=== PATIENT | female | born 1945 | race Caucasian/White ===

== ENCOUNTER 2017-02-20 23:43 | Emergency (ER) | payer OTHER ==
[~2017-02-20] VITALS: Ht 157.5 cm; Wt 83.6 kg
[~2017-02-20 23:43] MED LIST: CALC-179 OR; LEVO.1 PO; MULTCAP13 PO; TRAZ50TA4 PO; ZOLO20CO PO
[2017-02-21 00:13] VITALS: BP 160/89; PULSE 79; RESP 20; TEMP 98.5; O2SAT 95
== END 2017-02-21 01:21 | disposition left against medical advice (07) ==
LOC: PHED 23:43
DX: Z53.21 Procedure and treatment not carried out due to patient leaving prior to being seen by health care provider (principal)
CPT/HCPCS: 99281

== ENCOUNTER 2018-01-18 15:18 | Emergency (ER) | payer OTHER ==
[~2018-01-18] VITALS: Ht 157.5 cm; Wt 82.0 kg
[2018-01-18 15:26] VITALS: BP 206/100; PULSE 85; RESP 16; TEMP 98.6; O2SAT 94
[2018-01-18] MEDS ORDERED: TRAM50TA PO (15:50)
[2018-01-18] MEDS ORDERED: LEVO.1 PO (15:50)
[2018-01-18] MEDS ORDERED: HYDR25TA5 PO (15:50)
[2018-01-18] MEDS ORDERED: SERT25TA83 PO (15:50)
[2018-01-18] MEDS ORDERED: GABA600T PO (15:50)
[2018-01-18] MEDS ORDERED: SODIUM CHLORIDE 0.9% FLUSH 10 ML FLUSH IV FLUSH PRN (16:00)
[2018-01-18] MEDS ORDERED: ACETAMINOPHEN/HYDROcodone 325 MG/5 MG TAB PO ONE (16:00)
[2018-01-18] MEDS ORDERED: ORPHENADRINE INJ 60 MG/2 ML AMP IM ONE (16:00)
--- NOTE | 2018-01-18 16:16 | RADRPT ---
EXAM DATE/TIME: 01/18/2018 15:55 [facility] COMPARISON: No previous studies available for comparison. INDICATIONS : Right sided chest and shoulder pain with shortness of breath. MEDICAL HISTORY : Congestive heart failure. Hypothyroidism. Skin cancer. SURGICAL HISTORY : Hysterectomy. Tonsillectomy. ENCOUNTER: Initial ACUITY: 2 days PAIN SCORE: 10/10 LOCATION: Bilateral chest Right side, down shoulder blade. FINDINGS: Linear parenchymal changes both lung base is noted with elevation of the right hemidiaphragm. The por tion of the bony skeleton visualized is unremarkable. CONCLUSION: Elevation right hemidiaphragm and bibasilar parenchymal changes. No pneumothorax. Mikey Tong MD FACR on January 18, 2018 at 16:11 Board Certified Radiologist. This report was verified electronically.
[2018-01-18 16:26] VITALS: O2SAT 98
--- NOTE | 2018-01-18 17:20 | PD ---
HPI Chief Complaint: Musculoskeletal Complaint Time Seen by Provider: 15:40 Travel History International Travel<30 days: No Contact w/Intl Traveler<30days: No Traveled to known affect area: No History of Present Illness HPI Patient is a 72-year-old female presents emergency department for evaluation of right shoulder pain. Patient states her pain started this morning when she woke up and hurts her when she takes a deep breath and also she has noticed some pain underneath her right breast. Patient denies any nausea vomiting substernal chest pain shortness of breath. She states the pain really radiates from her right posterior neck and she thinks she pulled a muscle but does not recall any injury. She states she took a Soma prior to arrival and this has not helped her. She never had pain like this before. She states the pain is severe, right shoulder radiating from the right abdomen, associated signs and symptoms and contacts as above. PFSH Past Medical History Cancer: No Cardiovascular Problems: No Diabetes: No Diminished Hearing: No Endocrine: No Gastrointestinal Disorders: No Genitourinary: No Hepatitis: No Hiatal Hernia: No Hypertension: No Immune Disorder: No Musculoskeletal: No Neurologic: No Reproductive: No Respiratory: No Immunizations Current: No Thyroid Disease: Yes Past Surgical History Abdominal Surgery: No Cardiac Surgery: No Ear Surgery: No Endocrine Surgery: No Eye Surgery: No Genitourinary Surgery: No Gynecologic Surgery: Yes (HYSTERECTOMY, A&P REPAIR) Hysterectomy: Yes Joint Replacement: No Neurologic Surgery: No Oral Surgery: No Pacemaker: No Thoracic Surgery: No Tonsillectomy: Yes Other Surgery: Yes Social History Alcohol Use: No Tobacco Use: No Substance Use: No Allergies-Medications (Allergen,Severity, Reaction): Coded Allergies: penicillin G (Unverified Allergy, Severe, Anaphylaxis, 01/18/18) Uncoded Allergies: NSAIDS (Allergy, Severe, SWELLING, 01/18/18) Reported Meds & Prescriptions Reported Meds & Active Scripts Active Reported Tramadol (Tramadol HCl) 50 Mg Tab 50 Mg PO Q4H PRN Hydrochlorothiazide 25 Mg Tab 25 Mg PO DAILY PRN Gabapentin 600 Mg Tab 600 Mg PO HS Sertraline (Sertraline HCl) 25 Mg Tab 25 Mg PO DAILY Synthroid (Levothyroxine Sodium) 100 Mcg Tab 100 Mcg PO DAILY Review of Systems Except as stated in HPI: all other systems reviewed are Neg Physical Exam Narrative GENERAL: Well-developed well-nourished, no obvious distress. SKIN: Focused skin assessment warm/dry. HEAD: Atraumatic. Normocephalic. EYES: Pupils equal and round. No scleral icterus. No injection or drainage. ENT: No nasal bleeding or discharge. Mucous membranes pink and moist. NECK: Trachea midline. No JVD. CARDIOVASCULAR: Regular rate and rhythm. No murmur appreciated. RESPIRATORY: No accessory muscle use. Clear to auscultation. Breath sounds equal bilaterally. GASTROINTESTINAL: Abdomen soft, non-tender, nondistended. Hepatic and splenic margins not palpable. No true tenderness in the right upper quadrant, no rebound no percussive tenderness, psoas and obturator signs negative, Eaton sign negative, no CVA tenderness. MUSCULOSKELETAL: No obvious deformities. No clubbing. No cyanosis. No edema. There is no midline CT or L-spine tenderness NEUROLOGICAL: Awake and alert. No obvious cranial nerve deficits. Motor grossly within normal limits. Normal speech. PSYCHIATRIC: Appropriate mood and affect; insight and judgment normal. Data Data Last Documented VS Vital Signs Date Time Temp Pulse Resp B/P (MAP) Pulse Ox O2 Delivery O2 Flow Rate FiO2 01/18/18 16:26 98 Room Air 01/18/18 15:26 98.6 85 16 206/100 (135) Orders Orders Iv Access Insert/Monitor (01/18/18 15:53) Ecg Monitoring (01/18/18 15:53) Oximetry (01/18/18 15:53) Sodium Chloride 0.9% Flush (Ns Flush) (01/18/18 16:00) Chest, Single Ap (01/18/18 15:53) Orphenadrine Inj (Norflex Inj) (01/18/18 16:00) Acetamin-Hydrocod 325-5 Mg ([place] 5-325 (01/18/18 16:00) MDM Medical Decision Making Medical Screen Exam Complete: Yes Emergency Medical Condition: Yes Differential Diagnosis Pneumonia, cough, muscular skeletal pain, liver pain, gallbladder pain. Narrative Course Chest x-ray is obtained which did show an elevated right hemidiaphragm, however on her exam her pain is really localized to the right shoulder muscles, highly likely this is musculoskeletal pain. However the patient does endorse some right upper quadrant pain and with the right elevated hemidiaphragm I recommended to her that she had basic lab work including a CBC and CMP. The patient was given Norflex and [place] and while she had a total of 10/650 of [place] ordered she only wanted 5/325. She told nursing that she did not want blood work, my reassessment the patient she is calm and comfortable and I discussed with her that because of the issues above I cannot exclude life- threatening processes without blood work. She verbalized understanding and agreement and realized that there was a risk of and permanent disability but still did not want to have blood work done and rather wanted to follow-up with her primary care physician. Given that she is alert and awake and oriented and understands the risks she is appropriate to sign out AMA. She was invited to return anytime should she deem necessary. I discussed that without the blood work I could not be under percent sure as the cause of her pains. Diagnosis Primary Impression: Right shoulder pain Additional Impression: Right upper quadrant pain Disposition: 07 AGAINST MEDICAL ADVICE Sedrick De La Torre MD Jan 18, 2018 17:20
== END 2018-01-18 17:44 | disposition left against medical advice (07) ==
LOC: PHED 15:18
DX: M25.511 Pain in right shoulder (principal); R10.11 Right upper quadrant pain; E03.9 Hypothyroidism, unspecified; Z53.20 Procedure and treatment not carried out because of patient's decision for unspecified reasons
CPT/HCPCS: 71045; 96372; 99283; J2360

== ENCOUNTER 2018-02-17 16:15 | Inpatient (IN) | payer OTHER, MEDICARE ==
[~2018-02-17] VITALS: Ht 157.5 cm; Wt 80.1 kg
[2018-02-17] VITALS (10 sets, daily range): BP systolic 135–182; BP diastolic 77–113; PULSE 74–86; RESP 16–18; TEMP 97.9–99; O2SAT 94–98
[~2018-02-17 16:15] MED LIST changes: -CALC-179 OR; +GABA600T PO; +HYDR25TA5 PO; -MULTCAP13 PO; +SERT25TA83 PO; +TRAM50TA PO; -TRAZ50TA4 PO; -ZOLO20CO PO
[2018-02-17] MEDS ORDERED: SODIUM CHLOR 0.9% 1000 ML INJ 1,000 ML IV SCH (16:52)
--- NOTE | 2018-02-17 16:57 | PD ---
HPI Chief Complaint: Abdominal Pain Time Seen by Provider: 16:43 Travel History International Travel<30 days: No Contact w/Intl Traveler<30days: No Traveled to known affect area: No History of Present Illness HPI The patient is a 72-year-old female who presents to the emergency department for right upper quadrant abdominal pain of 2 weeks duration. The patient notes 2 weeks of intermittent right upper quadrant abdominal pain that is colicky, sharp, occasionally radiates to the lateral right flank, and occasionally is associated with nausea. The patient denies any vomiting or diarrhea. She denies any postprandial pain and has been able to eat turkey over the last 2 days without any increase in symptoms. The patient did see her typewriter repairer 2 weeks ago who scheduled a colonoscopy, however, she has had no workup in regards to her gallbladder. She notes 2 days of subjective fever but denies any chills or sweats. The patient denies any cough, chest pain , or dysuria. Symptoms are moderate, worse with inspiration and palpation, and there are no current alleviating factors. She denies any previous history of abdominal surgeries. PFSH Past Medical History Cancer: No Cardiovascular Problems: No Diabetes: No Diminished Hearing: No Endocrine: No Gastrointestinal Disorders: No Genitourinary: No Hepatitis: No Hiatal Hernia: No Hypertension: No Immune Disorder: No Musculoskeletal: No Neurologic: No Reproductive: No Respiratory: No Immunizations Current: No Thyroid Disease: Yes Past Surgical History Abdominal Surgery: No Cardiac Surgery: No Ear Surgery: No Endocrine Surgery: No Eye Surgery: No Genitourinary Surgery: No Gynecologic Surgery: Yes (HYSTERECTOMY, A&P REPAIR) Hysterectomy: Yes Joint Replacement: No Neurologic Surgery: No Oral Surgery: No Pacemaker: No Thoracic Surgery: No Tonsillectomy: Yes Other Surgery: Yes Social History Alcohol Use: No Tobacco Use: No Substance Use: No Allergies-Medications (Allergen,Severity, Reaction): Coded Allergies: penicillin G (Unverified Allergy, Severe, Anaphylaxis, 02/17/18) Uncoded Allergies: NSAIDS (Allergy, Severe, SWELLING, 01/18/18) Reported Meds & Prescriptions Reported Meds & Active Scripts Active Reported Flonase Nasal Assaria (Fluticasone Nasal Assaria) 50 Mcg/Act Assaria 50 Mcg EACH NARE BID Trazodone (Trazodone HCl) 150 Mg Tablet 75 Mg PO HS Tramadol (Tramadol HCl) 50 Mg Tab 50 Mg PO Q4H PRN Hydrochlorothiazide 25 Mg Tab 25 Mg PO DAILY PRN Gabapentin 600 Mg Tab 600 Mg PO HS Sertraline (Sertraline HCl) 25 Mg Tab 25 Mg PO DAILY Synthroid (Levothyroxine Sodium) 100 Mcg Tab 100 Mcg PO DAILY Review of Systems Except as stated in HPI: all other systems reviewed are Neg General / Constitutional: Positive: Fever (2 days of subjective fevers 1 week ago) Cardiovascular: No: Chest Pain or Discomfort Respiratory: No: Shortness of Breath Gastrointestinal: Positive: Nausea, Abdominal Pain, No: Vomiting, Diarrhea, Constipation, Changes in Bowel Habits, Indigestion, Dysphagia, Loss of Appetite Genitourinary: No: Urgency, Frequency, Dysuria Skin: No Rash Physical Exam Narrative GENERAL: Awake, alert, pleasant 72-year-old female who appears her stated age and is in no acute respiratory distress. SKIN: Focused skin assessment warm/dry. HEAD: Atraumatic. Normocephalic. EYES: No injection or drainage. ENT: No nasal bleeding or discharge. Mucous membranes pink and moist. NECK: Trachea midline. No JVD. CARDIOVASCULAR: Regular rate and rhythm. No murmur appreciated. RESPIRATORY: No accessory muscle use. Clear to auscultation. Breath sounds equal bilaterally. GASTROINTESTINAL: Abdomen soft, tender palpation right upper quadrant. No guarding rigidity. Back: No CVA tenderness. MUSCULOSKELETAL: No obvious deformities. No clubbing. No cyanosis. No edema. NEUROLOGICAL: Awake and alert. No obvious cranial nerve deficits. Motor grossly within normal limits. Normal speech. PSYCHIATRIC: Appropriate mood and affect; insight and judgment normal. Data Data Last Documented VS Vital Signs Date Time Temp Pulse Resp B/P (MAP) Pulse Ox O2 Delivery O2 Flow Rate FiO2 02/17/18 19:00 77 16 155/80 (105) 94 Room Air 02/17/18 16:26 97.9 Orders Orders Urinalysis - C+S If Indicated (02/17/18 16:41) Complete Blood Count With Diff (02/17/18 16:52) Comprehensive Metabolic Panel (02/17/18 16:52) Lipase (02/17/18 16:52) Lactic Acid (02/17/18 16:52) Us Abdomen Gallbladder (02/17/18 ) Iv Access Insert/Monitor (02/17/18 16:52) Ecg Monitoring (02/17/18 16:52) Oximetry (02/17/18 16:52) Sodium Chlor 0.9% 1000 Ml Inj (Ns 1000 M (02/17/18 16:52) Sodium Chloride 0.9% Flush (Ns Flush) (02/17/18 17:00) Ct Abd/Pel W Iv Contrast(Rout) (02/17/18 ) Iohexol 350 Inj (Omnipaque 350 Inj) (02/17/18 19:39) Admit Order (Ed Use Only) (02/17/18 20:32) Consult Colorectal Surgery (02/17/18 ) Labs Laboratory Tests Test 02/17/18 17:00 02/17/18 20:09 White Blood Count 9.3 TH/MM3 Red Blood Count 4.24 MIL/MM3 Hemoglobin 11.3 GM/DL Hematocrit 34.1 % Mean Corpuscular Volume 80.3 FL Mean Corpuscular Hemoglobin 26.7 PG Mean Corpuscular Hemoglobin Concent 33.2 % Red Cell Distribution Width 15.1 % Platelet Count 313 TH/MM3 Mean Platelet Volume 8.1 FL Neutrophils (%) (Auto) 66.2 % Lymphocytes (%) (Auto) 17.8 % Monocytes (%) (Auto) 11.5 % Eosinophils (%) (Auto) 3.8 % Basophils (%) (Auto) 0.7 % Neutrophils # (Auto) 6.0 TH/MM3 Lymphocytes # (Auto) 1.7 TH/MM3 Monocytes # (Auto) 1.1 TH/MM3 Eosinophils # (Auto) 0.4 TH/MM3 Basophils # (Auto) 0.1 TH/MM3 CBC Comment DIFF FINAL Differential Comment Blood Urea Nitrogen 11 MG/DL Creatinine 0.60 MG/DL Random Glucose 118 MG/DL Total Protein 6.5 GM/DL Albumin 2.7 GM/DL Calcium Level 8.8 MG/DL Alkaline Phosphatase 204 U/L Aspartate Amino Transf (AST/SGOT) 41 U/L Alanine Aminotransferase (ALT/SGPT) 30 U/L Total Bilirubin 0.2 MG/DL Sodium Level 134 MEQ/L Potassium Level 4.0 MEQ/L Chloride Level 97 MEQ/L Carbon Dioxide Level 31.4 MEQ/L Anion Gap 6 MEQ/L Estimat Glomerular Filtration Rate 98 ML/MIN Lactic Acid Level 0.9 mmol/L Lipase 121 U/L Urine Color YELLOW Urine Turbidity CLEAR Urine pH 6.5 Urine Specific [place] LESS/EQUAL 1.005 Urine Protein NEG mg/dL Urine Glucose (UA) NEG mg/dL Urine Ketones NEG mg/dL Urine Occult Blood NEG Urine Nitrite NEG Urine Bilirubin NEG Urine Urobilinogen 0.2 MG/DL Urine Leukocyte Esterase NEG Urine RBC 0-3 /hpf Urine WBC 3-5 /hpf Urine Squamous Epithelial Cells 0-5 /hpf Urine Bacteria FEW /hpf Microscopic Urinalysis Comment CULT NOT INDICATED MDM Medical Decision Making Medical Screen Exam Complete: Yes Emergency Medical Condition: Yes Medical Record Reviewed: Yes Interpretation(s) Last Impressions Gall Bladder Ultrasound 02/17/18 0000 Signed Impressions: Service Date/Time: Saturday, February 17, 2018 18:03 - CONCLUSION: 1. Multiple masses in the liver measuring up to 7.9 cm. 2. Contracted gallbladder; no shadowing stone seen. Sebastien Solomon MD Laboratory Tests Test 02/17/18 17:00 White Blood Count 9.3 TH/MM3 Red Blood Count 4.24 MIL/MM3 Hemoglobin 11.3 GM/DL Hematocrit 34.1 % Mean Corpuscular Volume 80.3 FL Mean Corpuscular Hemoglobin 26.7 PG Mean Corpuscular Hemoglobin Concent 33.2 % Red Cell Distribution Width 15.1 % Platelet Count 313 TH/MM3 Mean Platelet Volume 8.1 FL Neutrophils (%) (Auto) 66.2 % Lymphocytes (%) (Auto) 17.8 % Monocytes (%) (Auto) 11.5 % Eosinophils (%) (Auto) 3.8 % Basophils (%) (Auto) 0.7 % Neutrophils # (Auto) 6.0 TH/MM3 Lymphocytes # (Auto) 1.7 TH/MM3 Monocytes # (Auto) 1.1 TH/MM3 Eosinophils # (Auto) 0.4 TH/MM3 Basophils # (Auto) 0.1 TH/MM3 CBC Comment DIFF FINAL Differential Comment Blood Urea Nitrogen 11 MG/DL Creatinine 0.60 MG/DL Random Glucose 118 MG/DL Total Protein 6.5 GM/DL Albumin 2.7 GM/DL Calcium Level 8.8 MG/DL Alkaline Phosphatase 204 U/L Aspartate Amino Transf (AST/SGOT) 41 U/L Alanine Aminotransferase (ALT/SGPT) 30 U/L Total Bilirubin 0.2 MG/DL Sodium Level 134 MEQ/L Potassium Level 4.0 MEQ/L Chloride Level 97 MEQ/L Carbon Dioxide Level 31.4 MEQ/L Anion Gap 6 MEQ/L Estimat Glomerular Filtration Rate 98 ML/MIN Lactic Acid Level 0.9 mmol/L Lipase 121 U/L CT the abdomen and pelvis reveals a 4.4 cm mass in the colon at the splenic flexure which also appears to be associated with a partial intussusception. There are numerous hepatic metastasis with the largest measuring up to 11.3 cm near the dome of the liver. Lung bases demonstrate some segmental atelectasis. No pleural or pericardial effusion. Spleen, adrenals, kidneys, and pancreas are unremarkable. No free fluid. No bowel obstruction. No adenopathy. There is a lucency on the left side of the L2 vertebral body which probably represents a hemangioma. 4.4 cm colonic mass at the splenic flexure with numerous hepatic metastasis measuring up to about 11 cm in diameter. Differential Diagnosis Differential diagnosis includes acute cholecystitis, biliary colic, choledocholithiasis, symptomatic gallstone, pancreatitis, pyelonephritis, lower lobe pneumonia, diverticulitis. Narrative Course IV was established, labs are drawn and sent, and the patient was placed on cardiac telemetry monitoring and continuous pulse oximetry monitoring. The patient declined pain medication. Patient was placed on IV fluids, kept n.p.o. , and ultrasound of the gallbladder was ordered. Laboratory evaluation is essentially unremarkable. Ultrasound is positive for multiple hepatic masses and no visible gallstone. Therefore, CT of the abdomen and pelvis with contrast was obtained which reveals a 4.4 cm colonic mass in the colon at the splenic flexure which also appears to be associated with a partial intussusception. The patient also has numerous hepatic metastasis with the largest measuring up to 11.3 cm near the dome of the liver. The patient has never had a colonoscopy, however, scheduled next week to have a colonoscopy performed. She cannot recall the name of the typewriter repairer. As the patient does appear to have a colonic mass with partial intussusception, the on- call colorectal surgeon, Dr. Glasgow, was paged at 8 PM. I discussed the patient with Dr. Glasgow who states the patient may or may not need surgery depending upon obstructive symptoms. The patient has been constipated but continues to have some bowel movements. [facility] The patient will be transferred to the [facility] in case she needs surgery for possible obstruction from large colonic mass. She will also need tissue biopsy and hematology/oncology input after definitive diagnosis. Physician Communication Physician Communication The on-call colorectal surgeon, Dr. Glasgow, was paged at 8:02 PM. [facility] were also paged for admission. I discussed the patient with Yue, the mid-level provider, who agrees with admission. Diagnosis Primary Impression: Colonic mass Additional Impressions: Intussusception of large intestine Hepatic metastasis Admitting Information Admitting Physician Requests: Admit Condition: Stable Pipo Vargas MD Feb 17, 2018 16:57
[2018-02-17] MEDS ORDERED: SODIUM CHLORIDE 0.9% FLUSH 10 ML FLUSH IV FLUSH PRN (17:00)
[2018-02-17] MEDS ORDERED: TRAZ1TAB14 PO (17:04)
[2018-02-17] MEDS ORDERED: FLUT1SPR5 EACH NARE (17:04)
[2018-02-17 17:13] LABS: BASOPHIL # 0.1 TH/MM3 (0-0.2); BASOPHIL % 0.7 % (0.0-2.0); EOSINOPHIL # 0.4 TH/MM3 (0-0.4); EOSINOPHIL % 3.8 % (0.0-4.0); HEMATOCRIT 34.1 % (35.0-46.0); HEMOGLOBIN 11.3 GM/DL (11.6-15.3); LYMPH % 17.8 % (9.0-44.0); LYMPHOCYTE # 1.7 TH/MM3 (1.0-4.8); MEAN CELL VOLUME 80.3 FL (80.0-100.0); MEAN CORPUSCULAR HEMOGLOBIN 26.7 PG (27.0-34.0); MEAN CORPUSCULAR HGB CONC 33.2 % (32.0-36.0); MEAN PLATELET VOLUME 8.1 FL (7.0-11.0); MONO % 11.5 % (0.0-8.0); MONOCYTE # 1.1 TH/MM3 (0-0.9); NEUT % 66.2 % (16.0-70.0); PLATELET COUNT 313 TH/MM3 (150-450); RED BLOOD COUNT 4.24 MIL/MM3 (4.00-5.30); RED CELL DISTRIBUTION WIDTH 15.1 % (11.6-17.2); WHITE BLOOD COUNT 9.3 TH/MM3 (4.0-11.0)
[2018-02-17 17:21] LABS: CHLORIDE 97 MEQ/L (98-107); SODIUM (NA) 134 MEQ/L (136-145)
[2018-02-17 17:24] LABS: CALCIUM 8.8 MG/DL (8.5-10.1)
[2018-02-17 17:25] LABS: ALBUMIN 2.7 GM/DL (3.4-5.0); BICARBONATE 31.4 MEQ/L (21.0-32.0); BLOOD UREA NITROGEN 11 MG/DL (7-18); GLUCOSE,RANDOM 118 MG/DL (74-106)
[2018-02-17 17:28] LABS: ALT (GPT) 30 U/L (10-53); AST (GOT) 41 U/L (15-37); GLOMERULAR FILTRATION RATE 98 ML/MIN (>89)
[2018-02-17 17:29] LABS: TOTAL BILIRUBIN ADULT 0.2 MG/DL (0.2-1.0); TOTAL PROTEIN 6.5 GM/DL (6.4-8.2)
[2018-02-17 17:31] LABS: ALKALINE PHOSPHATASE 204 U/L (45-117)
--- NOTE | 2018-02-17 18:33 | RADRPT ---
EXAM DATE/TIME: 02/17/2018 18:03 [facility] COMPARISON: No previous studies available for comparison. INDICATIONS : Right upper quadrant pain. MEDICAL HISTORY : Hypothyroidism. Cataracts. Skin cancer. Left finger fracture. Left radius/wrist fracture. SURGICAL HISTORY : Tonsillectomy. Hysterectomy. Left arm surgery. ENCOUNTER: Initial ACUITY: 2 weeks PAIN SCORE: 7/10 LOCATION: Right upper quadrant MEASUREMENTS: LIVER: 19.1 cm length COMMON DUCT: 4 mm RIGHT KIDNEY: 10.3 x 4.5 x 4.5 cm FINDINGS: LIVER: Abnormal. There are multiple masses in the liver, the largest of which is in the left lobe measuring 7.9 x 7.7 cm. Additional dominant masses in the right lobe measured 5.1 x 5.0 cm and 7.0 x 6.8 cm. The masses have well-defined margins and are either mildly hyperechoic or isoechoic. No evidence of biliary ductal dilatation. Hepatopedal flow is seen in the portal vein. COMMON DUCT: No intraluminal mass or stone visualized. GALLBLADDER: No stones seen in the contracted gallbladder. PANCREAS: The visualized portions are within normal limits. RIGHT KIDNEY: No evidence of hydronephrosis, stone, or mass. CONCLUSION: 1. Multiple masses in the liver measuring up to 7.9 cm. 2. Contracted gallbladder; no shadowing stone seen. Sebastien Solomon MD on February 17, 2018 at 18:28 Board Certified Radiologist. This report was verified electronically.
[2018-02-17] MEDS ORDERED: IOHEXOL 350 MG/ML 10 ML VIAL (for RAD DIAG) IVCONTRAST ONE (19:39)
--- NOTE | 2018-02-17 19:55 | RADRPT ---
EXAM DATE/TIME: 02/17/2018 19:31 [facility] COMPARISON: No previous studies available for comparison. INDICATIONS : Intermittent right upper quadrant pain. Abnormal ultrasound. Liver masses. IV CONTRAST: 95 cc Omnipaque 350 (iohexol) IV ORAL CONTRAST: No oral contrast ingested. RADIATION DOSE: 15.97 CTDIvol (mGy) MEDICAL HISTORY : Skin cancer. SURGICAL HISTORY : Hysterectomy. ENCOUNTER: Initial ACUITY: 2 weeks PAIN SCALE: 7/10 LOCATION: Right upper quadrant TECHNIQUE: Volumetric scanning of the abdomen and pelvis was performed. Using automated exposure control and ad justment of the mA and/or kV according to patient size, radiation dose was kept as low as reasonably achievable to obtain optimal diagnostic quality images. DICOM format image data is available electro nically for review and comparison. FINDINGS: There is a 4.4 cm mass in the colon at the splenic flexure which also appears to be associated with a partial intussusception. There are numerous hepatic metastases largest measuring up to 11.3 cm near the dome of the liver. Lung bases demonstrate some subsegmental atelectasis. No pleural or pericardial effusion. Spleen, adrenals, kidneys and pancreas are unremarkable. No free fluid. No bowel obstruction. No adenopathy. There is a lucency on the left side of L2 vertebr al body which probably represents a hemangioma. CONCLUSION: 4.4 cm colonic mass at the splenic flexure with numerous hepatic metastases measuring up to about 11 cm in diameter. Miko Lopes MD on February 17, 2018 at 19:45 Board Certified Radiologist. This report was verified electronically.
[2018-02-17 20:16] LABS: BILIRUBIN, URINE NEG (NEG); BLOOD, URINE NEG (NEG); GLUCOSE,URINE NEG (NEG); KETONE, URINE NEG (NEG); NITRITE,URINE NEG (NEG); PH, URINE 6.5 (5.0-8.5); URINE COLOR YELLOW (YELLW/STRAW); URINE LEUKOCYTE ESTERASE NEG (NEG)
[2018-02-17 20:24] LABS: RBC, URINE 0-3 /hpf (0-3); SQUAMOUS EPITHELIAL CELL URINE 0-5 /hpf (0-5)
[2018-02-17 20:25] LABS: BACTERIA, URINE FEW /hpf
[2018-02-17] MEDS ORDERED: PROCHLORPERAZINE 25 MG SUPP RECTAL PRN (20:45)
[2018-02-17] MEDS ORDERED: MORPHINE SULFATE 2 MG/ML SYRINGE IV PUSH PRN (20:45)
[2018-02-17] MEDS ORDERED: ACETAMINOPHEN 650 MG SUPP RECTAL PRN (20:45)
[2018-02-17] MEDS ORDERED: NALOXONE HCL 0.4 MG/ML AMP IV PUSH PRN (20:45)
[2018-02-17] MEDS: SODIUM CHLORIDE 0.9% FLUSH 10 ML FLUSH IV FLUSH SCH (21:57)
--- NOTE | 2018-02-17 23:23 | HHI.HP ---
[facility] Unknown Admission Diagnosis Colonic mass with partial intussusception, hepatic metastasis, abdom Diagnoses: Chief Complaint: Progressively worsening abdominal pain Travel History International Travel<30 Days: No Contact w/Intl Traveler <30 Da: No Traveled to Known Affected Are: No History of Present Illness Ms. Jeffery is a 72 y/o female who recently had positive preoperative fecal occult blood testing resulting in gastroenterology referral with planned colonoscopy in the near future who presented to the emergency room on 02/17/2018 complaining of progressively worsening abdominal pain. Abdomen/pelvis CT showed 4.4 cm colonic mass at splenic flexure and numerous hepatic metastases. The patient is admitted to [facility] for further evaluation and management. Patient is seen in her hospital room. She reports that she has been having abdominal bloating and feeling "gassy" for about a month. Approximately 1 week ago, she developed severe RUQ abdominal pain. A few days ago, she started to note that her pain was significantly exacerbated by deep breathing. The pain is intermittent. She states it became so severe that she had to go to the ER. Her pain has been successfully relieved by IV Morphine. Last BM was medium sized and occurred 02/16/18. She denies hematochezia or tarry stools. Review of Systems Except as stated in HPI: all other systems reviewed are Neg Past Family Social History Past Medical History Hypothyroidism Hearing impairment, left side Cataracts CHF-patient is uncertain of etiology Denies history of diabetes mellitus, coronary artery disease, atrial fibrillation, COPD/asthma/emphysema, hepatitis, kidney disease, DVT, PE, CVA, seizures, or cancer. . Past Surgical History Tonsillectomy Hysterectomy Left ulnar nerve transposition surgery Bilateral feet hammertoe repair Left radius fracture repair . Reported Medications Reported Meds & Active Scripts Active Reported Flonase Nasal Rice (Fluticasone Nasal Rice) 50 Mcg/Act Rice 50 Mcg EACH NARE BID Trazodone (Trazodone HCl) 150 Mg Tablet 75 Mg PO HS Tramadol (Tramadol HCl) 50 Mg Tab 50 Mg PO Q4H PRN Hydrochlorothiazide 25 Mg Tab 25 Mg PO DAILY PRN Gabapentin 600 Mg Tab 600 Mg PO HS Sertraline (Sertraline HCl) 25 Mg Tab 25 Mg PO DAILY Synthroid (Levothyroxine Sodium) 100 Mcg Tab 100 Mcg PO DAILY . Allergies: Coded Allergies: penicillin G (Unverified Allergy, Severe, Anaphylaxis, 02/17/18) Uncoded Allergies: NSAIDS (Allergy, Severe, SWELLING, 01/18/18) Family History Maternal grandmother with colorectal cancer . Social History Tobacco: Remote history of smoking 44 years ago, was a social smoker for about 5 years, smoked only a few cigarettes when out having drinks with friends Alcohol: Occasional social use Illicit Drugs: Denies . Physical Exam Vital Signs Vital Signs Date Time Temp Pulse Resp B/P (MAP) Pulse Ox O2 Delivery O2 Flow Rate FiO2 02/17/18 23:17 99.0 83 18 152/89 (110) 96 02/17/18 22:33 82 18 157/77 (103) 95 02/17/18 22:02 18 02/17/18 21:00 82 18 159/79 (105) 96 Room Air 02/17/18 20:00 86 18 182/113 (136) 95 Room Air 02/17/18 19:00 77 16 155/80 (105) 94 Room Air 02/17/18 19:00 16 02/17/18 18:15 76 18 158/83 (108) 97 Room Air 02/17/18 17:18 74 16 135/85 (102) 95 Room Air 02/17/18 16:57 98 Room Air 02/17/18 16:26 97.9 82 16 136/78 (97) 96 Physical Exam Constitutional: This is a pleasant, overweight 72-year-old female patient, in no apparent distress. Integumentary: Skin is cool and dry. Patient has numerous dark discolorations to bilateral lower extremities -reports this as "scarring" HEAD: Atraumatic. Normocephalic. EYES: No scleral icterus. No injection or drainage. ENT: Nose without bleeding, purulent drainage. NECK: Trachea midline. No JVD or lymphadenopathy. CARDIOVASCULAR: Regular rate and rhythm without murmurs, gallops, or rubs. RESPIRATORY: Clear to auscultation. Breath sounds equal bilaterally. No wheezes , rales, or rhonchi. GASTROINTESTINAL: Normally active bowel sounds. Abdomen soft, tender to palpation of right upper quadrant. No guarding. MUSCULOSKELETAL: Extremities without clubbing, cyanosis, or edema. No calf tenderness. NEUROLOGICAL: Awake and alert. Motor and sensory grossly within normal limits. Normal speech. . Laboratory Laboratory Tests Test 02/17/18 17:00 02/17/18 20:09 White Blood Count 9.3 Red Blood Count 4.24 Hemoglobin 11.3 Hematocrit 34.1 Mean Corpuscular Volume 80.3 Mean Corpuscular Hemoglobin 26.7 Mean Corpuscular Hemoglobin Concent 33.2 Red Cell Distribution Width 15.1 Platelet Count 313 Mean Platelet Volume 8.1 Neutrophils (%) (Auto) 66.2 Lymphocytes (%) (Auto) 17.8 Monocytes (%) (Auto) 11.5 Eosinophils (%) (Auto) 3.8 Basophils (%) (Auto) 0.7 Neutrophils # (Auto) 6.0 Lymphocytes # (Auto) 1.7 Monocytes # (Auto) 1.1 Eosinophils # (Auto) 0.4 Basophils # (Auto) 0.1 CBC Comment DIFF FINAL Differential Comment Blood Urea Nitrogen 11 Creatinine 0.60 Random Glucose 118 Total Protein 6.5 Albumin 2.7 Calcium Level 8.8 Alkaline Phosphatase 204 Aspartate Amino Transf (AST/SGOT) 41 Alanine Aminotransferase (ALT/SGPT) 30 Total Bilirubin 0.2 Sodium Level 134 Potassium Level 4.0 Chloride Level 97 Carbon Dioxide Level 31.4 Anion Gap 6 Estimat Glomerular Filtration Rate 98 Lactic Acid Level 0.9 Lipase 121 Urine Color YELLOW Urine Turbidity CLEAR Urine pH 6.5 Urine Specific [place] LESS/EQUAL 1.005 Urine Protein NEG Urine Glucose (UA) NEG Urine Ketones NEG Urine Occult Blood NEG Urine Nitrite NEG Urine Bilirubin NEG Urine Urobilinogen 0.2 Urine Leukocyte Esterase NEG Urine RBC 0-3 Urine WBC 3-5 Urine Squamous Epithelial Cells 0-5 Urine Bacteria FEW Microscopic Urinalysis Comment CULT NOT INDICATED Result Diagram: 02/17/18 1700 02/17/18 1700 Imaging Last Impressions Gall Bladder Ultrasound 02/17/18 0000 Signed Impressions: Service Date/Time: Saturday, February 17, 2018 18:03 - CONCLUSION: 1. Multiple masses in the liver measuring up to 7.9 cm. 2. Contracted gallbladder; no shadowing stone seen. Sebastien Solomon MD Abdomen/Pelvis CT 02/17/18 0000 Signed Impressions: Service Date/Time: Saturday, February 17, 2018 19:31 - CONCLUSION: 4.4 cm colonic mass at the splenic flexure with numerous hepatic metastases measuring up to about 11 cm in diameter. Miko Lopes MD . Caprini VTE Risk Assessment Caprini VTE Risk Assessment: Mod/High Risk (score >= 2) Caprini Risk Assessment Model Point Value = 1 Point Value = 2 Point Value = 3 Point Value = 5 Age 41-60 Minor surgery BMI > 25 kg/m2 Swollen legs Varicose veins or History of unexplained or recurrent spontaneous Oral contraceptives or hormone replacement Sepsis (< 1 month) Serious lung disease, including pneumonia (< 1 month) Abnormal pulmonary function Acute myocardial infarction Congestive heart failure (< 1 month) History of inflammatory bowel disease Medical patient at bed rest Age 61-74 Arthroscopic surgery Major open surgery (> 45 min) Laparoscopic surgery (> 45 min) Malignancy Confined to bed (> 72 hours) Immobilizing plaster cast Central venous access Age >= 75 History of VTE Family history of VTE Factor V Leiden Prothrombin [id number] Lupus anticoagulant Anticardiolipin antibodies Elevated serum homocysteine Heparin-induced thrombocytopenia Other congenital or acquired thrombophilia Stroke (< 1 month) Elective arthroplasty Hip, pelvis, or leg fracture Acute spinal cord injury (< 1 month) Prophylaxis Regimen Total Risk Factor Score Risk Level Prophylaxis Regimen 0-1 Low Early ambulation 2 Moderate Order ONE of the following: *Sequential Compression Device (SCD) *Heparin 5000 units SQ BID 3-4 Higher Order ONE of the following medications: *Heparin 5000 units SQ TID *Enoxaparin/Lovenox 40 mg SQ daily (WT < 150 kg, CrCl > 30 mL/min) *Enoxaparin/Lovenox 30 mg SQ daily (WT < 150 kg, CrCl > 10-29 mL/min) *Enoxaparin/Lovenox 30 mg SQ BID (WT < 150 kg, CrCl > 30 mL/min) AND/OR *Sequential Compression Device (SCD) 5 or more Highest Order ONE of the following medications: *Heparin 5000 units SQ TID (Preferred with Epidurals) *Enoxaparin/Lovenox 40 mg SQ daily (WT < 150 kg, CrCl > 30 mL/min) *Enoxaparin/Lovenox 30 mg SQ daily (WT < 150 kg, CrCl > 10-29 mL/min) *Enoxaparin/Lovenox 30 mg SQ BID (WT < 150 kg, CrCl > 30 mL/min) AND *Sequential Compression Device (SCD) Assessment and Plan Problem List: (1) Colonic mass ICD Code: K63.9 - Disease of intestine, unspecified Status: Acute (2) Intussusception of large intestine ICD Code: K56.1 - Intussusception Status: Acute (3) Hepatic metastasis ICD Code: C78.7 - Secondary malignant neoplasm of liver and intrahepatic bile duct Status: Acute Assessment and Plan Ms. Jeffery is a 72 y/o female who recently had positive preoperative fecal occult blood testing resulting in gastroenterology referral with planned colonoscopy in the near future who presented to the emergency room on 02/17/2018 complaining of progressively worsening abdominal pain. Abdomen/pelvis CT showed 4.4 cm colonic mass at splenic flexure and numerous hepatic metastases. The patient is admitted to [facility] for further evaluation and management. Colon Mass with partial intussusception and hepatic metastases -Abdomen/pelvis CT showed 4.4 cm colonic mass at splenic flexure which also appears to be associated with partial intussusception with numerous hepatic metastases -Dr. Glasgow, colorectal surgeon, was consulted by ER physician - assistance appreciated -Patient is being kept n.p.o. pending surgical evaluation -Consult medical oncology - assistance appreciated -Morphine 2 mg IV every 3 hours as needed pain Hypothyroidism -Continue home medications Depression -Continue home Desyrel and Zoloft Hyponatremia, mild -Sodium 134 on admission -Patient received normal saline at 125 cc/h 1 bag -has history of CHF of uncertain etiology -Recheck BMP in a.m. and follow results/sodium levels Mild anemia likely secondary to slow GI bleed due to colon mass -Patient has a history of positive fecal occult blood testing -Recheck CBC in a.m. and follow results DVT prophylaxis -SCDs/teds . Discussed Condition With Patient, RN, and Dr. Butler . Physician Certification 2 Midnight Certification Type: Admission for Inpatient Services Order for Inpatient Services The services are ordered in accordance with Medicare regulations or non- Medicare payer requirements, as applicable. In the case of services not specified as inpatient-only, they are appropriately provided as inpatient services in accordance with the 2-midnight benchmark. Estimated LOS (days): 3 days is the estimated time the patient will need to remain in the hospital, assuming treatment plan goals are met and no additional complications. Post-Hospital Plan: Home Yue Garcia Feb 17, 2018 23:23
[2018-02-18] VITALS (15 sets, daily range): BP systolic 126–176; BP diastolic 66–95; PULSE 68–97; RESP 18–20; TEMP 98.1–98.8; O2SAT 92–97
[2018-02-18] MEDS: FLUTICASONE PROPIONATE 50 MCG/ACT 16 GM NASAL SPRAY EACH NARE SCH ×3 (00:27→21:00)
[2018-02-18] MEDS: GABAPENTIN 300 MG CAP PO SCH ×2 (00:29→20:55)
[2018-02-18] MEDS: traZODone HCL 50 MG TAB PO SCH ×2 (00:40→20:55)
[2018-02-18] MEDS: SODIUM CHLORIDE 0.9% FLUSH 10 ML FLUSH IV FLUSH PRN ×2 (00:41→04:46)
[2018-02-18] MEDS: LEVOTHYROXINE SODIUM 100 MCG TAB PO SCH (07:04)
[2018-02-18] MEDS: SODIUM CHLORIDE 0.9% FLUSH 10 ML FLUSH IV FLUSH SCH ×2 (08:20→21:20)
[2018-02-18] MEDS ORDERED: SERTRALINE HCL 50 MG TAB PO SCH (09:00)
[2018-02-18] MEDS ORDERED: INFLUENZA VIRUS VACCINE (QUADRIVALENT) 0.5 ML SYR IM ONE (09:00)
[2018-02-18] MEDS ORDERED: PNEUMOCOCCAL POLYVALENT INJ 25 MCG/0.5 ML SYR IM ONE (09:00)
--- NOTE | 2018-02-18 10:37 | HHI.PR ---
Subjective Remarks Mild RUQ abdominal pain. Requesting a suppository which she normally takes at home and helps relieve her pain. Objective Vitals Vital Signs Date Time Temp Pulse Resp B/P (MAP) Pulse Ox O2 Delivery O2 Flow Rate FiO2 02/18/18 10:35 83 02/18/18 08:00 98.3 86 20 147/88 (107) 92 02/18/18 06:05 83 02/18/18 05:01 85 02/18/18 04:03 86 02/18/18 03:20 98.7 84 18 126/66 (86) 93 02/18/18 03:05 84 02/18/18 02:07 97 02/18/18 01:01 79 02/18/18 00:30 98.6 84 18 163/91 (115) 94 02/18/18 00:00 85 02/17/18 23:17 99.0 83 18 152/89 (110) 96 02/17/18 23:03 84 02/17/18 22:33 82 18 157/77 (103) 95 02/17/18 22:02 18 02/17/18 21:00 82 18 159/79 (105) 96 Room Air 02/17/18 20:00 86 18 182/113 (136) 95 Room Air 02/17/18 19:00 77 16 155/80 (105) 94 Room Air 02/17/18 19:00 16 02/17/18 18:15 76 18 158/83 (108) 97 Room Air 02/17/18 17:18 74 16 135/85 (102) 95 Room Air 02/17/18 16:57 98 Room Air 02/17/18 16:26 97.9 82 16 136/78 (97) 96 I/O 02/17/18 02/17/18 02/17/18 02/18/18 02/18/18 02/18/18 07:00 15:00 23:00 07:00 15:00 23:00 Intake Total 250 ml 760 ml Output Total 200 ml 300 ml Balance 250 ml 560 ml -300 ml Intake Oral 60 ml IV Total 250 ml 700 ml Output Urine Total 200 ml 300 ml Result Diagram: 02/17/18 1700 02/17/18 1700 Objective Remarks GENERAL: This is a well-nourished, well-developed patient, in no apparent distress. CARDIOVASCULAR: Normal rate and regular rhythm without murmurs, gallops, or rubs. RESPIRATORY: Good respiratory efforts. Breath sounds equal and clear to auscultation bilaterally. GASTROINTESTINAL: Abdomen soft, mild right upper quadrant discomfort with deep palpation. Normal and active bowel sounds. MUSCULOSKELETAL: Extremities without cyanosis, or edema. NEURO: Alert & Oriented x4 to person, place, time, situation. Moves all ext x4 PSYCH: Appropriate mood and affect. A/P Problem List: (1) Colonic mass ICD Code: K63.9 - Disease of intestine, unspecified Status: Acute (2) Intussusception of large intestine ICD Code: K56.1 - Intussusception Status: Acute (3) Hepatic metastasis ICD Code: C78.7 - Secondary malignant neoplasm of liver and intrahepatic bile duct Status: Acute Assessment and Plan 72 y/o female who recently had positive preoperative fecal occult blood testing resulting in gastroenterology referral with planned colonoscopy in the near future who presented to the emergency room on 02/17/2018 complaining of progressively worsening abdominal pain. Abdomen/pelvis CT showed 4.4 cm colonic mass at splenic flexure and numerous hepatic metastases. The patient is admitted to [facility] for further evaluation and management. Colon Mass with partial intussusception and hepatic metastases -Abdomen/pelvis CT showed 4.4 cm colonic mass at splenic flexure which also appears to be associated with partial intussusception with numerous hepatic metastases -Dr. Glasgow, colorectal surgeon consulted -Medical oncology consulted - Continue with pain control as needed. Start clear liquid diet. Hypothyroidism -Continue home medications Depression -Continue home Desyrel and Zoloft Hyponatremia, mild -Sodium 134 on admission -Patient received normal saline at 125 cc/h 1 bag -has history of CHF of uncertain etiology -She refused lab today. Mild anemia likely secondary to slow GI bleed due to colon mass -Patient has a history of positive fecal occult blood testing -Follow CBC. Patient aware of the importance of getting lab work done. DVT prophylaxis -SCDs/Aicha Mary MD Feb 18, 2018 10:37
[2018-02-18] MEDS ORDERED: BISACODYL 10 MG SUPP RECTAL PRN (11:00)
[2018-02-18] MEDS ORDERED: LACTULOSE SYRUP 20 GM/30 ML CUP PO PRN (11:00)
[2018-02-18] MEDS ORDERED: SENNOSIDES 8.6 MG TAB PO PRN (11:00)
[2018-02-18] MEDS ORDERED: MAGNESIUM HYDROXIDE SUSP 30 ML CUP PO PRN (11:00)
[2018-02-18] MEDS ORDERED: PILL SPLITTER OTHER PRN (11:30)
[2018-02-18] MEDS ORDERED: ACETAMINOPHEN/HYDROcodone 325 MG/5 MG TAB PO PRN (11:45)
[2018-02-18] MEDS ORDERED: HYDROCHLOROTHIAZIDE 25 MG TAB PO ONE (20:15)
[2018-02-18] MEDS ORDERED: MAGNESIUM CITRATE SOLN 300 ML BTL PO ONE (21:30)
--- NOTE | 2018-02-18 21:46 | HHI.PR ---
Subjective Remarks C/R Surg afebrile, VSS less abd pain stool without blood NO N/V Objective - Vital Signs Date Time Temp Pulse Resp B/P (MAP) Pulse Ox O2 Delivery O2 Flow Rate FiO2 02/18/18 19:29 98.1 76 18 170/92 (118) 97 02/17/18 21:00 Room Air Result Diagram: 02/17/18 1700 02/17/18 1700 Objective Remarks PE alert Abd - soft, non-tender, min tympany A/P Assessment and Plan Imp: Ca splenic flexure by CT, liver mets will gently prep for colonoscopy, and see how tight the tumor lumen is - if adeq , would hold surgery, and proceed with chemoRX if pt wishes to if high risk of obstruction, will see if stenting or resection may be necessary Faizan Glasgow MD Feb 18, 2018 21:46
[2018-02-19] VITALS (8 sets, daily range): BP systolic 107–171; BP diastolic 71–108; PULSE 68–86; RESP 16–22; TEMP 97.2–99; O2SAT 93–96
[2018-02-19] MEDS ORDERED: MAGNESIUM CITRATE SOLN 300 ML BTL PO PRN (01:30)
[2018-02-19] MEDS ORDERED: METOPROLOL TARTRATE 25 MG TAB PO PRN (02:15)
[2018-02-19] MEDS ORDERED: LACTATED RINGER'S 1000 ML IV PRN (02:15)
[2018-02-19] MEDS ORDERED: CHLORHEXIDINE GLUCONATE 2 % 1 PACK (2 CLOTHS) TOPICAL PRN (02:15)
[2018-02-19] MEDS ORDERED: POVIDONE IODINE 5% (ANTISEPSIS KIT) 4 APPLICATIONS EACH NARE PRN (02:15)
[2018-02-19] MEDS ORDERED: SODIUM CHLORID 0.9% 500 ML IV PRN (02:15)
[2018-02-19 06:33] LABS: AUTOMATED NEUTROPHIL # 4.4 TH/MM3 (1.8-7.7); BASOPHIL # 0.1 TH/MM3 (0-0.2); BASOPHIL % 1.2 % (0.0-2.0); EOSINOPHIL # 0.4 TH/MM3 (0-0.4); EOSINOPHIL % 5.2 % (0.0-4.0); HEMATOCRIT 35.4 % (35.0-46.0); HEMOGLOBIN 11.6 GM/DL (11.6-15.3); LYMPH % 21.2 % (9.0-44.0); LYMPHOCYTE # 1.6 TH/MM3 (1.0-4.8); MEAN CELL VOLUME 79.9 FL (80.0-100.0); MEAN CORPUSCULAR HEMOGLOBIN 26.1 PG (27.0-34.0); MEAN CORPUSCULAR HGB CONC 32.7 % (32.0-36.0); MEAN PLATELET VOLUME 7.5 FL (7.0-11.0); MONO % 13.5 % (0.0-8.0); NEUT % 58.9 % (16.0-70.0); PLATELET COUNT 351 TH/MM3 (150-450); RED BLOOD COUNT 4.43 MIL/MM3 (4.00-5.30); RED CELL DISTRIBUTION WIDTH 15.6 % (11.6-17.2); WHITE BLOOD COUNT 7.4 TH/MM3 (4.0-11.0)
[2018-02-19 07:06] LABS: ALBUMIN 2.6 GM/DL (3.4-5.0); ALT (GPT) 29 U/L (10-53); AST (GOT) 40 U/L (15-37); BICARBONATE 29.1 MEQ/L (21.0-32.0); BLOOD UREA NITROGEN 7 MG/DL (7-18); CALCIUM 8.6 MG/DL (8.5-10.1); CHLORIDE 105 MEQ/L (98-107); CREATININE 0.48 MG/DL (0.50-1.00); GLOMERULAR FILTRATION RATE 127 ML/MIN (>89); GLUCOSE,RANDOM 100 MG/DL (74-106); IRON (FE) 23 MCG/DL (50-170); SODIUM (NA) 143 MEQ/L (136-145)
[2018-02-19 07:16] LABS: % SATURATION IRON PROFILE 8.5 % (20-50); ALKALINE PHOSPHATASE 214 U/L (45-117); FERRITIN 244 NG/ML (8-252); TOTAL BILIRUBIN ADULT 0.3 MG/DL (0.2-1.0); TOTAL IRON BINDING CAPACITY 270 MCG/DL (250-450); TOTAL PROTEIN 6.2 GM/DL (6.4-8.2)
[2018-02-19] MEDS: LEVOTHYROXINE SODIUM 100 MCG TAB PO SCH (07:42)
[2018-02-19] MEDS: SODIUM CHLORIDE 0.9% FLUSH 10 ML FLUSH IV FLUSH SCH ×2 (09:00→21:00)
--- NOTE | 2018-02-19 09:21 | PD.ONC.PN ---
Subjective Subjective Remarks Afebrile overnight. patient resting in bed. she is anxious about colonoscopy today and the likelihood that she has cancer. she is anxious about the different treatments she may have to undergo. she had multiple bowel movements overnight d/t colonoscopy prep. Objective Data Date Time Temp Pulse Resp B/P (MAP) Pulse Ox O2 Delivery O2 Flow Rate FiO2 02/19/18 04:09 99.0 80 16 141/74 (96) 93 02/18/18 23:53 98.8 68 18 150/91 (110) 95 02/18/18 19:29 98.1 76 18 170/92 (118) 97 02/18/18 16:00 98.2 84 20 176/95 (122) 95 02/18/18 12:00 98.3 80 20 157/91 (113) 96 02/18/18 10:35 83 02/19/18 02/19/18 02/19/18 07:00 15:00 23:00 Output Total 1175 ml Balance -1175 ml Result Diagram: 02/19/1817 02/19/18 0617 Laboratory Results Laboratory Tests Test 02/19/18 06:17 White Blood Count 7.4 TH/MM3 Red Blood Count 4.43 MIL/MM3 Hemoglobin 11.6 GM/DL Hematocrit 35.4 % Mean Corpuscular Volume 79.9 FL Mean Corpuscular Hemoglobin 26.1 PG Mean Corpuscular Hemoglobin Concent 32.7 % Red Cell Distribution Width 15.6 % Platelet Count 351 TH/MM3 Mean Platelet Volume 7.5 FL Neutrophils (%) (Auto) 58.9 % Lymphocytes (%) (Auto) 21.2 % Monocytes (%) (Auto) 13.5 % Eosinophils (%) (Auto) 5.2 % Basophils (%) (Auto) 1.2 % Neutrophils # (Auto) 4.4 TH/MM3 Lymphocytes # (Auto) 1.6 TH/MM3 Monocytes # (Auto) 1.0 TH/MM3 Eosinophils # (Auto) 0.4 TH/MM3 Basophils # (Auto) 0.1 TH/MM3 CBC Comment DIFF FINAL Differential Comment Blood Urea Nitrogen 7 MG/DL Creatinine 0.48 MG/DL Random Glucose 100 MG/DL Total Protein 6.2 GM/DL Albumin 2.6 GM/DL Calcium Level 8.6 MG/DL Alkaline Phosphatase 214 U/L Aspartate Amino Transf (AST/SGOT) 40 U/L Alanine Aminotransferase (ALT/SGPT) 29 U/L Total Bilirubin 0.3 MG/DL Sodium Level 143 MEQ/L Potassium Level 4.0 MEQ/L Chloride Level 105 MEQ/L Carbon Dioxide Level 29.1 MEQ/L Anion Gap 9 MEQ/L Estimat Glomerular Filtration Rate 127 ML/MIN Iron Level 23 MCG/DL Total Iron Binding Capacity 270 MCG/DL Percent Iron Saturation 8.5 % Ferritin 244 NG/ML Carcinoembryonic Antigen 2306.7 NG/ML Administered Medications Medications (Trade) Dose Ordered Sig/[place]ndina Route PRN Reason Start Time Stop Time Status Last Admin Dose Admin Sodium Chloride (NS Flush) 2 ml UNSCH PRN IV FLUSH FLUSH AFTER USING IV ACCESS 02/17/18 20:45 02/18/18 04:46 Sodium Chloride (NS Flush) 2 ml BID IV FLUSH 02/17/18 21:00 02/18/18 21:20 Gabapentin (Neurontin) 600 mg HS PO 02/17/18 23:30 02/18/18 20:55 Levothyroxine Sodium (Synthroid) 100 mcg DAILY@0700 PO 02/18/18 07:00 02/19/18 07:42 Trazodone HCl (Desyrel) 75 mg HS PO 02/17/18 23:30 02/18/18 20:55 Bisacodyl (Dulcolax Supp) 10 mg DAILY PRN RECTAL SEVERE CONSITIPATION 02/18/18 11:00 02/18/18 11:30 Fluticasone Propionate (Flonase Andrea Spr) 1 spray HS EACH NARE 02/18/18 21:00 02/18/18 21:00 Objective Remarks GENERAL: Middle aged female, lying in bed resting. SKIN: Warm and dry. HEAD: Normocephalic. EYES: No injection or drainage. NECK: Supple, trachea midline. CARDIOVASCULAR: Regular rate and rhythm RESPIRATORY: Breath sounds equal bilaterally. No accessory muscle use. GASTROINTESTINAL: Abdomen mildly distended, ttp RUQ EXTREMITIES: No cyanosis, or edema. MUSCULOSKELETAL: Adequate muscle tone. NEUROLOGICAL: awake and alert. normal speech. moving extremities. Assessment/Plan Problem List: (1) Colonic mass ICD Codes: K63.9 - Disease of intestine, unspecified Status: Acute Plan: 02/19: plan for colonoscopy today. will also consult invasive radiology for port placement. IUR=[id number]-->most likely this is colon cancer unless proven otherwise. face sheet faxed to new patient referrals for follow up in 1-2 weeks. (2) Hepatic metastasis ICD Codes: C78.7 - Secondary malignant neoplasm of liver and intrahepatic bile duct Status: Acute Assessment 72y/o female with colon mass and liver lesions, likely colon cancer. Attending Statement The exam, history, and the medical decision-making described in the above note were completed with the assistance of the mid-level provider. I reviewed and agree with the findings presented. I attest that I had a [id number] encounter with the patient on the same day, and personally performed and documented my assessment and findings in the medical record. Anxious for colonoscopy today. CEA 2,300 . This is c/w mets colon ca. will start chemo if does need surgery now. Becky Garcia Feb 19, 2018 09:21 Lele Craven MD Feb 19, 2018 16:48
--- NOTE | 2018-02-19 09:56 | HHI.PR ---
Subjective Remarks Ms. Jeffery is a 72 y/o female who recently had positive preoperative fecal occult blood testing resulting in gastroenterology referral with planned colonoscopy in the near future who presented to the emergency room on 02/17/2018 complaining of progressively worsening abdominal pain. Abdomen/pelvis CT showed 4.4 cm colonic mass at splenic flexure and numerous hepatic metastases. The patient is admitted to [facility] for further evaluation and management. Patient is seen in her hospital room. She reports that she has been having abdominal bloating and feeling "gassy" for about a month. Approximately 1 week ago, she developed severe RUQ abdominal pain. A few days ago, she started to note that her pain was significantly exacerbated by deep breathing. The pain is intermittent. She states it became so severe that she had to go to the ER. Her pain has been successfully relieved by IV Morphine. Last BM was medium sized and occurred 02/16/18. She denies hematochezia or tarry stools. 4-3 Mild RUQ abdominal pain. Requesting a suppository which she normally takes at home and helps relieve her pain. 4-4 PATIENT IS SCHEDULED TO HAVE COLONOSCOPY TODAY DW RN AND PT HAVING BLOOD PRESSURE ISSUES ADD CLONIDINE DW RN AND CM AND PT Objective Vitals Vital Signs Date Time Temp Pulse Resp B/P (MAP) Pulse Ox O2 Delivery O2 Flow Rate FiO2 02/19/18 04:09 99.0 80 16 141/74 (96) 93 02/18/18 23:53 98.8 68 18 150/91 (110) 95 02/18/18 19:29 98.1 76 18 170/92 (118) 97 02/18/18 16:00 98.2 84 20 176/95 (122) 95 02/18/18 12:00 98.3 80 20 157/91 (113) 96 02/18/18 10:35 83 I/O 02/18/18 02/18/18 02/18/18 02/19/18 02/19/18 02/19/18 07:00 15:00 23:00 07:00 15:00 23:00 Intake Total 760 ml 840 ml Output Total 200 ml 300 ml 1175 ml Balance 560 ml -300 ml 840 ml -1175 ml Intake Oral 60 ml 840 ml IV Total 700 ml Output Urine Total 200 ml 300 ml 1175 ml # Voids 4 # Bowel Movements 1 2 Result Diagram: 4/4/18 0617 02/19/18 0617 Other Results Laboratory Tests Test 02/17/18 17:00 02/17/18 20:09 02/19/18 06:17 White Blood Count 9.3 TH/MM3 7.4 TH/MM3 Red Blood Count 4.24 MIL/MM3 4.43 MIL/MM3 Hemoglobin 11.3 GM/DL 11.6 GM/DL Hematocrit 34.1 % 35.4 % Mean Corpuscular Volume 80.3 FL 79.9 FL Mean Corpuscular Hemoglobin 26.7 PG 26.1 PG Mean Corpuscular Hemoglobin Concent 33.2 % 32.7 % Red Cell Distribution Width 15.1 % 15.6 % Platelet Count 313 TH/MM3 351 TH/MM3 Mean Platelet Volume 8.1 FL 7.5 FL Neutrophils (%) (Auto) 66.2 % 58.9 % Lymphocytes (%) (Auto) 17.8 % 21.2 % Monocytes (%) (Auto) 11.5 % 13.5 % Eosinophils (%) (Auto) 3.8 % 5.2 % Basophils (%) (Auto) 0.7 % 1.2 % Neutrophils # (Auto) 6.0 TH/MM3 4.4 TH/MM3 Lymphocytes # (Auto) 1.7 TH/MM3 1.6 TH/MM3 Monocytes # (Auto) 1.1 TH/MM3 1.0 TH/MM3 Eosinophils # (Auto) 0.4 TH/MM3 0.4 TH/MM3 Basophils # (Auto) 0.1 TH/MM3 0.1 TH/MM3 CBC Comment DIFF FINAL DIFF FINAL Differential Comment Blood Urea Nitrogen 11 MG/DL 7 MG/DL Creatinine 0.60 MG/DL 0.48 MG/DL Random Glucose 118 MG/DL 100 MG/DL Total Protein 6.5 GM/DL 6.2 GM/DL Albumin 2.7 GM/DL 2.6 GM/DL Calcium Level 8.8 MG/DL 8.6 MG/DL Alkaline Phosphatase 204 U/L 214 U/L Aspartate Amino Transf (AST/SGOT) 41 U/L 40 U/L Alanine Aminotransferase (ALT/SGPT) 30 U/L 29 U/L Total Bilirubin 0.2 MG/DL 0.3 MG/DL Sodium Level 134 MEQ/L 143 MEQ/L Potassium Level 4.0 MEQ/L 4.0 MEQ/L Chloride Level 97 MEQ/L 105 MEQ/L Carbon Dioxide Level 31.4 MEQ/L 29.1 MEQ/L Anion Gap 6 MEQ/L 9 MEQ/L Estimat Glomerular Filtration Rate 98 ML/MIN 127 ML/MIN Lactic Acid Level 0.9 mmol/L Lipase 121 U/L Urine Color YELLOW Urine Turbidity CLEAR Urine pH 6.5 Urine Specific [place] LESS/EQUAL 1.005 Urine Protein NEG mg/dL Urine Glucose (UA) NEG mg/dL Urine Ketones NEG mg/dL Urine Occult Blood NEG Urine Nitrite NEG Urine Bilirubin NEG Urine Urobilinogen 0.2 MG/DL Urine Leukocyte Esterase NEG Urine RBC 0-3 /hpf Urine WBC 3-5 /hpf Urine Squamous Epithelial Cells 0-5 /hpf Urine Bacteria FEW /hpf Microscopic Urinalysis Comment CULT NOT INDICATED Iron Level 23 MCG/DL Total Iron Binding Capacity 270 MCG/DL Percent Iron Saturation 8.5 % Ferritin 244 NG/ML Carcinoembryonic Antigen 2306.7 NG/ML Imaging Last Impressions Gall Bladder Ultrasound 02/17/18 0000 Signed Impressions: Service Date/Time: Saturday, February 17, 2018 18:03 - CONCLUSION: 1. Multiple masses in the liver measuring up to 7.9 cm. 2. Contracted gallbladder; no shadowing stone seen. Sebastien Solomon MD Abdomen/Pelvis CT 02/17/18 0000 Signed Impressions: Service Date/Time: Saturday, February 17, 2018 19:31 - CONCLUSION: 4.4 cm colonic mass at the splenic flexure with numerous hepatic metastases measuring up to about 11 cm in diameter. Miko Lopes MD Objective Remarks GENERAL: AWAKE AND ALERT AND ORIENTED X3 TALKATIVE AND COOPERATIVE SKIN: Warm and dry. HEAD: Atraumatic. Normocephalic. EYES: Pupils equal and round. No scleral icterus. No injection or drainage. EOMI ENT: No nasal bleeding or discharge. Mucous membranes pink and moist. TONGUE MIDLINE NECK: Trachea midline. No JVD. SUPPLE CARDIOVASCULAR: Regular rate and rhythm. S1, S2 NO S3 OR S4 RESPIRATORY: No accessory muscle use. Clear to auscultation. Breath sounds equal bilaterally. GASTROINTESTINAL: Abdomen soft, non-tender, nondistended. Hepatic and splenic margins not palpable. MUSCULOSKELETAL: Extremities without clubbing, cyanosis, or edema. No obvious deformities. NEUROLOGICAL: Awake and alert. No obvious cranial nerve deficits. Motor grossly within normal limits. Five out of 5 muscle strength in the arms and legs. Normal speech. PSYCHIATRIC: Appropriate mood and affect; insight and judgment normal. Medications and IVs Current Medications Sodium Chloride 1,000 ml @ 125 mls/hr Q8H IV Last administered on 02/17/18at 17: 13; Start 02/17/18 at 16:52; Stop 02/18/18 at 00:51; Status DC Sodium Chloride (NS Flush) 2 ml UNSCH PRN IV FLUSH FLUSH AFTER USING IV ACCESS ; Start 02/17/18 at 17:00; Stop 02/17/18 at 21:37; Status DC Iohexol (Omnipaque 350 Inj) 95 ml STK-MED ONCE IVCONTRAST Last administered on 02/17/18at 19:39; Start 02/17/18 at 19:39; Stop 02/17/18 at 19:40; Status DC Sodium Chloride (NS Flush) 2 ml UNSCH PRN IV FLUSH FLUSH AFTER USING IV ACCESS Last administered on 02/18/18at 04:46; Start 02/17/18 at 20:45 Sodium Chloride (NS Flush) 2 ml BID IV FLUSH Last administered on 02/18/18at 21: 20; Start 02/17/18 at 21:00 Prochlorperazine (Compazine Supp) 25 mg Q12H PRN RECTAL NAUSEA OR VOMITING; Start 02/17/18 at 20:45 Naloxone HCl (Narcan Inj) 0.4 mg UNSCH PRN IV PUSH SEE LABEL COMMENTS; Start at 20:45 Acetaminophen (Tylenol Supp) 650 mg Q4H PRN RECTAL fever > 100.4; Start at 20:45 Morphine Sulfate (Morphine Inj) 2 mg Q3H PRN IV PUSH pain > 4 Last administered on 02/17/18at 21:57; Start 02/17/18 at 20:45; Stop 02/18/18 at 11:39; Status DC Gabapentin (Neurontin) 600 mg HS PO Last administered on 02/18/18at 20:55; Start 02/17/18 at 23:30 Levothyroxine Sodium (Synthroid) 100 mcg DAILY@0700 PO Last administered on 02/19at 07:42; Start 02/18/18 at 07:00 Fluticasone Propionate (Flonase Andrea Spr) 1 spray BID EACH NARE Last administered on 02/18/18at 08:19; Start 02/17/18 at 23:30; Stop 02/18/18 at 10:52; Status DC Sertraline HCl (Zoloft) 25 mg DAILY PO Last administered on 02/18/18at 08:19; Start 02/18/18 at 09:00; Stop 02/18/18 at 10:52; Status DC Trazodone HCl (Desyrel) 75 mg HS PO Last administered on 02/18/18at 20:55; Start 02/17/18 at 23:30 Pneumococcal Polyvalent Vaccine (Pneumovax-23 Inj) 25 mcg ONCE ONCE IM ; Start 02/18/18 at 09:00; Stop 02/18/18 at 09:01; Status DC Influenza Virus Vaccine (Flu (Quadrivalent) Vaccine Inj) 0.5 ml ONCE ONCE IM ; Start 02/18/18 at 09:00; Stop 02/18/18 at 09:01; Status DC Magnesium Hydroxide (Milk Of Magnesia Liq) 30 ml Q12H PRN PO Mild constipation ; Start 02/18/18 at 11:00 Sennosides (Senokot) 17.2 mg Q12H PRN PO Moderate constipation; Start 02/18/18 at 11:00 Bisacodyl (Dulcolax Supp) 10 mg DAILY PRN RECTAL SEVERE CONSITIPATION Last administered on 02/18/18at 11:30; Start 02/18/18 at 11:00 Lactulose (Lactulose Liq) 30 ml DAILY PRN PO SEVERE CONSITIPATION; Start at 11:00 Fluticasone Propionate (Flonase Andrea Spr) 1 spray HS EACH NARE Last administered on 02/18/18at 21:00; Start 02/18/18 at 21:00 Sertraline HCl (Zoloft) 100 mg DAILY PO ; Start 02/19/18 at 09:00 Miscellaneous (Pill Splitter) 1 ea UNSCH PRN OTHER SEE LABEL COMMENTS; Start at 11:30 Acetaminophen/ Hydrocodone Bitart (Winters 5-325 Mg) 1 tab Q6H PRN PO PAIN SCALE 1 TO 10; Start 02/18/18 at 11:45 Hydrochlorothiazide (Hydrodiuril) 25 mg ONCE ONCE PO Last administered on at 20:55; Start 02/18/18 at 20:15; Stop 02/18/18 at 20:19; Status DC Magnesium Citrate (Citroma Liq) 150 ml NOW ONCE PO Last administered on at 21:33; Start 02/18/18 at 21:30; Stop 02/18/18 at 21:31; Status DC Magnesium Citrate (Citroma Liq) 150 ml ONCE PRN PO SEE LABEL COMMENTS Last administered on 02/19/18at 01:34; Start 02/19/18 at 01:30; Stop 02/19/18 at 04:00; Status DC Lactated Ringer's 1,000 ml @ 30 mls/hr Q24H PRN IV SEE LABEL COMMENTS; Start at 02:15; Stop 02/22/18 at 02:14 Sodium Chloride 500 ml @ 30 mls/hr [id number] PRN IV SEE LABEL COMMENTS; Start 02/19/18 at 02:15; Stop 02/22/18 at 02:14 Metoprolol Tartrate (Lopressor) 25 mg ROOMS DIRECTOR PRN PO SEE LABEL COMMENTS; Start 02/19/18 at 02:15; Stop 02/22/18 at 02:14 Povidone Iodine (Betadine 5% Antisepsis Kit) 1 applic ROOMS DIRECTOR PRN EACH NARE SEE LABEL COMMENTS; Start 02/19/18 at 02:15; Stop 02/22/18 at 02:14 Chlorhexidine Gluconate (Chlorhexidine 2% Cloth) 3 pack ROOMS DIRECTOR PRN TOPICAL SEE LABEL COMMENTS; Start 02/19/18 at 02:15; Stop 02/22/18 at 02:14 A/P Problem List: (1) Colonic mass ICD Code: K63.9 - Disease of intestine, unspecified Status: Acute (2) Intussusception of large intestine ICD Code: K56.1 - Intussusception Status: Acute (3) Hepatic metastasis ICD Code: C78.7 - Secondary malignant neoplasm of liver and intrahepatic bile duct Status: Acute Assessment and Plan 72 y/o female who recently had positive preoperative fecal occult blood testing resulting in gastroenterology referral with planned colonoscopy in the near future who presented to the emergency room on 02/17/2018 complaining of progressively worsening abdominal pain. Abdomen/pelvis CT showed 4.4 cm colonic mass at splenic flexure and numerous hepatic metastases. The patient is admitted to [facility] for further evaluation and management. COLONOSCOPY 4-4 Colon Mass with partial intussusception and hepatic metastases -Abdomen/pelvis CT showed 4.4 cm colonic mass at splenic flexure which also appears to be associated with partial intussusception with numerous hepatic metastases -Dr. Glasgow, colorectal surgeon consulted -Medical oncology consulted - Continue with pain control as needed. Start clear liquid diet. COLONOSCOPY 4-4 Hypothyroidism -Continue home medications Depression -Continue home Desyrel and Zoloft Hyponatremia, mild -Sodium 134 on admission -Patient received normal saline at 125 cc/h 1 bag -has history of CHF of uncertain etiology -She refused lab today. Mild anemia likely secondary to slow GI bleed due to colon mass -Patient has a history of positive fecal occult blood testing -Follow CBC. Patient aware of the importance of getting lab work done. COLONOSCOPY 4-4 HYPERTENSION- HOME MEDS AND PRNS DVT prophylaxis -SCDs/teds Discharge Planning PENDING ONCOLOGY AND SURGICAL CLEARANCE Mikey Rosales DO Feb 19, 2018 09:56
[2018-02-19] MEDS ORDERED: cloNIDine HCL 0.1 MG TAB PO PRN (10:00)
[2018-02-19] MEDS ORDERED: HYDROCHLOROTHIAZIDE 25 MG TAB PO PRN (10:00)
--- NOTE | 2018-02-19 10:22 | MB ---
cc: Jaiden Craven MD DATE: 02/18/2018 REASON FOR CONSULTATION: Consult requested by hospitalist for evaluation of a colonic mass and multiple liver masses, highly suspicious for colon cancer with metastasis. HISTORY OF PRESENT ILLNESS: Annette is a 72-year-old female. Recently, she had a preoperative blood test for cataract surgery. The blood tests showed that she has anemia. Stool occult blood was done, which came back positive. The patient was referred to operating room rn about 2 weeks ago . The patient could not recall the name of the operating room rn, but she said that it was advanced gastroenterology . She mention that she has been scheduled to have a colonoscopy and upper endoscopy either this week or next week. The patient was doing fine up until about a week ago, she started having right upper quadrant pain. This was not related to food. The pain did not improve or get worse with the bowel movements. In the last 2 days, her pain was getting worse and she decided to come to the emergency room yesterday. The patient came to [facility] last evening. She underwent gallbladder ultrasound, which showed multiple masses in the liver measuring up to 7.9 cm. The gallbladder was contracted. No gall stones seen. Subsequently, she had a CAT scan of the abdomen and pelvis, which showed a 4.4 cm colonic mass at the splenic flexure with numerous hepatic metastases measuring up to about 11 cm in diameter. The radiologist mentioned that the patient has a colonic mass at the splenic flexure, which also appears to be associated with a partial intussusception. The ER physician had contacted Dr. Glasgow last evening. The patient is now transferred to [facility] for further evaluation. I have been asked to see the patient as well. Patient never had a colonoscopy before. She denies any blood in the stool. She has been complaining of right-sided abdominal pain. She denies any nausea, vomiting, diarrhea or constipation. She does not have any clinical evidence of bowel obstruction. Her belly is soft and it is not distended. She denies any anorexia or weight loss. REVIEW OF SYSTEMS: The rest of the review of systems is negative. PAST MEDICAL HISTORY: Hypothyroidism, depression, cataract. PAST SURGICAL HISTORY: Tonsillectomy, hysterectomy, foot surgery. ALLERGIES: PENICILLIN AND NSAIDS. MEDICATIONS PRIOR TO COMING TO THE HOSPITAL: Flonase, trazodone, tramadol, hydrochlorothiazide, gabapentin, Zoloft, Synthroid. FAMILY HISTORY: Significant for colorectal cancer. SOCIAL HISTORY: The patient used to smoke cigarettes, but now smokes only socially. She occasionally drinks alcohol. PHYSICAL EXAMINATION: GENERAL: This is a well developed, well nourished elderly white female in no apparent distress. VITAL SIGNS: Temperature 98.3, heart rate is 86, blood pressure 147/88, O2 saturation 92%. HEENT: PERRLA. EOMI, anicteric. No oral lesions noted. NECK: No lymphadenopathy noted. LUNGS: Clear. No wheezing, rhonchi or rales. HEART: Regular rate and rhythm. ABDOMEN: Soft. Tenderness noted in the right upper quadrant. Bowel sounds are present and they are not hyperactive. EXTREMITIES: No pedal edema. NEUROLOGIC: Awake, alert, oriented x 3. SKIN: No significant lesions are noted. ASSESSMENT: 1. A 4.4 cm colonic mass at the splenic flexure with a partial intussusception and multiple liver masses. This is clinically consistent with colon cancer with extensive liver metastasis until proven otherwise. 2. Anemia, most likely due to gastrointestinal bleeding from colon cancer. PLAN: I have reviewed her available records and I had an extensive discussion with the patient regarding my clinical suspicion for colon cancer with extensive liver metastasis. This was discussed in the presence of the patient's RN. She clinically does not have any signs and symptoms of bowel obstruction. Dr. Glasgow has been consulted. The patient is n.p.o. and it is expected that Dr. Glasgow will probably do colonoscopy today. If the colonoscopy showed that the colonic mass is not obstructive, then my recommendation is to start palliative chemotherapy with Avastin and FOLFOX if the biopsy confirmed colon cancer. However, if the patient has a large tumor with near bowel obstruction, then my recommendation is for surgery followed by chemotherapy. The patient is anxiously waiting to discuss with Dr. Glasgow regarding the surgery and/or colonoscopy. I will check the CEA level and also order the iron studies to evaluate for the anemia. Further recommendations based on her hospital stay. Thank you for asking my opinion. MD WAGNER Stiles/SABINA , 11:08 PM , 11:45 PM ANA
[2018-02-19] MEDS ORDERED: VANCOMYCIN INJ 1,000 MG in SODIUM CHLOR 0.9% 250 ML INJ 250 ML IV SCH (11:00)
--- NOTE | 2018-02-19 13:11 | EKG ---
Date Performed: 02/19/2018 Time Performed: 00:17:12 PTAGE: 72 years EKG: Sinus rhythm Normal ECG PREVIOUS TRACING : 02/09/2013 06.41 DOCTOR: Jeff Quinones Interpretating Date/Time 02/19/2018 13:08:10
[2018-02-19 13:18] LABS: INTERNATIONAL NORMALIZED RATIO 1.2 RATIO; PROTHROMBIN TIME - PATIENT 11.7 SEC (9.8-11.6)
[2018-02-19] MEDS ORDERED: fentaNYL CITRATE 250 MCG/5 ML AMP ONE (15:05)
[2018-02-19] MEDS ORDERED: MIDAZOLAM HCL 5 MG/5 ML VIAL ONE (15:05)
[2018-02-19] MEDS ORDERED: SODIUM CHLOR 0.9% 250 ML INJ 250 ML ONE (15:23)
[2018-02-19] MEDS ORDERED: VANCOMYCIN HCL 1000 MG VIAL ONE (15:23)
[2018-02-19] MEDS ORDERED: LIDOCAINE HCL 1% PF 5 ML SYRINGE OTHER ONE (15:34)
[2018-02-19] MEDS ORDERED: PROPOFOL 200 MG/20 ML AMP IV ONE (15:34)
[2018-02-19] MEDS ORDERED: LIDOCAINE 1%/EPINEPHrine 1:100,000 SOLN 30 ML VIAL ONE (15:48)
--- NOTE | 2018-02-19 16:25 | PD.RAD ---
Post Procedure Progress Note Pre Procedure Diagnosis: (1) Colonic mass (2) Hepatic metastasis Post Procedure Diagnosis: (1) Colonic mass (2) Hepatic metastasis Procedure Date: Feb 19, 2018 Supervising Radiologist: Thomas Tong Estimated blood loss: 3cc Anesthesia: Local, Conscious Sedation Plan of Activity Patient to Unit: ROPU Patient Condition: Good Additional Comments: Port placed via the right Ij catheter in good position OK for use Full dictated report to follow See PACS Report for procedural detail/treatment Thomas Tong MD Feb 19, 2018 16:25
[2018-02-19] MEDS ORDERED: SODIUM CHLORIDE 0.9% FLUSH 10 ML FLUSH IVF PRN (16:30)
--- NOTE | 2018-02-19 17:52 | RADRPT ---
EXAM DATE/TIME: 02/19/2018 15:23 [facility] COMPARISON: CT ABDOMEN & PELVIS W CONTRAST, February 17, 2018, 19:31. INDICATIONS : Patient with recently diagnosed Colon cancer. Needs port for chemotherapy. MEDICAL HISTORY : 1. Hypothyroidism 2. hearing impaired lt side 3. CHF 4. cataracts SURGICAL HISTORY : 1. Tonsillectomy 2. Hysterectomy 3, lt ulnar transpostion surgery 4. Bilateral feet hammertoe repair 5. Lt radius fracture repair ENCOUNTER: Initial ACUITY: 1 month PAIN SCORE: 2/10 LOCATION: abdomin FLUORO TIME: 0.6 minutes IMAGE SERIES: 1 SEDATION TIME: 30 minutes ACCESS: Right internal jugular vein SEDATION: 1.) 5 mg midazolam (Versed) IV 2.) 250 mcg fentanyl (Sublimaze) IV Vancomycin within 2 hours of procedure, Ancef (or alternative) within 1 hour of procedure. DEVICE: 1. 8 Greek single lumen BioFlo Port PROCEDURE : 1. Continuous pulse oximetry and EKG monitoring. 2. Intravenous conscious sedation. 3. Ultrasound guidance for venous access. 4. Fluoroscopic guided implantable central venous port placement. The patient was placed supine. The neck was prepped in sterile fashion. Full sterile technique was u sed, including cap, mask, sterile gloves and gown, and a large sterile sheet. Hand hygiene and 2% ch lorhexidine Betadine was utilized per protocol for cutaneous antisepsis with appropriate dry time for site. Sterile gel and sterile probe cover were utilized for ultrasound guidance. The skin and sub cutaneous tissues were infiltrated with local anesthetic solution. Under direct ultrasound guidance, central venous access was accomplished in the targeted vessel. The ultrasound images depicting access guidance were stored and saved to PACS for permanent record. A s ubcutaneous pocket was created using blunt dissection. The port was introduced to the pocket. The c atheter tubing was fed through a subcutaneous tunnel to the venotomy site. The catheter tubing was c ut to a suitable length and then was introduced through a valved Peel-Away sheath and positioned with catheter tubing tip at the cavo-atrial junction level. The pocket incision was closed with subcutic ular Vicryl suture. Steri-Strips were applied. The port was flushed and locked with heparin solutio n per protocol. Sterile dressing was applied to the site. The patient tolerated the procedure well. Conscious sedation was performed with the prescribed dosages and duration as above in the presence of an independent trained radiology nurse to assist in the monitoring of the patient. EKG and oximetry remained stable throughout the procedure. The patient tolerated the procedure well and there were no complications. The patient was sent to post anesthesia recovery in stable condition. CONCLUSION: Uncomplicated ultrasound and fluoroscopic guided implanted central venous port catheter placement as described in detail above. An 8 Greek Power port was placed. Thomas Tong MD on February 19, 2018 at 17:49 Board Certified Radiologist. This report was verified electronically.
[2018-02-19] MEDS: SERTRALINE HCL 50 MG TAB PO SCH (18:34)
[2018-02-19] MEDS: FLUTICASONE PROPIONATE 50 MCG/ACT 16 GM NASAL SPRAY EACH NARE SCH (21:00)
[2018-02-19] MEDS: GABAPENTIN 300 MG CAP PO SCH (21:31)
[2018-02-19] MEDS: traZODone HCL 50 MG TAB PO SCH (21:31)
[2018-02-20] VITALS: BP 108/65; PULSE 74; RESP 18; TEMP 98.3; O2SAT 94
[2018-02-20 04:43] VITALS: BP 121/64; PULSE 76; RESP 20; TEMP 99; O2SAT 94
[2018-02-20 05:32] LABS: AUTOMATED NEUTROPHIL # 4.8 TH/MM3 (1.8-7.7); BASOPHIL % 0.6 % (0.0-2.0); EOSINOPHIL # 0.5 TH/MM3 (0-0.4); EOSINOPHIL % 6.1 % (0.0-4.0); HEMATOCRIT 32.4 % (35.0-46.0); HEMOGLOBIN 10.7 GM/DL (11.6-15.3); LYMPH % 21.7 % (9.0-44.0); LYMPHOCYTE # 1.7 TH/MM3 (1.0-4.8); MEAN CELL VOLUME 80.6 FL (80.0-100.0); MEAN CORPUSCULAR HEMOGLOBIN 26.6 PG (27.0-34.0); MEAN PLATELET VOLUME 7.7 FL (7.0-11.0); MONO % 11.5 % (0.0-8.0); MONOCYTE # 0.9 TH/MM3 (0-0.9); NEUT % 60.1 % (16.0-70.0); PLATELET COUNT 323 TH/MM3 (150-450); RED BLOOD COUNT 4.02 MIL/MM3 (4.00-5.30); RED CELL DISTRIBUTION WIDTH 15.1 % (11.6-17.2); WHITE BLOOD COUNT 7.9 TH/MM3 (4.0-11.0)
[2018-02-20 06:05] LABS: ALBUMIN 2.2 GM/DL (3.4-5.0); ALT (GPT) 27 U/L (10-53); AST (GOT) 40 U/L (15-37); BICARBONATE 30.1 MEQ/L (21.0-32.0); BLOOD UREA NITROGEN 9 MG/DL (7-18); CALCIUM 8.1 MG/DL (8.5-10.1); CHLORIDE 106 MEQ/L (98-107); CREATININE 0.58 MG/DL (0.50-1.00); GLOMERULAR FILTRATION RATE 102 ML/MIN (>89); GLUCOSE,RANDOM 129 MG/DL (74-106); MAGNESIUM 2.3 MG/DL (1.5-2.5); SODIUM (NA) 143 MEQ/L (136-145)
[2018-02-20 06:14] LABS: ALKALINE PHOSPHATASE 213 U/L (45-117); FREE T4 1.27 NG/DL (0.76-1.46); PHOSPHORUS 3.6 MG/DL (2.5-4.9); TOTAL BILIRUBIN ADULT 0.2 MG/DL (0.2-1.0); TOTAL PROTEIN 5.4 GM/DL (6.4-8.2)
[2018-02-20] MEDS: LEVOTHYROXINE SODIUM 100 MCG TAB PO SCH (06:35)
[2018-02-20 08:14] VITALS: BP 131/75; PULSE 74; RESP 20; TEMP 98.1; O2SAT 96
[2018-02-20 08:15] VITALS: BP 131/75; PULSE 74; RESP 20; TEMP 98.1
[2018-02-20] MEDS: SERTRALINE HCL 50 MG TAB PO SCH (08:23)
[2018-02-20] MEDS: SODIUM CHLORIDE 0.9% FLUSH 10 ML FLUSH IV FLUSH SCH (08:24)
--- NOTE | 2018-02-20 08:37 | MR ---
cc: Faizan Glasgow MD DATE: 02/19/2018 PREOPERATIVE DIAGNOSES: 1. Multiple liver masses. 2. Abnormal splenic flexure, possible colon cancer. PROCEDURE PERFORMED: Limited colonoscopy. POSTOPERATIVE DIAGNOSES: 1. 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 2. Several polyps of the descending colon. 3. Diverticulosis of rectosigmoid, left colon. SURGEON: Faizan Glasgow MD DESCRIPTION OF PROCEDURE: The patient was placed in the left lateral decubitus position. After adequate anesthesia, sedation, rectal exam confirmed the impedance of the rectal vault. The Olympus colonoscope was then introduced into the rectum and advanced easily under direct vision into the proximal colon, getting to about the distal transverse colon, at which point, an obstructing carcinoma was seen. The lumen was not obvious and appeared to be quite narrow. Proximal advancement of the scope was not possible. Several biopsies of the tumor were obtained. Scope was then gradually withdrawn, noting some 1-1.5 cm polyps in the descending colon. They did not appear to be bleeding and were nonobstructing. The colon distally had quite a bit of diverticulosis, but no signs of any acute inflammation. No mucosal inflammation and no narrowing. The patient tolerated the procedure quite well and was brought to the recovery room in stable condition. Faizan Glasgow MD [facility]/ , 11:06 PM , 11:34 PM
--- NOTE | 2018-02-20 09:26 | PD.ONC.PN ---
Subjective Subjective Remarks Afebrile overnight. Patient resting in bed in nad. No complaints. daughter at bedside with multiple questions about treatment plans. tolerating a regular diet. Objective Data Date Time Temp Pulse Resp B/P (MAP) Pulse Ox O2 Delivery O2 Flow Rate FiO2 02/20/18 08:15 98.1 74 20 131/75 (93) 02/20/18 04:43 99.0 76 20 121/64 (83) 94 02/20/18 00:00 98.3 74 18 108/65 (79) 94 02/19/18 21:19 98.7 75 18 130/71 (90) 94 02/19/18 18:15 Automatic Cuff 02/19/18 18:14 98.3 84 20 165/94 (117) 94 02/19/18 17:09 68 17 158/89 (112) 96 02/19/18 16:39 97.6 75 18 155/97 (116) 94 02/19/18 12:20 97.8 81 18 129/77 (94) 95 02/19/18 11:02 96.9 58 16 123/68 (86) 98 Result Diagram: 02/20/18 0445 02/20/18 0445 Laboratory Results Laboratory Tests Test 02/19/18 12:37 02/20/18 04:45 Prothrombin Time 11.7 SEC Prothromb Time International Ratio 1.2 RATIO Activated Partial Thromboplast Time 21.0 SEC White Blood Count 7.9 TH/MM3 Red Blood Count 4.02 MIL/MM3 Hemoglobin 10.7 GM/DL Hematocrit 32.4 % Mean Corpuscular Volume 80.6 FL Mean Corpuscular Hemoglobin 26.6 PG Mean Corpuscular Hemoglobin Concent 33.0 % Red Cell Distribution Width 15.1 % Platelet Count 323 TH/MM3 Mean Platelet Volume 7.7 FL Neutrophils (%) (Auto) 60.1 % Lymphocytes (%) (Auto) 21.7 % Monocytes (%) (Auto) 11.5 % Eosinophils (%) (Auto) 6.1 % Basophils (%) (Auto) 0.6 % Neutrophils # (Auto) 4.8 TH/MM3 Lymphocytes # (Auto) 1.7 TH/MM3 Monocytes # (Auto) 0.9 TH/MM3 Eosinophils # (Auto) 0.5 TH/MM3 Basophils # (Auto) 0.0 TH/MM3 CBC Comment DIFF FINAL Differential Comment Blood Urea Nitrogen 9 MG/DL Creatinine 0.58 MG/DL Random Glucose 129 MG/DL Total Protein 5.4 GM/DL Albumin 2.2 GM/DL Calcium Level 8.1 MG/DL Phosphorus Level 3.6 MG/DL Magnesium Level 2.3 MG/DL Alkaline Phosphatase 213 U/L Aspartate Amino Transf (AST/SGOT) 40 U/L Alanine Aminotransferase (ALT/SGPT) 27 U/L Total Bilirubin 0.2 MG/DL Sodium Level 143 MEQ/L Potassium Level 3.9 MEQ/L Chloride Level 106 MEQ/L Carbon Dioxide Level 30.1 MEQ/L Anion Gap 7 MEQ/L Estimat Glomerular Filtration Rate 102 ML/MIN Free Thyroxine 1.27 NG/DL Thyroid Stimulating Hormone 3rd Gen 0.526 uIU/ML Administered Medications Medications (Trade) Dose Ordered Sig/[place] Route PRN Reason Start Time Stop Time Status Last Admin Dose Admin Sodium Chloride (NS Flush) 2 ml UNSCH PRN IV FLUSH FLUSH AFTER USING IV ACCESS 02/17/18 20:45 02/18/18 04:46 Sodium Chloride (NS Flush) 2 ml BID IV FLUSH 02/17/18 21:00 02/20/18 08:24 Gabapentin (Neurontin) 600 mg HS PO 02/17/18 23:30 02/19/18 21:31 Levothyroxine Sodium (Synthroid) 100 mcg DAILY@0700 PO 02/18/18 07:00 02/20/18 06:35 Trazodone HCl (Desyrel) 75 mg HS PO 02/17/18 23:30 02/19/18 21:31 Bisacodyl (Dulcolax Supp) 10 mg DAILY PRN RECTAL SEVERE CONSITIPATION 02/18/18 11:00 02/18/18 11:30 Fluticasone Propionate (Flonase Andrea Spr) 1 spray HS EACH NARE 02/18/18 21:00 02/19/18 21:00 Sertraline HCl (Zoloft) 100 mg DAILY PO 02/19/18 09:00 02/20/18 08:23 Clonidine (Catapres) 0.1 mg Q4H PRN PO SBP>160, DBP>90 02/19/18 10:00 02/19/18 18:34 Vancomycin HCl 1000 mg/Sodium Chloride 250 ml @ 250 mls/hr FINANCIAL SALES ASSISTANT IV 02/19/18 11:00 02/22/18 10:59 02/19/18 13:47 Objective Remarks GENERAL: Middle aged female, supine in bed resting. SKIN: Warm and dry. port in place, right chest wall. HEAD: Normocephalic. EYES: No injection or drainage. NECK: Supple, trachea midline. CARDIOVASCULAR: Regular rate and rhythm RESPIRATORY: Breath sounds equal bilaterally. No accessory muscle use. GASTROINTESTINAL: Abdomen soft, non-tender. EXTREMITIES: No cyanosis, or edema. MUSCULOSKELETAL: Adequate muscle tone. NEUROLOGICAL: no focal deficit. Assessment/Plan Problem List: (1) Colonic mass ICD Codes: K63.9 - Disease of intestine, unspecified Status: Acute Plan: 02/20: patient clear for discharge from oncology perspective. follow up in clinic next week. --patient's colonoscopy report shows obstructing mass in the distal transverse splenic flexure --s/p colonoscopy on 02/19, pathology pending. IEO=[id number]-->most likely this is colon cancer unless proven otherwise. face sheet faxed to new patient referrals for follow up in 1-2 weeks. (2) Hepatic metastasis ICD Codes: C78.7 - Secondary malignant neoplasm of liver and intrahepatic bile duct Status: Acute Assessment 72y/o female with colon mass and liver lesions, likely colon cancer. Attending Statement LATE ENTRY: The exam, history, and the medical decision-making described in the above note were completed with the assistance of the mid-level provider. I reviewed and agree with the findings presented. I attest that I had a [id number] encounter with the patient on the same day, and personally performed and documented my assessment and findings in the medical record. No new c/o D/W Dr Glasgow about colonoscopy findings and need for surgery . He does not recommend surgery at this time. Will start chemo as outpt. Ok to d/c FU on saturday in the office. Becky Garica Feb 20, 2018 09:26 Lele Craven MD Feb 21, 2018 13:43
[2018-02-20] MEDS ORDERED: ACETAMINOPHEN 325 MG TAB PO ONE (10:00)
--- NOTE | 2018-02-20 10:41 | HHI.PR ---
Subjective Remarks Ms. Jeffery is a 72 y/o female who recently had positive preoperative fecal occult blood testing resulting in gastroenterology referral with planned colonoscopy in the near future who presented to the emergency room on 02/17/2018 complaining of progressively worsening abdominal pain. Abdomen/pelvis CT showed 4.4 cm colonic mass at splenic flexure and numerous hepatic metastases. The patient is admitted to [facility] for further evaluation and management. Patient is seen in her hospital room. She reports that she has been having abdominal bloating and feeling "gassy" for about a month. Approximately 1 week ago, she developed severe RUQ abdominal pain. A few days ago, she started to note that her pain was significantly exacerbated by deep breathing. The pain is intermittent. She states it became so severe that she had to go to the ER. Her pain has been successfully relieved by IV Morphine. Last BM was medium sized and occurred 02/16/18. She denies hematochezia or tarry stools. 4-3 Mild RUQ abdominal pain. Requesting a suppository which she normally takes at home and helps relieve her pain. 4-4 PATIENT IS SCHEDULED TO HAVE COLONOSCOPY TODAY DW RN AND PT HAVING BLOOD PRESSURE ISSUES ADD CLONIDINE DW RN AND CM AND PT 4-5 SP RIGHT IJ PORT ON 02-[address] RICHEY SHOWED Obstructing cancer of the distal transverse splenic flexure. WANTS TO GO HOME CLEARED BY ONCOLOGY CLEARED BY DR RICHEY WANTS TO GO HOME DC TO HOME TODAY Objective Vitals Vital Signs Date Time Temp Pulse Resp B/P (MAP) Pulse Ox O2 Delivery O2 Flow Rate FiO2 02/20/18 08:15 98.1 74 20 131/75 (93) 02/20/18 08:14 98.1 74 20 131/75 (93) 96 02/20/18 04:43 99.0 76 20 121/64 (83) 94 02/20/18 00:00 98.3 74 18 108/65 (79) 94 02/19/18 21:19 98.7 75 18 130/71 (90) 94 02/19/18 18:15 Automatic Cuff 02/19/18 18:14 98.3 84 20 165/94 (117) 94 02/19/18 17:09 68 17 158/89 (112) 96 02/19/18 16:39 97.6 75 18 155/97 (116) 94 02/19/18 12:20 97.8 81 18 129/77 (94) 95 02/19/18 11:02 96.9 58 16 123/68 (86) 98 I/O 02/19/18 02/19/18 02/19/18 02/20/18 02/20/18 02/20/18 07:00 15:00 23:00 07:00 15:00 23:00 Intake Total 200 ml 240 ml Output Total 1175 ml 200 ml Balance -1175 ml 200 ml 40 ml Intake Oral 240 ml Other 200 ml Output Urine Total 1175 ml 200 ml # Bowel Movements 2 Result Diagram: 02/20/18 0445 02/20/18 0445 Other Results Laboratory Tests Test 02/17/18 17:00 02/17/18 20:09 02/19/18 06:17 02/19/18 12:37 White Blood Count 9.3 TH/MM3 7.4 TH/MM3 Red Blood Count 4.24 MIL/MM3 4.43 MIL/MM3 Hemoglobin 11.3 GM/DL 11.6 GM/DL Hematocrit 34.1 % 35.4 % Mean Corpuscular Volume 80.3 FL 79.9 FL Mean Corpuscular Hemoglobin 26.7 PG 26.1 PG Mean Corpuscular Hemoglobin Concent 33.2 % 32.7 % Red Cell Distribution Width 15.1 % 15.6 % Platelet Count 313 TH/MM3 351 TH/MM3 Mean Platelet Volume 8.1 FL 7.5 FL Neutrophils (%) (Auto) 66.2 % 58.9 % Lymphocytes (%) (Auto) 17.8 % 21.2 % Monocytes (%) (Auto) 11.5 % 13.5 % Eosinophils (%) (Auto) 3.8 % 5.2 % Basophils (%) (Auto) 0.7 % 1.2 % Neutrophils # (Auto) 6.0 TH/MM3 4.4 TH/MM3 Lymphocytes # (Auto) 1.7 TH/MM3 1.6 TH/MM3 Monocytes # (Auto) 1.1 TH/MM3 1.0 TH/MM3 Eosinophils # (Auto) 0.4 TH/MM3 0.4 TH/MM3 Basophils # (Auto) 0.1 TH/MM3 0.1 TH/MM3 CBC Comment DIFF FINAL DIFF FINAL Differential Comment Blood Urea Nitrogen 11 MG/DL 7 MG/DL Creatinine 0.60 MG/DL 0.48 MG/DL Random Glucose 118 MG/DL 100 MG/DL Total Protein 6.5 GM/DL 6.2 GM/DL Albumin 2.7 GM/DL 2.6 GM/DL Calcium Level 8.8 MG/DL 8.6 MG/DL Alkaline Phosphatase 204 U/L 214 U/L Aspartate Amino Transf (AST/SGOT) 41 U/L 40 U/L Alanine Aminotransferase (ALT/SGPT) 30 U/L 29 U/L Total Bilirubin 0.2 MG/DL 0.3 MG/DL Sodium Level 134 MEQ/L 143 MEQ/L Potassium Level 4.0 MEQ/L 4.0 MEQ/L Chloride Level 97 MEQ/L 105 MEQ/L Carbon Dioxide Level 31.4 MEQ/L 29.1 MEQ/L Anion Gap 6 MEQ/L 9 MEQ/L Estimat Glomerular Filtration Rate 98 ML/MIN 127 ML/MIN Lactic Acid Level 0.9 mmol/L Lipase 121 U/L Urine Color YELLOW Urine Turbidity CLEAR Urine pH 6.5 Urine Specific [place] LESS/EQUAL 1.005 Urine Protein NEG mg/dL Urine Glucose (UA) NEG mg/dL Urine Ketones NEG mg/dL Urine Occult Blood NEG Urine Nitrite NEG Urine Bilirubin NEG Urine Urobilinogen 0.2 MG/DL Urine Leukocyte Esterase NEG Urine RBC 0-3 /hpf Urine WBC 3-5 /hpf Urine Squamous Epithelial Cells 0-5 /hpf Urine Bacteria FEW /hpf Microscopic Urinalysis Comment CULT NOT INDICATED Iron Level 23 MCG/DL Total Iron Binding Capacity 270 MCG/DL Percent Iron Saturation 8.5 % Ferritin 244 NG/ML Carcinoembryonic Antigen 2306.7 NG/ML Prothrombin Time 11.7 SEC Prothromb Time International Ratio 1.2 RATIO Activated Partial Thromboplast Time 21.0 SEC Test 02/20/18 04:45 White Blood Count 7.9 TH/MM3 Red Blood Count 4.02 MIL/MM3 Hemoglobin 10.7 GM/DL Hematocrit 32.4 % Mean Corpuscular Volume 80.6 FL Mean Corpuscular Hemoglobin 26.6 PG Mean Corpuscular Hemoglobin Concent 33.0 % Red Cell Distribution Width 15.1 % Platelet Count 323 TH/MM3 Mean Platelet Volume 7.7 FL Neutrophils (%) (Auto) 60.1 % Lymphocytes (%) (Auto) 21.7 % Monocytes (%) (Auto) 11.5 % Eosinophils (%) (Auto) 6.1 % Basophils (%) (Auto) 0.6 % Neutrophils # (Auto) 4.8 TH/MM3 Lymphocytes # (Auto) 1.7 TH/MM3 Monocytes # (Auto) 0.9 TH/MM3 Eosinophils # (Auto) 0.5 TH/MM3 Basophils # (Auto) 0.0 TH/MM3 CBC Comment DIFF FINAL Differential Comment Blood Urea Nitrogen 9 MG/DL Creatinine 0.58 MG/DL Random Glucose 129 MG/DL Total Protein 5.4 GM/DL Albumin 2.2 GM/DL Calcium Level 8.1 MG/DL Phosphorus Level 3.6 MG/DL Magnesium Level 2.3 MG/DL Alkaline Phosphatase 213 U/L Aspartate Amino Transf (AST/SGOT) 40 U/L Alanine Aminotransferase (ALT/SGPT) 27 U/L Total Bilirubin 0.2 MG/DL Sodium Level 143 MEQ/L Potassium Level 3.9 MEQ/L Chloride Level 106 MEQ/L Carbon Dioxide Level 30.1 MEQ/L Anion Gap 7 MEQ/L Estimat Glomerular Filtration Rate 102 ML/MIN Free Thyroxine 1.27 NG/DL Thyroid Stimulating Hormone 3rd Gen 0.526 uIU/ML Imaging Last Impressions Port Line Insertion 02/19/18 0000 Signed Impressions: Service Date/Time: Monday, February 19, 2018 15:23 - CONCLUSION: Uncomplicated ultrasound and fluoroscopic guided implanted central venous port catheter placement as described in detail above. An 8 [place] Power port was placed. Thomas Tong MD Gall Bladder Ultrasound 02/17/18 0000 Signed Impressions: Service Date/Time: Saturday, February 17, 2018 18:03 - CONCLUSION: 1. Multiple masses in the liver measuring up to 7.9 cm. 2. Contracted gallbladder; no shadowing stone seen. Sebastien Solomon MD Abdomen/Pelvis CT 02/17/18 0000 Signed Impressions: Service Date/Time: Saturday, February 17, 2018 19:31 - CONCLUSION: 4.4 cm colonic mass at the splenic flexure with numerous hepatic metastases measuring up to about 11 cm in diameter. Miko Lopes MD Objective Remarks GENERAL: AWAKE AND ALERT AND ORIENTED X3 TALKATIVE AND COOPERATIVE SKIN: Warm and dry. HEAD: Atraumatic. Normocephalic. EYES: Pupils equal and round. No scleral icterus. No injection or drainage. EOMI ENT: No nasal bleeding or discharge. Mucous membranes pink and moist. TONGUE MIDLINE NECK: Trachea midline. No JVD. SUPPLE CARDIOVASCULAR: Regular rate and rhythm. S1, S2 NO S3 OR S4 RESPIRATORY: No accessory muscle use. Clear to auscultation. Breath sounds equal bilaterally. GASTROINTESTINAL: Abdomen soft, non-tender, nondistended. Hepatic and splenic margins not palpable. MUSCULOSKELETAL: Extremities without clubbing, cyanosis, or edema. No obvious deformities. NEUROLOGICAL: Awake and alert. No obvious cranial nerve deficits. Motor grossly within normal limits. Five out of 5 muscle strength in the arms and legs. Normal speech. PSYCHIATRIC: Appropriate mood and affect; insight and judgment normal. Procedures DATE: 02/19/2018 PREOPERATIVE DIAGNOSES: 1. Multiple liver masses. 2. Abnormal splenic flexure, possible colon cancer. PROCEDURE PERFORMED: Limited colonoscopy. POSTOPERATIVE DIAGNOSES: 1. 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 2. Several polyps of the descending colon. 3. Diverticulosis of rectosigmoid, left colon. SURGEON: Faizan Richey MD DESCRIPTION OF PROCEDURE: The patient was placed in the left lateral decubitus position. After adequate anesthesia, sedation, rectal exam confirmed the impedance of the rectal vault. The Olympus colonoscope was then introduced into the rectum and advanced easily under direct vision into the proximal colon, getting to about the distal transverse colon, at which point, an obstructing carcinoma was seen. The lumen was not obvious and appeared to be quite narrow. Proximal advancement of the scope was not possible. Several biopsies of the tumor were obtained. Scope was then gradually withdrawn, noting some 1-1.5 cm polyps in the descending colon. They did not appear to be bleeding and were nonobstructing. The colon distally had quite a bit of diverticulosis, but no signs of any acute inflammation. No mucosal inflammation and no narrowing. The patient tolerated the procedure quite well and was brought to the recovery room in stable condition. Faizan Richey MD Medications and IVs Current Medications Sodium Chloride 1,000 ml @ 125 mls/hr Q8H IV Last administered on 02/17/18at 17: 13; Start 02/17/18 at 16:52; Stop 02/18/18 at 00:51; Status DC Sodium Chloride (NS Flush) 2 ml UNSCH PRN IV FLUSH FLUSH AFTER USING IV ACCESS ; Start 02/17/18 at 17:00; Stop 02/17/18 at 21:37; Status DC Iohexol (Omnipaque 350 Inj) 95 ml STK-MED ONCE IVCONTRAST Last administered on 02/17/18at 19:39; Start 02/17/18 at 19:39; Stop 02/17/18 at 19:40; Status DC Sodium Chloride (NS Flush) 2 ml UNSCH PRN IV FLUSH FLUSH AFTER USING IV ACCESS Last administered on 02/18/18 04:46; Start 02/17/18 at 20:45 Sodium Chloride (NS Flush) 2 ml BID IV FLUSH Last administered on 02/20/18 08: 24; Start 02/17/18 at 21:00 Prochlorperazine (Compazine Supp) 25 mg Q12H PRN RECTAL NAUSEA OR VOMITING; Start 02/17/18 at 20:45 Naloxone HCl (Narcan Inj) 0.4 mg UNSCH PRN IV PUSH SEE LABEL COMMENTS; Start at 20:45 Acetaminophen (Tylenol Supp) 650 mg Q4H PRN RECTAL fever > 100.4; Start at 20:45 Morphine Sulfate (Morphine Inj) 2 mg Q3H PRN IV PUSH pain > 4 Last administered on 02/17/18at 21:57; Start 02/17/18 at 20:45; Stop 02/18/18 at 11:39; Status DC Gabapentin (Neurontin) 600 mg HS PO Last administered on 02/19/18 21:31; Start 02/17/18 at 23:30 Levothyroxine Sodium (Synthroid) 100 mcg DAILY@0700 PO Last administered on 02/20 06:35; Start 02/18/18 at 07:00 Fluticasone Propionate (Flonase Andrea Spr) 1 spray BID EACH NARE Last administered on 02/18/18 08:19; Start 02/17/18 at 23:30; Stop 02/18/18 at 10:52; Status DC Sertraline HCl (Zoloft) 25 mg DAILY PO Last administered on 02/18/18 08:19; Start 02/18/18 at 09:00; Stop 02/18/18 at 10:52; Status DC Trazodone HCl (Desyrel) 75 mg HS PO Last administered on 02/19/18 21:31; Start 02/17/18 at 23:30 Pneumococcal Polyvalent Vaccine (Pneumovax-23 Inj) 25 mcg ONCE ONCE IM ; Start 02/18/18 at 09:00; Stop 02/18/18 at 09:01; Status DC Influenza Virus Vaccine (Flu (Quadrivalent) Vaccine Inj) 0.5 ml ONCE ONCE IM ; Start 02/18/18 at 09:00; Stop 02/18/18 at 09:01; Status DC Magnesium Hydroxide (Milk Of Magnesia Liq) 30 ml Q12H PRN PO Mild constipation ; Start 02/18/18 at 11:00 Sennosides (Senokot) 17.2 mg Q12H PRN PO Moderate constipation; Start 02/18/18 at 11:00 Bisacodyl (Dulcolax Supp) 10 mg DAILY PRN RECTAL SEVERE CONSITIPATION Last administered on 02/18/18at 11:30; Start 02/18/18 at 11:00 Lactulose (Lactulose Liq) 30 ml DAILY PRN PO SEVERE CONSITIPATION; Start at 11:00 Fluticasone Propionate (Flonase Andrea Spr) 1 spray HS EACH NARE Last administered on 02/19/18at 21:00; Start 02/18/18 at 21:00 Sertraline HCl (Zoloft) 100 mg DAILY PO Last administered on 02/20/18at 08:23; Start 02/19/18 at 09:00 Miscellaneous (Pill Splitter) 1 ea UNSCH PRN OTHER SEE LABEL COMMENTS; Start at 11:30 Acetaminophen/ Hydrocodone Bitart ([place] 5-325 Mg) 1 tab Q6H PRN PO PAIN SCALE 1 TO 10; Start 02/18/18 at 11:45 Hydrochlorothiazide (Hydrodiuril) 25 mg ONCE ONCE PO Last administered on at 20:55; Start 02/18/18 at 20:15; Stop 02/18/18 at 20:19; Status DC Magnesium Citrate (Citroma Liq) 150 ml NOW ONCE PO Last administered on at 21:33; Start 02/18/18 at 21:30; Stop 02/18/18 at 21:31; Status DC Magnesium Citrate (Citroma Liq) 150 ml ONCE PRN PO SEE LABEL COMMENTS Last administered on 02/19/18at 01:34; Start 02/19/18 at 01:30; Stop 02/19/18 at 04:00; Status DC Lactated Ringer's 1,000 ml @ 30 mls/hr Q24H PRN IV SEE LABEL COMMENTS; Start at 02:15; Stop 02/22/18 at 02:14 Sodium Chloride 500 ml @ 30 mls/hr [id number] PRN IV SEE LABEL COMMENTS; Start 02/19/18 at 02:15; Stop 02/22/18 at 02:14 Metoprolol Tartrate (Lopressor) 25 mg BOOK OR SCRIPT EDITOR PRN PO SEE LABEL COMMENTS; Start 02/19/18 at 02:15; Stop 02/22/18 at 02:14 Povidone Iodine (Betadine 5% Antisepsis Kit) 1 applic BOOK OR SCRIPT EDITOR PRN EACH NARE SEE LABEL COMMENTS; Start 02/19/18 at 02:15; Stop 02/22/18 at 02:14 Chlorhexidine Gluconate (Chlorhexidine 2% Cloth) 3 pack BOOK OR SCRIPT EDITOR PRN TOPICAL SEE LABEL COMMENTS; Start 02/19/18 at 02:15; Stop 02/22/18 at 02:14 Hydrochlorothiazide (Hydrodiuril) 25 mg DAILY PRN PO SYS BP GREATER THAN 160 MMHG; Start 02/19/18 at 10:00 Clonidine (Catapres) 0.1 mg Q4H PRN PO SBP>160, DBP>90 Last administered on 02/19at 18:34; Start 02/19/18 at 10:00 Vancomycin HCl 1000 mg/Sodium Chloride 250 ml @ 250 mls/hr BOOK [employer] SCRIPT EDITOR IV Last administered on 02/19/18at 13:47; Start 02/19/18 at 11:00; Stop 02/22/18 at 10:59 Midazolam HCl (Versed Inj) 5 mg STK-MED ONCE .ROUTE Last administered on at 15:05; Start 02/19/18 at 15:05; Stop 02/19/18 at 15:06; Status DC Fentanyl Citrate (fentaNYL INJ) 250 mcg STK-MED ONCE .ROUTE Last administered on 02/19/18at 15:05; Start 02/19/18 at 15:05; Stop 02/19/18 at 15:06; Status DC Vancomycin HCl (Vancomycin Inj) 1,000 mg STK-MED ONCE .ROUTE ; Start 02/19/18 at 15:23; Stop 02/19/18 at 15:24; Status DC Sodium Chloride 250 ml @ As Directed STK-MED ONCE .ROUTE ; Start 02/19/18 at 15: 23; Stop 02/19/18 at 15:24; Status DC Heparin Sodium (Porcine) (Heparin Central Flush) 500 units STK-MED ONCE IV FLUSH Last administered on 02/19/18at 15:48; Start 02/19/18 at 15:48; Stop at 15:49; Status DC Lidocaine/ Epinephrine (Xylocaine-Epi 1%-1:100,000 Inj) 30 ml STK-MED ONCE .ROUTE Last administered on 02/19/18at 15:48; Start 02/19/18 at 15:48; Stop at 15:49; Status DC Heparin Sodium (Porcine) (Heparin Central Flush) 500 units UNSCH IV FLUSH ; Start 02/19/18 at 16:30 Sodium Chloride (NS Flush) 5 ml UNSCH PRN IVF SEE PROTOCOL; Start 02/19/18 at 16 :30 Heparin Sodium (Porcine) (Heparin Central Flush) 250 units UNSCH PRN IV FLUSH SEE PROTOCOL; Start 02/19/18 at 16:30 Acetaminophen (Tylenol) 650 mg ONCE ONCE PO Last administered on 02/20/18at 10: 24; Start 02/20/18 at 10:00; Stop 02/20/18 at 10:01; Status DC A/P Problem List: (1) Colonic mass ICD Code: K63.9 - Disease of intestine, unspecified Status: Acute (2) Intussusception of large intestine ICD Code: K56.1 - Intussusception Status: Acute (3) Hepatic metastasis ICD Code: C78.7 - Secondary malignant neoplasm of liver and intrahepatic bile duct Status: Acute Assessment and Plan 72 y/o female who recently had positive preoperative fecal occult blood testing resulting in gastroenterology referral with planned colonoscopy in the near future who presented to the emergency room on 02/17/2018 complaining of progressively worsening abdominal pain. Abdomen/pelvis CT showed 4.4 cm colonic mass at splenic flexure and numerous hepatic metastases. The patient is admitted to [facility] for further evaluation and management. COLONOSCOPY 4-4 Colon Mass with partial intussusception and hepatic metastases -Abdomen/pelvis CT showed 4.4 cm colonic mass at splenic flexure which also appears to be associated with partial intussusception with numerous hepatic metastases -Dr. Richey, colorectal surgeon consulted -Medical oncology consulted - Continue with pain control as needed. Start clear liquid diet. COLONOSCOPY 4-4 Obstructing cancer of the distal transverse splenic flexure. Hypothyroidism -Continue home medications Depression -Continue home Desyrel and Zoloft Hyponatremia, mild -Sodium 134 on admission -Patient received normal saline at 125 cc/h 1 bag -has history of CHF of uncertain etiology -She refused lab today. Mild anemia likely secondary to slow GI bleed due to colon mass -Patient has a history of positive fecal occult blood testing -Follow CBC. Patient aware of the importance of getting lab work done. COLONOSCOPY 4-4 HYPERTENSION- HOME MEDS AND PRNS SP RIGHT IJ PORT ON 4-4 DVT prophylaxis -SCDs/teds DC TO HOME TODAY DW RN AND PT Discharge Planning PENDING ONCOLOGY AND SURGICAL CLEARANCE Mikey Rosales DO Feb 20, 2018 10:41
[2018-02-20] MEDS ORDERED: Lactulose Liq PO (12:02)
[2018-02-20] MEDS ORDERED: HYDR25TA5 PO (12:02)
[2018-02-20] MEDS ORDERED: GABA600T PO (12:02)
[2018-02-20] MEDS ORDERED: TRAZ1TAB14 PO (12:02)
[2018-02-20] MEDS ORDERED: FLUT1SPR5 EACH NARE (12:02)
[2018-02-20] MEDS ORDERED: LEVO.1 PO (12:02)
[2018-02-20] MEDS ORDERED: ZOLO50TA PO (12:02)
[2018-02-20] MEDS ORDERED: SENN187 PO (12:02)
[2018-02-20] MEDS ORDERED: TRAM50TA PO (12:02)
--- NOTE | 2018-02-20 12:06 | HHI.DS ---
Discharge Summary Admission Date Feb 17, 2018 at 20:34 Discharge Date: Feb 20, 2018 Admitting Diagnosis Colonic mass with partial intussusception, hepatic metastasis, abdom (1) Colonic mass ICD Code: K63.9 - Disease of intestine, unspecified Diagnosis: Principal Status: Acute (2) Intussusception of large intestine ICD Code: K56.1 - Intussusception Diagnosis: Secondary Status: Acute (3) Hepatic metastasis ICD Code: C78.7 - Secondary malignant neoplasm of liver and intrahepatic bile duct Diagnosis: Principal Status: Acute Procedures [id number] RIGHT IJ PORT BY IR DATE: 02/19/2018 PREOPERATIVE DIAGNOSES: 1. Multiple liver masses. 2. Abnormal splenic flexure, possible colon cancer. PROCEDURE PERFORMED: Limited colonoscopy. POSTOPERATIVE DIAGNOSES: 1. 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 2. Several polyps of the descending colon. 3. Diverticulosis of rectosigmoid, left colon. SURGEON: Faizan Richey MD DESCRIPTION OF PROCEDURE: The patient was placed in the left lateral decubitus position. After adequate anesthesia, sedation, rectal exam confirmed the impedance of the rectal vault. The Olympus colonoscope was then introduced into the rectum and advanced easily under direct vision into the proximal colon, getting to about the distal transverse colon, at which point, an obstructing carcinoma was seen. The lumen was not obvious and appeared to be quite narrow. Proximal advancement of the scope was not possible. Several biopsies of the tumor were obtained. Scope was then gradually withdrawn, noting some 1-1.5 cm polyps in the descending colon. They did not appear to be bleeding and were nonobstructing. The colon distally had quite a bit of diverticulosis, but no signs of any acute inflammation. No mucosal inflammation and no narrowing. The patient tolerated the procedure quite well and was brought to the recovery room in stable condition. Faizan Richey MD Brief History - From Admission Ms. Jeffery is a 72 y/o female who recently had positive preoperative fecal occult blood testing resulting in gastroenterology referral with planned colonoscopy in the near future who presented to the emergency room on 02/17/2018 complaining of progressively worsening abdominal pain. Abdomen/pelvis CT showed 4.4 cm colonic mass at splenic flexure and numerous hepatic metastases. The patient is admitted to [facility] for further evaluation and management. Patient is seen in her hospital room. She reports that she has been having abdominal bloating and feeling "gassy" for about a month. Approximately 1 week ago, she developed severe RUQ abdominal pain. A few days ago, she started to note that her pain was significantly exacerbated by deep breathing. The pain is intermittent. She states it became so severe that she had to go to the ER. Her pain has been successfully relieved by IV Morphine. Last BM was medium sized and occurred 02/16/18. She denies hematochezia or tarry stools. CBC/BMP: 02/20/18 0445 02/20/18 0445 Significant Findings Laboratory Tests Test 02/17/18 17:00 02/17/18 20:09 02/19/18 06:17 02/19/18 12:37 Hemoglobin 11.3 GM/DL (11.6-15.3) Hematocrit 34.1 % (35.0-46.0) Mean Corpuscular Hemoglobin 26.7 PG (27.0-34.0) 26.1 PG (27.0-34.0) Monocytes (%) (Auto) 11.5 % (0.0-8.0) 13.5 % (0.0-8.0) Monocytes # (Auto) 1.1 TH/MM3 (0-0.9) 1.0 TH/MM3 (0-0.9) Random Glucose 118 MG/DL (74-106) Albumin 2.7 GM/DL (3.4-5.0) 2.6 GM/DL (3.4-5.0) Alkaline Phosphatase 204 U/L (45-117) 214 U/L (45-117) Aspartate Amino Transf (AST/SGOT) 41 U/L (15-37) 40 U/L (15-37) Sodium Level 134 MEQ/L (136-145) Chloride Level 97 MEQ/L (98-107) Urine Bacteria FEW /hpf (NONE) Mean Corpuscular Volume 79.9 FL (80.0-100.0) Eosinophils (%) (Auto) 5.2 % (0.0-4.0) Creatinine 0.48 MG/DL (0.50-1.00) Total Protein 6.2 GM/DL (6.4-8.2) Iron Level 23 MCG/DL (50-170) Percent Iron Saturation 8.5 % (20-50) Carcinoembryonic Antigen 2306.7 NG/ML (0.2-5.0) Prothrombin Time 11.7 SEC (9.8-11.6) Activated Partial Thromboplast Time 21.0 SEC (24.3-30.1) Test 02/20/18 04:45 Hemoglobin 10.7 GM/DL (11.6-15.3) Hematocrit 32.4 % (35.0-46.0) Mean Corpuscular Hemoglobin 26.6 PG (27.0-34.0) Monocytes (%) (Auto) 11.5 % (0.0-8.0) Eosinophils (%) (Auto) 6.1 % (0.0-4.0) Eosinophils # (Auto) 0.5 TH/MM3 (0-0.4) Random Glucose 129 MG/DL (74-106) Total Protein 5.4 GM/DL (6.4-8.2) Albumin 2.2 GM/DL (3.4-5.0) Calcium Level 8.1 MG/DL (8.5-10.1) Alkaline Phosphatase 213 U/L (45-117) Aspartate Amino Transf (AST/SGOT) 40 U/L (15-37) Imaging Last Impressions Port Line Insertion 02/19/18 0000 Signed Impressions: Service Date/Time: Monday, February 19, 2018 15:23 - CONCLUSION: Uncomplicated ultrasound and fluoroscopic guided implanted central venous port catheter placement as described in detail above. An 8 [place] Power port was placed. Thomas Tong MD Gall Bladder Ultrasound 02/17/18 0000 Signed Impressions: Service Date/Time: Saturday, February 17, 2018 18:03 - CONCLUSION: 1. Multiple masses in the liver measuring up to 7.9 cm. 2. Contracted gallbladder; no shadowing stone seen. Sebastien Solomon MD Abdomen/Pelvis CT 02/17/18 0000 Signed Impressions: Service Date/Time: Saturday, February 17, 2018 19:31 - CONCLUSION: 4.4 cm colonic mass at the splenic flexure with numerous hepatic metastases measuring up to about 11 cm in diameter. Miko Lopes MD PE at Discharge GENERAL: AWAKE AND ALERT AND ORIENTED X3 TALKATIVE AND COOPERATIVE SKIN: Warm and dry. HEAD: Atraumatic. Normocephalic. EYES: Pupils equal and round. No scleral icterus. No injection or drainage. EOMI ENT: No nasal bleeding or discharge. Mucous membranes pink and moist. TONGUE MIDLINE NECK: Trachea midline. No JVD. SUPPLE CARDIOVASCULAR: Regular rate and rhythm. S1, S2 NO S3 OR S4 RESPIRATORY: No accessory muscle use. Clear to auscultation. Breath sounds equal bilaterally. GASTROINTESTINAL: Abdomen soft, non-tender, nondistended. Hepatic and splenic margins not palpable. MUSCULOSKELETAL: Extremities without clubbing, cyanosis, or edema. No obvious deformities. NEUROLOGICAL: Awake and alert. No obvious cranial nerve deficits. Motor grossly within normal limits. Five out of 5 muscle strength in the arms and legs. Normal speech. PSYCHIATRIC: Appropriate mood and affect; insight and judgment normal. Hospital Course Ms. Jeffery is a 72 y/o female who recently had positive preoperative fecal occult blood testing resulting in gastroenterology referral with planned colonoscopy in the near future who presented to the emergency room on 02/17/2018 complaining of progressively worsening abdominal pain. Abdomen/pelvis CT showed 4.4 cm colonic mass at splenic flexure and numerous hepatic metastases. The patient is admitted to [facility] for further evaluation and management. Patient is seen in her hospital room. She reports that she has been having abdominal bloating and feeling "gassy" for about a month. Approximately 1 week ago, she developed severe RUQ abdominal pain. A few days ago, she started to note that her pain was significantly exacerbated by deep breathing. The pain is intermittent. She states it became so severe that she had to go to the ER. Her pain has been successfully relieved by IV Morphine. Last BM was medium sized and occurred 02/16/18. She denies hematochezia or tarry stools. 4-3 Mild RUQ abdominal pain. Requesting a suppository which she normally takes at home and helps relieve her pain. -4 PATIENT IS SCHEDULED TO HAVE COLONOSCOPY TODAY DW RN AND PT HAVING BLOOD PRESSURE ISSUES ADD CLONIDINE REY RN AND CM AND PT 4-5 SP RIGHT IJ PORT ON 4-[address] RICHEY SHOWED Obstructing cancer of the distal transverse splenic flexure. WANTS TO GO HOME CLEARED BY ONCOLOGY CLEARED BY DR RICHEY WANTS TO GO HOME DC TO HOME TODAY Pt Condition on Discharge: Good Discharge Disposition: Discharge Home Discharge Time: > 30 minutes Discharge Instructions DIET: Follow Instructions for: Heart Healthy Diet Speech Therapy-Diet Recommends: Regular Activities you can perform: Regular-No Restrictions Follow up Referrals: Colorectal Surgery - 2 Weeks with Faizan Richey MD Oncology/Hematology - 1 Week PCP Follow-up - 2-3 Days New Medications: Sennosides (Senna-Lax) 8.6 Mg Tab 17.2 MG PO Q12H PRN for Moderate constipation, #120 TAB Sertraline (Zoloft) 50 Mg Tab 100 MG PO DAILY for Depression Control, #30 TAB [Lactulose Liq] () 30 ML SYRP 30 ML PO DAILY PRN for SEVERE CONSITIPATION, #1 BOTTLE Continued Medications: Fluticasone Nasal [place] (Flonase Nasal [place]) 50 Mcg/Act [place] 50 MCG EACH NARE BID for Allergies, #1 BOTTLE 0 Refills (This prescription has been renewed) Gabapentin (Gabapentin) 600 Mg Tab 600 MG PO HS for Pain Management, #30 TAB 0 Refills (This prescription has been renewed) Hydrochlorothiazide (Hydrochlorothiazide) 25 Mg Tab 25 MG PO DAILY PRN for hypertension, #30 TAB 0 Refills (This prescription has been renewed) Levothyroxine (Synthroid) 100 Mcg Tab 100 MCG PO DAILY for Thyroid, #30 TAB 0 Refills (This prescription has been renewed) Tramadol (Tramadol) 50 Mg Tab 50 MG PO Q4H PRN for PAIN, #60 TAB 0 Refills (This prescription has been renewed ) Trazodone (Trazodone) 150 Mg Tablet 75 MG PO HS for Control Depression, #60 TAB 0 Refills (This prescription has been renewed) Discontinued Medications: Sertraline (Sertraline) 25 Mg Tab 25 MG PO DAILY, #30 TAB 0 Refills Mikey Rosales DO Feb 20, 2018 12:05
[2018-02-20 12:39] VITALS: BP 150/92; PULSE 75; RESP 20; TEMP 97.9; O2SAT 95
[2018-02-20 17:25] LABS: HEMOGLOBIN A1C 6.2 % (4.3-6.0)
== END 2018-02-20 16:27 | disposition home or self-care (01) | DRG 375 ==
LOC: PHED 16:15 → PHEDA 20:34 → HCIN 23:01
PROVIDERS: ADMIT Hospitalist; ATTEND Hospitalist
PROC: 0JH63WZ Insertion of Totally Implantable Vascular Access Device into Chest Subcutaneous Tissue and Fascia, Percutaneous Approach (ICD-10-PCS; 2018-02-19)
PROC: 02HV33Z Insertion of Infusion Device into Superior Vena Cava, Percutaneous Approach (ICD-10-PCS; 2018-02-19)
PROC: 0DBL8ZX Excision of Transverse Colon, Via Natural or Artificial Opening Endoscopic, Diagnostic (ICD-10-PCS; principal; 2018-02-19 10:18)
DX: C18.5 Malignant neoplasm of splenic flexure (principal); K56.1 Intussusception; K56.699 Other intestinal obstruction unspecified as to partial versus complete obstruction; I11.0 Hypertensive heart disease with heart failure; C78.7 Secondary malignant neoplasm of liver and intrahepatic bile duct; E87.1 Hypo-osmolality and hyponatremia; I50.9 Heart failure, unspecified; E03.9 Hypothyroidism, unspecified; K57.30 Diverticulosis of large intestine without perforation or abscess without bleeding; H91.90 Unspecified hearing loss, unspecified ear; F17.210 Nicotine dependence, cigarettes, uncomplicated; F32.9 Major depressive disorder, single episode, unspecified; D12.4 Benign neoplasm of descending colon; Z90.710 Acquired absence of both cervix and uterus; Z88.6 Allergy status to analgesic agent; Z88.0 Allergy status to penicillin; Z80.0 Family history of malignant neoplasm of digestive organs; D63.8 Anemia in other chronic diseases classified elsewhere; H26.9 Unspecified cataract
CPT/HCPCS: 36561; 74177; 76705; 76937; 77001; 80053; 81001; 82378; 82728; 83036; 83540; 83550; 83605; 83690; 83735; 84100; 84439; 84443; 85025; 85610; 85730; 88305; 88307; 93005; 96360; 96361; 99152; 99153; C1788; J1642; J2250; J2270; J3010; J3370; J7030; J7050; Q9967

== ENCOUNTER 2018-03-08 22:34 | Inpatient (IN) | payer OTHER, MEDICARE ==
[~2018-03-08] VITALS: Ht 157.5 cm; Wt 78.1 kg
[~2018-03-08 22:34] MED LIST changes: +FLUT1SPR5 EACH NARE; +Lactulose Liq PO; +SENN187 PO; -SERT25TA83 PO; +TRAZ1TAB14 PO; +ZOLO50TA PO
[2018-03-08] MEDS ORDERED: IOHEXOL 350 MG/ML 10 ML VIAL (for RAD DIAG) IVCONTRAST ONE (22:35)
[2018-03-08 22:48] VITALS: BP 184/107; PULSE 84; RESP 16; TEMP 98.2; O2SAT 96
[2018-03-08] MEDS ORDERED: SODIUM CHLOR 0.9% 1000 ML INJ 1,000 ML IV SCH (22:58)
[2018-03-08] MEDS ORDERED: ONDANSETRON HCL 4 MG/2 ML VIAL IVP ONE (23:00)
--- NOTE | 2018-03-08 23:30 | RADRPT ---
EXAM DATE/TIME: 03/08/2018 23:17 [facility] COMPARISON: No previous studies available for comparison. INDICATIONS : Abdominal pain and vomiting. MEDICAL HISTORY : Carcinoma, colon. Hypothyroidism. Congestive heart failure. SURGICAL HISTORY : Tonsillectomy. Hysterectomy. Infusa port.Bilateral feet hammertoe repair. Lt radius fracture repair . ENCOUNTER: Initial ACUITY: 2 days PAIN SCORE: 10/10 LOCATION: abdomen, inferior. FINDINGS: A single erect view of the abdomen demonstrates the lower lungs to be clear. No evidence of free int raperitoneal gas. No dilated loops of bowel. Moderate amount of stool throughout a normal caliber col on. Multiple venous calcifications overlie the pelvis.. CONCLUSION: Constipation. Sebastien Dunlap Jr., MD on March 08, 2018 at 23:28 Board Certified Radiologist. This report was verified electronically.
[2018-03-08 23:38] VITALS: RESP 20; O2SAT 96
[2018-03-09] MEDS ORDERED: DIATRIZOATE MEGLUM/DIATRIZOATE SOD 9 ML CUP ONE (00:26)
[2018-03-09 00:31] LABS: AUTOMATED NEUTROPHIL # 6.1 TH/MM3 (1.8-7.7); BASOPHIL # 0.1 TH/MM3 (0-0.2); BASOPHIL % 0.7 % (0.0-2.0); EOSINOPHIL # 0.1 TH/MM3 (0-0.4); EOSINOPHIL % 1.2 % (0.0-4.0); HEMATOCRIT 37.7 % (35.0-46.0); HEMOGLOBIN 12.2 GM/DL (11.6-15.3); LYMPH % 18.1 % (9.0-44.0); LYMPHOCYTE # 1.5 TH/MM3 (1.0-4.8); MEAN CELL VOLUME 79.7 FL (80.0-100.0); MEAN CORPUSCULAR HEMOGLOBIN 25.7 PG (27.0-34.0); MEAN CORPUSCULAR HGB CONC 32.3 % (32.0-36.0); MEAN PLATELET VOLUME 7.6 FL (7.0-11.0); MONO % 4.3 % (0.0-8.0); MONOCYTE # 0.3 TH/MM3 (0-0.9); NEUT % 75.7 % (16.0-70.0); PLATELET COUNT 314 TH/MM3 (150-450); RED BLOOD COUNT 4.74 MIL/MM3 (4.00-5.30); RED CELL DISTRIBUTION WIDTH 15.9 % (11.6-17.2); WHITE BLOOD COUNT 8.1 TH/MM3 (4.0-11.0)
[2018-03-09 00:58] LABS: ALT (GPT) 39 U/L (10-53); AST (GOT) 47 U/L (15-37); BICARBONATE 31.1 MEQ/L (21.0-32.0); BLOOD UREA NITROGEN 9 MG/DL (7-18); CALCIUM 8.7 MG/DL (8.5-10.1); CHLORIDE 102 MEQ/L (98-107); CREATININE 0.46 MG/DL (0.50-1.00); GLOMERULAR FILTRATION RATE 133 ML/MIN (>89); GLUCOSE,RANDOM 112 MG/DL (74-106); SODIUM (NA) 140 MEQ/L (136-145)
[2018-03-09 01:00] LABS: ALKALINE PHOSPHATASE 220 U/L (45-117); TOTAL BILIRUBIN ADULT 0.4 MG/DL (0.2-1.0); TOTAL PROTEIN 6.5 GM/DL (6.4-8.2)
--- NOTE | 2018-03-09 01:08 | PD ---
HPI Chief Complaint: Abdominal Pain Time Seen by Provider: 22:58 Travel History International Travel<30 days: No Contact w/Intl Traveler<30days: No Traveled to known affect area: No History of Present Illness HPI 73-year-old female with a history of colon cancer with metastatic disease to liver, presents today with complaints of abdominal pain with associated nausea vomiting. Patient just started her chemotherapy on Saturday. Despite trying fleets enema, Senokot, lactulose, soapsuds enema, the patient is still not able to have a bowel movement. She was sent here at the request of Dr. Valeria Donato for evaluation and possible admission. There is no reported fevers, chills. There is no reported urinary symptoms. PFSH Past Medical History Arthritis: Yes (Knees and back) Depression: Yes Cancer: Yes (Admitted 02/17/2018 with colon mass) Cardiovascular Problems: No Diabetes: No Diminished Hearing: No Endocrine: No Gastrointestinal Disorders: Yes (Admitted 02/17/2018 forcolon mass and liver mets ) Genitourinary: Yes (Mild incontinence at night.) Hepatitis: No Hiatal Hernia: No Hypertension: No Immune Disorder: No Musculoskeletal: Yes Neurologic: No Psychiatric: Yes Reproductive: Yes (hYSTERECTOMY IN 1977 FOR BLEEDING.) Respiratory: No Immunizations Current: No Thyroid Disease: Yes Tetanus Vaccination: < 5 Years Influenza Vaccination: No Past Surgical History Abdominal Surgery: No Cardiac Surgery: No Ear Surgery: No Endocrine Surgery: No Eye Surgery: Yes (Cataract surgery left eye late January 2018, right eye 2016) Genitourinary Surgery: No Gynecologic Surgery: Yes ( A&P REPAIR, HYSTERECTOMY 1977) Hysterectomy: Yes Joint Replacement: No Neurologic Surgery: No Oral Surgery: No Pacemaker: No Thoracic Surgery: No Tonsillectomy: Yes Other Surgery: Yes Social History Alcohol Use: No Tobacco Use: No Substance Use: No Allergies-Medications (Allergen,Severity, Reaction): Coded Allergies: penicillin G (Verified Allergy, Severe, Anaphylaxis, 03/08/18) Uncoded Allergies: NSAIDS (Allergy, Severe, SWELLING, 01/18/18) Reported Meds & Prescriptions Reported Meds & Active Scripts Active Senna-Lax (Sennosides) 8.6 Mg Tab 17.2 Mg PO Q12H PRN [Lactulose Liq] 30 ML Syrp 30 Ml PO DAILY PRN Zoloft (Sertraline HCl) 50 Mg Tab 100 Mg PO DAILY Flonase Nasal [place] (Fluticasone Nasal [place]) 50 Mcg/Act [place] 50 Mcg EACH NARE BID Trazodone (Trazodone HCl) 150 Mg Tablet 75 Mg PO HS Tramadol (Tramadol HCl) 50 Mg Tab 50 Mg PO Q4H PRN Hydrochlorothiazide 25 Mg Tab 25 Mg PO DAILY PRN Gabapentin 600 Mg Tab 600 Mg PO HS Synthroid (Levothyroxine Sodium) 100 Mcg Tab 100 Mcg PO DAILY Review of Systems Except as stated in HPI: all other systems reviewed are Neg General / Constitutional: No: Fever, Chills HENT: No: Headaches, Lightheadedness Cardiovascular: No: Chest Pain or Discomfort Respiratory: Positive: Cough, No: Shortness of Breath Gastrointestinal: Positive: Nausea, Vomiting, Abdominal Pain, Constipation Genitourinary: No: Frequency, Dysuria Musculoskeletal: No: Weakness, Pain Neurologic: No: Weakness, Dizziness, Headache Physical Exam Narrative GENERAL: Well-developed well-nourished female in no acute respiratory distress. SKIN: Focused skin assessment warm/dry. HEAD: Atraumatic. Normocephalic. EYES: Pupils equal and round. No scleral icterus. No injection or drainage. ENT: No nasal bleeding or discharge. Mucous membranes pink and moist. NECK: Trachea midline. Supple. CARDIOVASCULAR: Regular rate and rhythm. No murmur appreciated. RESPIRATORY: No accessory muscle use. Clear to auscultation. Breath sounds equal bilaterally. GASTROINTESTINAL: Abdomen soft, slight distention. There is no rebound or guarding. Patient has subjective lower quadrant pain worse on the left than on the right. MUSCULOSKELETAL: No obvious deformities. No clubbing. No cyanosis. No edema. NEUROLOGICAL: Awake and alert. No obvious cranial nerve deficits. Motor grossly within normal limits. Normal speech. PSYCHIATRIC: Appropriate mood and affect; insight and judgment normal. Data Data Last Documented VS Vital Signs Date Time Temp Pulse Resp B/P (MAP) Pulse Ox O2 Delivery O2 Flow Rate FiO2 03/08/18 23:38 20 96 Room Air 03/08/18 22:48 98.2 84 184/107 (132) Orders Orders Complete Blood Count With Diff (03/08/18 22:58) Comprehensive Metabolic Panel (03/08/18 22:58) Lipase (03/08/18 22:58) Lactic Acid (03/08/18 22:58) Urinalysis - C+S If Indicated (03/08/18 22:58) Ct Abd/Pel W Iv Contrast(Rout) (03/08/18 22:58) Iv Access Insert/Monitor (03/08/18 22:58) Ecg Monitoring (03/08/18 22:58) Oximetry (03/08/18 22:58) Ondansetron Inj (Zofran Inj) (03/08/18 23:00) Sodium Chlor 0.9% 1000 Ml Inj (Ns 1000 M (03/08/18 22:58) Sodium Chloride 0.9% Flush (Ns Flush) (03/08/18 23:00) Abdomen, Upright Only (03/08/18 22:58) Oral Contrast - Adult (03/09/18 00:23) Diatrizoate Liq ( Gastromustapha Liq) (03/09/18 00:26) Sodium Chlor 0.9% 1000 Ml Inj (Ns 1000 M (03/09/18 01:15) Iohexol 350 Inj (Omnipaque 350 Inj) (03/08/18 22:35) Levofloxacin 500 Mg Premix Inj (Levaquin (03/09/18 02:30) Metronidazole 500 Mg Inj (Flagyl 500 Mg (03/09/18 02:30) Admit Order (Ed Use Only) (03/09/18 02:45) Admit Order (Ed Use Only) (03/09/18 ) Vital Signs (Adult) Q4H (03/09/18 02:46) Diet Npo (03/09/18 Breakfast) Activity Oob With Assistance (03/09/18 02:46) Levofloxacin 500 Mg Premix Inj (Levaquin (03/09/18 03:00) Metronidazole 500 Mg Inj (Flagyl 500 Mg (03/09/18 03:00) D5-1/2 Ns + Kcl 20 Meq Inj (D5-1/2 Ns + (03/09/18 03:00) Labs Laboratory Tests Test 03/09/18 00:10 White Blood Count 8.1 TH/MM3 Red Blood Count 4.74 MIL/MM3 Hemoglobin 12.2 GM/DL Hematocrit 37.7 % Mean Corpuscular Volume 79.7 FL Mean Corpuscular Hemoglobin 25.7 PG Mean Corpuscular Hemoglobin Concent 32.3 % Red Cell Distribution Width 15.9 % Platelet Count 314 TH/MM3 Mean Platelet Volume 7.6 FL Neutrophils (%) (Auto) 75.7 % Lymphocytes (%) (Auto) 18.1 % Monocytes (%) (Auto) 4.3 % Eosinophils (%) (Auto) 1.2 % Basophils (%) (Auto) 0.7 % Neutrophils # (Auto) 6.1 TH/MM3 Lymphocytes # (Auto) 1.5 TH/MM3 Monocytes # (Auto) 0.3 TH/MM3 Eosinophils # (Auto) 0.1 TH/MM3 Basophils # (Auto) 0.1 TH/MM3 CBC Comment DIFF FINAL Differential Comment Blood Urea Nitrogen 9 MG/DL Creatinine 0.46 MG/DL Random Glucose 112 MG/DL Total Protein 6.5 GM/DL Albumin 3.0 GM/DL Calcium Level 8.7 MG/DL Alkaline Phosphatase 220 U/L Aspartate Amino Transf (AST/SGOT) 47 U/L Alanine Aminotransferase (ALT/SGPT) 39 U/L Total Bilirubin 0.4 MG/DL Sodium Level 140 MEQ/L Potassium Level 3.8 MEQ/L Chloride Level 102 MEQ/L Carbon Dioxide Level 31.1 MEQ/L Anion Gap 7 MEQ/L Estimat Glomerular Filtration Rate 133 ML/MIN Lactic Acid Level 0.7 mmol/L Lipase 142 U/L MDM Medical Decision Making Medical Screen Exam Complete: Yes Emergency Medical Condition: Yes Differential Diagnosis Obstipation versus bowel obstruction versus constipation Narrative Course 33-year-old female with history colon cancer with metastatic disease to the liver, presents today with complaints of abdominal pain and inability to have a bowel movement. Patient reports that over the last 24 hours she is used multiple laxatives as well as enema with no results. There is no reported fevers, chills. There is reported associated nausea vomiting. Upright abdomen showed constipation. There are no air-fluid levels noted. CT scan of the M pelvis with IV and oral contrast showed diverticulitis as well as constipation and metastatic disease to the liver. Case was discussed with Dr. Valeria Donato, physician covering for Dr. Faizan Glasgow, patient's colorectal physician who recommended we admit the patient to their service. She has been started on Levaquin and Flagyl. She is also been started on IV fluids. She will be made n.p.o. Diagnosis Primary Impression: Diverticulitis Additional Impressions: Constipation Metastatic colon cancer in female Nausea & vomiting Abdominal pain Admitting Information Admitting Physician Requests: Admit Joby Donato MD Mar 09, 2018 01:08
[2018-03-09] MEDS: SODIUM CHLOR 0.9% 1000 ML INJ 1,000 ML IV SCH ×2 (01:15→09:15)
--- NOTE | 2018-03-09 02:18 | RADRPT ---
EXAM DATE/TIME: 03/09/2018 01:42 [facility] COMPARISON: CT ABDOMEN & PELVIS W CONTRAST, February 17, 2018, 19:31. INDICATIONS : Abdomen pain with metastatic colon cancer IV CONTRAST: 70 cc Omnipaque 350 (iohexol) IV ORAL CONTRAST: Patient refused oral contrast. RADIATION DOSE: 10.51 CTDIvol (mGy) MEDICAL HISTORY : Metastatic, colon. SURGICAL HISTORY : Hysterectomy. ENCOUNTER: Initial ACUITY: 1 day PAIN SCALE: 10/10 LOCATION: Bilateral abdomen TECHNIQUE: Volumetric scanning of the abdomen and pelvis was performed. Using automated exposure control and ad justment of the mA and/or kV according to patient size, radiation dose was kept as low as reasonably achievable to obtain optimal diagnostic quality images. DICOM format image data is available electro nically for review and comparison. FINDINGS: LOWER LUNGS: Bibasilar atelectasis. LIVER: Diffuse metastatic involvement of the liver parenchyma with multiple low density masses scattered thr oughout. The largest mass measures 9 cm within the dome of the liver. Overall these are stable. No du ctal dilatation. Portal vein is patent. Gallbladder is unremarkable. SPLEEN: Normal size without lesion. PANCREAS: Within normal limits. KIDNEYS: Normal in size and shape. There is no mass, stone or hydronephrosis. ADRENAL GLANDS: Within normal limits. VASCULAR: There is no aortic aneurysm. BOWEL/MESENTERY: There is a mild inflammatory process involving the distal transverse colon. A few scattered diverticu la noted within this region. There is mild stranding in the adjacent fat. Significant stool burden is noted throughout the transverse colon. Small bowel and stomach are unremarkable. No free air or free fluid. ABDOMINAL WALL: Within normal limits. RETROPERITONEUM: There is no lymphadenopathy. BLADDER: No wall thickening or mass. REPRODUCTIVE: Within normal limits. INGUINAL: There is no lymphadenopathy or hernia. MUSCULOSKELETAL: Within normal limits for patient age. CONCLUSION: 1. Acute colitis likely related to diverticulitis. 2. Constipation. 3. No free air or free fluid. 4. Metastatic disease to the liver is stable in appearance from the prior CT. Sebastien Dunlap Jr., MD on March 09, 2018 at 2:13 Board Certified Radiologist. This report was verified electronically.
[2018-03-09] MEDS ORDERED: metroNIDAZOLE 500 MG INJ 100 ML IV ONE (02:30)
[2018-03-09] MEDS ORDERED: LEVOFLOXACIN 500 MG PREMIX INJ 100 ML IV ONE (02:30)
[2018-03-09] MEDS: metroNIDAZOLE 500 MG INJ 100 ML IV SCH ×3 (03:00→20:53)
[2018-03-09] MEDS ORDERED: DICYCLOMINE HCL 20 MG/2 ML VIAL IM ONE (03:00)
[2018-03-09] MEDS ORDERED: D5-1/2 NS + KCL 20 MEQ INJ 1,000 ML IV SCH (03:00)
[2018-03-09 03:28] LABS: BACTERIA, URINE MOD /hpf; BILIRUBIN, URINE NEG (NEG); BLOOD, URINE NEG (NEG); GLUCOSE,URINE NEG (NEG); KETONE, URINE 40 mg/dL (NEG); NITRITE,URINE NEG (NEG); PH, URINE 7.5 (5.0-8.5); SQUAMOUS EPITHELIAL CELL URINE 2 /hpf (0-5); URINE COLOR YELLOW (YELLW/STRAW); URINE LEUKOCYTE ESTERASE NEG (NEG)
[2018-03-09] MEDS: LEVOFLOXACIN 500 MG PREMIX INJ 100 ML IV SCH (03:33)
[2018-03-09] MEDS ORDERED: CYCL5TAB PO (04:50)
[2018-03-09 05:00] VITALS: BP 151/92; PULSE 79; PULSE 82; RESP 16; TEMP 97.9; O2SAT 95
[2018-03-09 08:19] VITALS: BP 154/89; PULSE 87; RESP 16; TEMP 98.3; O2SAT 95
[2018-03-09 09:01] VITALS: PULSE 103
[2018-03-09 11:02] VITALS: BP 152/86; PULSE 89; RESP 16; TEMP 98.4; O2SAT 96
--- NOTE | 2018-03-09 11:57 | MH ---
cc: Valeria Donato MD DATE OF ADMISSION: 03/09/2018 CHIEF COMPLAINT: Abdominal pain. HISTORY OF PRESENT ILLNESS: The patient is a 73-year-old female with a history of metastatic colon cancer. She was recently diagnosed with a partially obstructing distal transverse colon cancer with multiple metastases to the liver. After discussion, it was felt that they would try for chemotherapy rather than surgery as she had such a large disease burden in the liver. She just completed her first dose of chemotherapy when she began having failure to pass stool, nausea, vomiting and abdominal pain and cramping. She was not on a regular bowel program, but she had taken, MiraLax, lactulose glycerin suppositories and enemas over the 48 hours prior to admission without significant movement. She passed small tiny amounts. She did not really report much in the way of bloating. She had no fevers or chills. She had no dysuria or hematuria. She did have a very large bowel movement after being admitted to the hospital. PAST MEDICAL HISTORY: 1. Metastatic colon cancer. 2. Arthritis. PAST SURGICAL HISTORY: 1. Hysterectomy. 2. A&P repair. 3. Cataract surgery. 4. Tonsillectomy. ALLERGIES: 1. PENICILLIN. 2. NSAIDS. MEDICATIONS: Reported medications on arrival: 1. Zoloft. 2. Flonase. 3. Trazodone. 4. Tramadol. 5. Hydrochlorothiazide. 6. Gabapentin. 7. Synthroid. 8. Lactulose p.r.n. 9. Senna p.r.n. REVIEW OF SYSTEMS: Negative for headaches, lightheadedness, fevers, chills, shortness of breath, dysuria, hematuria, difficulty with mood or mentation or difficulty with mobility. Positive for nausea, vomiting, abdominal pain and constipation. PHYSICAL EXAMINATION: GENERAL: This is a well-developed, well-nourished female, who appears comfortable. NEUROLOGIC: Grossly intact. SKIN: Warm and dry. HEENT: Head is normocephalic, atraumatic. NECK: Trachea is midline. CARDIOVASCULAR: Regular rate. CHEST: Breathing is symmetric bilaterally, nonlabored. ABDOMEN: Soft, nondistended. There is no rebound or guarding. She does have some mild pain on palpation on the left side of the abdomen. EXTREMITIES: Reveal no edema. LABORATORY DATA: On admission, showed a white count of 8.1, hemoglobin 12.2, platelets of 314. Chemistry: Sodium 140, potassium 3.8, chloride is 102, bicarbonate of 31.1, BUN is 9, creatinine is 0.46, glucose is 112. AST is mildly elevated at 47, alkaline phosphatase of 220. Albumin is low at 3.0. Urinalysis did show moderate bacteria and has been sent for culture. A CT scan revealed a large stool burden in the transverse colon and inflammatory changes around the distal transverse colon consistent with her previous tumor as well as a large tumor burden in the liver. IMPRESSION: Partial obstruction and obstipation secondary to a large near obstructing tumor in the distal transverse colon. We will get her hydrated up and give her some mild laxative to see if we can get the stool moving through and Dr. Glasgow will be here tomorrow and they will have to decide whether they will attempt another round of chemotherapy versus a proximal diversion. MD GOKUL Mae/DALJIT , 11:27 AM , 11:56 AM
[2018-03-09] MEDS: LEVOTHYROXINE SODIUM 100 MCG TAB PO SCH (12:30)
[2018-03-09] MEDS: D5-NS + KCL 20 MEQ INJ 1,000 ML IV SCH ×2 (14:19→22:44)
[2018-03-09] MEDS: POLYETHYLENE GLYCOL 17 GM PKG PO SCH (14:33)
[2018-03-09 18:30] VITALS: BP 174/94; PULSE 80; RESP 16; TEMP 98.6; O2SAT 96
[2018-03-09 20:00] VITALS: BP 170/76; PULSE 77; RESP 16; TEMP 98.1; O2SAT 98
[2018-03-09] MEDS: cloNIDine HCL 0.1 MG TAB PO PRN (20:52)
[2018-03-09] MEDS: FLUTICASONE PROPIONATE 50 MCG/ACT 16 GM NASAL SPRAY EACH NARE SCH (20:52)
[2018-03-09] MEDS: FAMOTIDINE 20 MG/2 ML VIAL IV SCH (20:52)
[2018-03-09] MEDS: GABAPENTIN 300 MG CAP PO SCH (20:52)
[2018-03-09] MEDS: traZODone HCL 50 MG TAB PO SCH (22:40)
[2018-03-10] VITALS: BP 137/84; PULSE 76; RESP 16; TEMP 98; O2SAT 100
[2018-03-10] MEDS: LEVOFLOXACIN 500 MG PREMIX INJ 100 ML IV SCH (03:48)
[2018-03-10 04:00] VITALS: BP 116/64; PULSE 87; RESP 16; TEMP 98.2; O2SAT 97
[2018-03-10] MEDS: LEVOTHYROXINE SODIUM 100 MCG TAB PO SCH (05:12)
[2018-03-10] MEDS: metroNIDAZOLE 500 MG INJ 100 ML IV SCH ×2 (05:12→13:45)
[2018-03-10 08:47] VITALS: BP 154/82; PULSE 86; RESP 18; TEMP 98; O2SAT 97
[2018-03-10] MEDS: FLUTICASONE PROPIONATE 50 MCG/ACT 16 GM NASAL SPRAY EACH NARE SCH ×2 (08:54→21:00)
[2018-03-10] MEDS: FAMOTIDINE 20 MG/2 ML VIAL IV SCH (08:54)
[2018-03-10] MEDS: POLYETHYLENE GLYCOL 17 GM PKG PO SCH (08:54)
[2018-03-10] MEDS: D5-NS + KCL 20 MEQ INJ 1,000 ML IV SCH ×2 (08:55→10:42)
[2018-03-10 12:22] VITALS: BP 146/84; PULSE 84; RESP 18; TEMP 97.8; O2SAT 96
--- NOTE | 2018-03-10 13:47 | HHI.PR ---
Subjective Remarks Denies abdominal pain c/o edema in lower extremities no n/v multiple BM's last night Planes of heartburn and reflux symptoms. Objective Vitals Vital Signs Date Time Temp Pulse Resp B/P (MAP) Pulse Ox O2 Delivery O2 Flow Rate FiO2 03/10/18 12:22 97.8 84 18 146/84 (104) 96 03/10/18 08:47 98.0 86 18 154/82 (106) 97 03/10/18 04:00 98.2 87 16 116/64 (81) 97 03/10/18 00:00 98.0 76 16 137/84 (101) 100 03/09/18 20:00 98.1 77 16 170/76 (107) 98 03/09/18 18:30 98.6 80 16 174/94 (120) 96 I/O 03/09/18 03/09/18 03/09/18 03/10/18 03/10/18 03/10/18 07:00 15:00 23:00 07:00 15:00 23:00 Intake Total 800 ml 1000 ml 1940 ml 560 ml 1240 ml Balance 800 ml 1000 ml 1940 ml 560 ml 1240 ml Intake Oral 840 ml 360 ml 240 ml IV Total 800 ml 1000 ml 1100 ml 200 ml 1000 ml # Voids 1 7 3 # Bowel Movements 2 Result Diagram: 03/09/18 0010 03/09/18 0010 Imaging Last Impressions Abdomen/Pelvis CT 03/08/182257 Signed Impressions: Service Date/Time: Friday, March 09, 2018 01:42 - CONCLUSION: 1. Acute colitis likely related to diverticulitis. 2. Constipation. 3. No free air or free fluid. 4. Metastatic disease to the liver is stable in appearance from the prior CT. Sebastien Dunlap Jr., MD Abdomen X-Ray 03/08/182257 Signed Impressions: Service Date/Time: Thursday, March 08, 2018 23:17 - CONCLUSION: Constipation. Sebastien Dunlap Jr., MD Objective Remarks AAOx3 Clear ungs Bl S1S2 RRR abdomen with + bowel sounds, soft, non tender mild edema in BL foot Medications and IVs Current Medications Medications (Trade) Dose Ordered Sig/Ondina Route Start Time Stop Time Status Last Admin (NS Flush) 2 ml UNSCH PRN IV FLUSH 03/08/18 23:00 (Miralax) 17 gm DAILY PO 03/09/18 11:30 03/10/18 08:54 (Neurontin) 600 mg HS PO 03/09/18 21:00 03/09/18 20:52 (Synthroid) 100 mcg DAILY@0600 PO 03/09/18 12:30 03/10/18 05:12 (Flonase Andrea Spr) 1 spray BID EACH NARE 03/09/18 21:00 03/10/18 08:54 (Catapres) 0.1 mg Q6H PRN PO 03/09/18 19:45 03/09/18 20:52 (Desyrel) 75 mg HS PO 03/09/18 22:00 03/09/18 22:40 (Hydrodiuril) 25 mg DAILY PO 03/11/18 09:00 (Senokot) 17.2 mg Q12H PRN PO 03/10/18 14:00 (Zoloft) 100 mg DAILY PO 03/10/18 14:00 03/10/18 14:49 (Protonix) 40 mg DAILY PO 03/10/18 15:30 03/10/18 15:30 (Mag-Al Plus Susp Liq) 30 ml Q6H PRN PO 03/10/18 15:30 (Reglan Inj) 10 mg Q8HR IV PUSH 03/10/18 17:45 A/P Problem List: (1) Partial bowel obstruction ICD Code: K56.600 - Partial intestinal obstruction, unspecified as to cause (2) Abdominal pain ICD Code: R10.9 - Unspecified abdominal pain Status: Acute (3) Nausea & vomiting ICD Code: R11.2 - Nausea with vomiting, unspecified Status: Acute (4) Metastatic colon cancer in female ICD Code: C78.5 - Secondary malignant neoplasm of large intestine and rectum Status: Acute (5) Edema ICD Code: R60.9 - Edema, unspecified Assessment and Plan Partial small bowel obstruction secondary to a large near obstructing tumor in the distal transverse colon. Status post laxative treatment and colorectal surgery Dr. Glasgow consulted. Abdominal obstruction seems to be improving with patient having had several bowel movements. Continue to monitor. Advance diet as tolerated as per colorectal surgery recommendations. Add heparin subcutaneously for DVT prophylaxis. DC IV Pepcid and start the patient on oral pantoprazole and Maalox as needed for reflux symptoms. UA positive, however urine culture concurrent with contamination. Continue Reglan for nausea and vomiting. Resume patient's home hydrochlorthiazide for edema, DC IV fluids Continue levothyroxine for hypothyroidism which seems to be stable. Check TSH if not previously done. Discharge Planning Discharge pending colorectal surgery clearance. Tom Liu MD Mar 10, 2018 13:47
[2018-03-10] MEDS ORDERED: SENNOSIDES 8.6 MG TAB PO PRN (14:00)
[2018-03-10] MEDS ORDERED: HYDROCHLOROTHIAZIDE 25 MG TAB PO ONE (14:30)
[2018-03-10] MEDS: SERTRALINE HCL 50 MG TAB PO SCH (14:49)
[2018-03-10 15:30] VITALS: BP 158/79; PULSE 87; RESP 18; TEMP 97.3; O2SAT 96
[2018-03-10] MEDS ORDERED: ALUMINUM/MAGNESIUM/SIMETH 30 ML CUP PO PRN (15:30)
[2018-03-10] MEDS ORDERED: ALUMINUM/MAGNESIUM/SIMETH 30 ML CUP PO ONE (15:30)
[2018-03-10] MEDS: PANTOPRAZOLE SOD 40 MG DELAYED RELEASE TAB PO SCH (15:30)
--- NOTE | 2018-03-10 17:29 | HHI.PR ---
Subjective Remarks C/R Surg Afebrile, VSS c/o heartburn/reflux no N/v mult stools Objective - Vital Signs Date Time Temp Pulse Resp B/P (MAP) Pulse Ox O2 Delivery O2 Flow Rate FiO2 03/10/18 15:30 97.3 87 18 158/79 (105) 96 03/08/18 23:38 Room Air Result Diagram: 03/09/18 0010 03/09/18 0010 Objective Remarks PE alert ABD - SOFT, +TYMPANY, NON-TENDER A/P Assessment and Plan Imp: Ca splenic flesure with liver mets s/p chemotherapy high degree of obstruction from colonoscopy see if she can cont without colostomy, or resection of tumor Faizan Glasgow MD Mar 10, 2018 17:29
[2018-03-10] MEDS: METOCLOPRAMIDE HCL 10 MG/2 ML VIAL IV PUSH SCH ×2 (18:24→21:50)
[2018-03-10 20:00] VITALS: BP 161/93; PULSE 81; RESP 16; TEMP 98.7; O2SAT 99
[2018-03-10] MEDS: SODIUM CHLORIDE 0.9% FLUSH 10 ML FLUSH IV FLUSH PRN (21:01)
[2018-03-10] MEDS: traZODone HCL 50 MG TAB PO SCH (21:03)
[2018-03-10] MEDS: GABAPENTIN 300 MG CAP PO SCH (21:04)
[2018-03-10] MEDS: cloNIDine HCL 0.1 MG TAB PO PRN (21:07)
[2018-03-10] MEDS: HEPARIN SODIUM - SQ 10,000 UNITS/ML VIAL SQ SCH (21:50)
[2018-03-11] VITALS: BP 111/57; PULSE 77; RESP 18; TEMP 98.4; O2SAT 99
--- NOTE | 2018-03-11 02:15 | PD.CONS ---
HPI Service [facility] Consult Requested By Dr Glasgow. Primary Care Physician Non-Staff Diagnoses: (1) Partial bowel obstruction (2) Abdominal pain (3) Nausea & vomiting (4) Metastatic colon cancer in female (5) Edema History of Present Illness Deferred entry - Patient seen on 03/10 This is a 73-year-old female with past medical history significant for prostatic colon cancer. The patient was recently diagnosed with a partially obstructing distal transverse colon cancer multiple metastases to the liver. The patient decided to try for chemotherapy rather than surgery since she was found to have a large disease burden in the liver. As per colorectal surgery notes the patient just completed her first dose of chemotherapy when she began having failure to pass stool, nausea, vomiting and abdominal pain and cramping. The patient was on a regular bowel program at the time had taken MiraLAX, lactulose, glycerin suppositories and enemas over the 48 hours prior to presentation to the hospital. The patient at the time of interview had passed gas and had a bowel movement. Patient denies chest pain, shortness of breath, fevers, chills. Patient also denied abdominal pain, nausea or vomiting. The patient was only complaining of heartburn and reflux symptoms. Review of Systems As per HPI, other systems reviewed by me and negative. Past Family Social History Allergies: Coded Allergies: penicillin G (Verified Allergy, Severe, Anaphylaxis, 03/08/18) Uncoded Allergies: NSAIDS (Allergy, Severe, SWELLING, 01/18/18) Past Medical History 1. Metastatic lung cancer. 2. Arthritis. Past Surgical History 1. Hysterectomy. 2. A and P repair. 3. Cataract surgery. 4. Tonsillectomy. Reported Medications Reported Meds & Active Scripts Active Senna-Lax (Sennosides) 8.6 Mg Tab 17.2 Mg PO Q12H PRN [Lactulose Liq] 30 ML Syrp 30 Ml PO DAILY PRN Zoloft (Sertraline HCl) 50 Mg Tab 100 Mg PO DAILY Flonase Nasal Foster (Fluticasone Nasal Foster) 50 Mcg/Act Foster 50 Mcg EACH NARE BID Trazodone (Trazodone HCl) 150 Mg Tablet 75 Mg PO HS Tramadol (Tramadol HCl) 50 Mg Tab 50 Mg PO Q4H PRN Hydrochlorothiazide 25 Mg Tab 25 Mg PO DAILY PRN Gabapentin 600 Mg Tab 600 Mg PO HS Synthroid (Levothyroxine Sodium) 100 Mcg Tab 100 Mcg PO DAILY Reported Flexeril (Cyclobenzaprine HCl) 5 Mg Tab 5 Mg PO Q8HR Active Ordered Medications Current Medications Medications (Trade) Dose Ordered Sig/Ondina Route Start Time Stop Time Status Last Admin (NS Flush) 2 ml UNSCH PRN IV FLUSH 03/08/18 23:00 03/10/18 21:01 (Miralax) 17 gm DAILY PO 03/09/18 11:30 03/10/18 08:54 (Neurontin) 600 mg HS PO 03/09/18 21:00 03/10/18 21:04 (Synthroid) 100 mcg DAILY@0600 PO 03/09/18 12:30 03/10/18 05:12 (Flonase Andrea Spr) 1 spray BID EACH NARE 03/09/18 21:00 03/10/18 21:00 (Catapres) 0.1 mg Q6H PRN PO 03/09/18 19:45 03/10/18 21:07 (Desyrel) 75 mg HS PO 03/09/18 22:00 03/10/18 21:03 (Hydrodiuril) 25 mg DAILY PO 03/11/18 09:00 (Senokot) 17.2 mg Q12H PRN PO 03/10/18 14:00 (Zoloft) 100 mg DAILY PO 03/10/18 14:00 03/10/18 14:49 (Protonix) 40 mg DAILY PO 03/10/18 15:30 03/10/18 15:30 (Mag-Al Plus Susp Liq) 30 ml Q6H PRN PO 03/10/18 15:30 (Reglan Inj) 10 mg Q8HR IV PUSH 03/10/18 17:45 03/10/18 18:24 (Heparin Inj) 5,000 units Q8HR SQ 03/10/18 22:00 Physical Exam Vital Signs Vital Signs Date Time Temp Pulse Resp B/P (MAP) Pulse Ox O2 Delivery O2 Flow Rate FiO2 03/11/18 00:00 98.4 77 18 111/57 (75) 99 03/10/18 20:00 98.7 81 16 161/93 (115) 99 03/10/18 15:30 97.3 87 18 158/79 (105) 96 03/10/18 12:22 97.8 84 18 146/84 (104) 96 03/10/18 08:47 98.0 86 18 154/82 (106) 97 03/10/18 04:00 98.2 87 16 116/64 (81) 97 Physical Exam GENERAL: This is a well-nourished, well-developed patient, in no apparent distress. SKIN: No rashes, ecchymoses or lesions. Cool and dry. HEAD: Atraumatic. Normocephalic. No temporal or scalp tenderness. EYES: Pupils equal round and reactive. Extraocular motions intact. No scleral icterus. No injection or drainage. ENT: Nose without bleeding, purulent drainage or septal hematoma. Throat without erythema, tonsillar hypertrophy or exudate. Uvula midline. Airway patent. NECK: Trachea midline. No JVD or lymphadenopathy. Supple, nontender, no meningeal signs. CARDIOVASCULAR: Regular rate and rhythm without murmurs, gallops, or rubs. RESPIRATORY: Clear to auscultation. Breath sounds equal bilaterally. No wheezes , rales, or rhonchi. GASTROINTESTINAL: Abdomen soft, non-tender, nondistended. No hepato-splenomegaly , or palpable masses. No guarding. MUSCULOSKELETAL: Extremities without clubbing, cyanosis, or edema. No joint tenderness, effusion, or edema noted. No calf tenderness. Negative Homans sign bilaterally. NEUROLOGICAL: Awake and alert. Cranial nerves II through XII intact. Motor and sensory grossly within normal limits. Five out of 5 muscle strength in all muscle groups. Normal speech. Laboratory Date/Time Source Procedure Growth Status 03/09/18 02:45 Urine Clean Catch Urine Culture - Final 10-50,000 CFU/ML MIXED KARLENE... Complete Result Diagram: 03/09/18 0010 03/09/18 0010 Imaging Last Impressions Abdomen/Pelvis CT 03/08/182257 Signed Impressions: Service Date/Time: Friday, March 09, 2018 01:42 - CONCLUSION: 1. Acute colitis likely related to diverticulitis. 2. Constipation. 3. No free air or free fluid. 4. Metastatic disease to the liver is stable in appearance from the prior CT. Sebastien Dunlap Jr., MD Abdomen X-Ray 03/08/182257 Signed Impressions: Service Date/Time: Thursday, March 08, 2018 23:17 - CONCLUSION: Constipation. Sebastien Dunlap Jr., MD Assessment and Plan Problem List: (1) Partial bowel obstruction ICD Code: K56.600 - Partial intestinal obstruction, unspecified as to cause (2) Abdominal pain ICD Code: R10.9 - Unspecified abdominal pain Status: Acute (3) Nausea & vomiting ICD Code: R11.2 - Nausea with vomiting, unspecified Status: Acute (4) Metastatic colon cancer in female ICD Code: C78.5 - Secondary malignant neoplasm of large intestine and rectum Status: Acute (5) Edema ICD Code: R60.9 - Edema, unspecified Tom Liu MD Mar 11, 2018 02:15
[2018-03-11 04:00] VITALS: BP 120/63; PULSE 83; RESP 18; TEMP 97.2; O2SAT 92
[2018-03-11] MEDS: LEVOTHYROXINE SODIUM 100 MCG TAB PO SCH (05:55)
[2018-03-11] MEDS: SODIUM CHLORIDE 0.9% FLUSH 10 ML FLUSH IV FLUSH PRN (05:57)
[2018-03-11] MEDS: METOCLOPRAMIDE HCL 10 MG/2 ML VIAL IV PUSH SCH ×2 (05:57→14:02)
[2018-03-11] MEDS: HEPARIN SODIUM - SQ 10,000 UNITS/ML VIAL SQ SCH ×2 (05:57→13:57)
[2018-03-11 06:17] LABS: AUTOMATED NEUTROPHIL # 3.1 TH/MM3 (1.8-7.7); BASOPHIL % 0.8 % (0.0-2.0); EOSINOPHIL # 0.4 TH/MM3 (0-0.4); EOSINOPHIL % 6.3 % (0.0-4.0); HEMOGLOBIN 10.4 GM/DL (11.6-15.3); LYMPH % 29.5 % (9.0-44.0); LYMPHOCYTE # 1.7 TH/MM3 (1.0-4.8); MEAN CELL VOLUME 79.2 FL (80.0-100.0); MEAN CORPUSCULAR HEMOGLOBIN 25.6 PG (27.0-34.0); MEAN CORPUSCULAR HGB CONC 32.3 % (32.0-36.0); MEAN PLATELET VOLUME 7.8 FL (7.0-11.0); MONO % 9.8 % (0.0-8.0); MONOCYTE # 0.6 TH/MM3 (0-0.9); NEUT % 53.6 % (16.0-70.0); PLATELET COUNT 269 TH/MM3 (150-450); RED BLOOD COUNT 4.05 MIL/MM3 (4.00-5.30); RED CELL DISTRIBUTION WIDTH 16.3 % (11.6-17.2); WHITE BLOOD COUNT 5.7 TH/MM3 (4.0-11.0)
[2018-03-11 06:44] LABS: ALBUMIN 2.7 GM/DL (3.4-5.0); ALKALINE PHOSPHATASE 157 U/L (45-117); ALT (GPT) 30 U/L (10-53); AST (GOT) 35 U/L (15-37); BICARBONATE 30.5 MEQ/L (21.0-32.0); BLOOD UREA NITROGEN 4 MG/DL (7-18); CALCIUM 8.2 MG/DL (8.5-10.1); CHLORIDE 108 MEQ/L (98-107); CREATININE 0.48 MG/DL (0.50-1.00); GLOMERULAR FILTRATION RATE 127 ML/MIN (>89); GLUCOSE,RANDOM 102 MG/DL (74-106); PHOSPHORUS 2.9 MG/DL (2.5-4.9); SODIUM (NA) 146 MEQ/L (136-145); TOTAL BILIRUBIN ADULT 0.2 MG/DL (0.2-1.0); TOTAL PROTEIN 5.3 GM/DL (6.4-8.2)
[2018-03-11 07:41] VITALS: BP 159/91; PULSE 78; RESP 18; TEMP 98.3; O2SAT 95
[2018-03-11] MEDS: PANTOPRAZOLE SOD 40 MG DELAYED RELEASE TAB PO SCH (07:44)
[2018-03-11] MEDS: SERTRALINE HCL 50 MG TAB PO SCH (07:44)
[2018-03-11] MEDS: POLYETHYLENE GLYCOL 17 GM PKG PO SCH (07:44)
[2018-03-11] MEDS: FLUTICASONE PROPIONATE 50 MCG/ACT 16 GM NASAL SPRAY EACH NARE SCH (07:47)
--- NOTE | 2018-03-11 08:24 | RADRPT ---
EXAM DATE/TIME: 03/11/2018 08:01 [facility] COMPARISON: No previous studies available for comparison. INDICATIONS : Abdominal pain, evaluate obstruction MEDICAL HISTORY : Carcinoma, colon. Hypothyroidism. Congestive heart failure. SURGICAL HISTORY : Tonsillectomy. Hysterectomy. Infusa port.Bilateral feet hammertoe repair. Lt ENCOUNTER: Subsequent ACUITY: 4 - 6 days PAIN SCORE: 10/10 LOCATION: Bilateral abdomen FINDINGS: Supine and upright views of the abdomen were performed. Air and moderate stool seen throughout the co john. There are no dilated small bowel loops. No air fluid levels are seen. Calcifications in the pelv is likely reflect phleboliths. The visualized lower lungs are clear. No evidence of free intraperito gloria gas. The osseous structures are unremarkable. CONCLUSION: 1. Moderate stool throughout the colon consistent with some degree of constipation. 2. Otherwise, nonobstructive bowel gas pattern. Andrea Vasquez MD on March 11, 2018 at 8:19 Board Certified Radiologist. This report was verified electronically.
[2018-03-11] MEDS ORDERED: HYDROCHLOROTHIAZIDE 25 MG TAB PO SCH (09:00)
[2018-03-11 11:57] VITALS: BP 155/89; PULSE 74; RESP 18; TEMP 98.6; O2SAT 97
[2018-03-11 15:37] VITALS: BP 128/72; PULSE 74; RESP 18; TEMP 98.3; O2SAT 99
--- NOTE | 2018-03-11 16:10 | HHI.PR ---
Subjective Remarks Patient states is tolerating soft diet. Patient states she had several bowel movements. Patient is a febrile. Objective Vitals Vital Signs Date Time Temp Pulse Resp B/P (MAP) Pulse Ox O2 Delivery O2 Flow Rate FiO2 03/11/18 15:37 98.3 74 18 128/72 (90) 99 03/11/18 11:57 98.6 74 18 155/89 (111) 97 03/11/18 07:41 98.3 78 18 159/91 (113) 95 03/11/18 04:00 97.2 83 18 120/63 (82) 92 03/11/18 00:00 98.4 77 18 111/57 (75) 99 03/10/18 20:00 98.7 81 16 161/93 (115) 99 I/O 03/10/18 03/10/18 03/10/18 03/11/18 03/11/18 03/11/18 07:00 15:00 23:00 07:00 15:00 23:00 Intake Total 560 ml 1240 ml 1920 ml 480 ml Balance 560 ml 1240 ml 1920 ml 480 ml Intake Oral 360 ml 240 ml 1920 ml 480 ml IV Total 200 ml 1000 ml # Voids 3 5 3 # Bowel Movements 2 Result Diagram: 03/11/18 0550 03/11/18 0530 Imaging Last Impressions Abdomen X-Ray 03/11/18 0600 Signed Impressions: Service Date/Time: Sunday, March 11, 2018 08:01 - CONCLUSION: 1. Moderate stool throughout the colon consistent with some degree of constipation. 2. Otherwise, nonobstructive bowel gas pattern. Andrea Vasquez MD Abdomen/Pelvis CT 03/08/18 0892 Signed Impressions: Service Date/Time: Friday, March 09, 2018 01:42 - CONCLUSION: 1. Acute colitis likely related to diverticulitis. 2. Constipation. 3. No free air or free fluid. 4. Metastatic disease to the liver is stable in appearance from the prior CT. Sebastien Dunlap Jr., MD Objective Remarks AAOx3 Clear ungs Bl S1S2 RRR abdomen with + bowel sounds, soft, non tender mild edema in BL foot Medications and IVs Current Medications Medications (Trade) Dose Ordered Sig/Ondina Route Start Time Stop Time Status Last Admin (NS Flush) 2 ml UNSCH PRN IV FLUSH 03/08/18 23:00 03/11/18 05:57 (Miralax) 17 gm DAILY PO 03/09/18 11:30 03/11/18 07:44 (Neurontin) 600 mg HS PO 03/09/18 21:00 03/10/18 21:04 (Synthroid) 100 mcg DAILY@0600 PO 03/09/18 12:30 03/11/18 05:55 (Flonase Andrea Spr) 1 spray BID EACH NARE 03/09/18 21:00 03/10/18 21:00 (Catapres) 0.1 mg Q6H PRN PO 03/09/18 19:45 03/10/18 21:07 (Desyrel) 75 mg HS PO 03/09/18 22:00 03/10/18 21:03 (Hydrodiuril) 25 mg DAILY PO 03/11/18 09:00 (Senokot) 17.2 mg Q12H PRN PO 03/10/18 14:00 (Zoloft) 100 mg DAILY PO 03/10/18 14:00 03/11/18 07:44 (Protonix) 40 mg DAILY PO 03/10/18 15:30 03/11/18 07:44 (Mag-Al Plus Susp Liq) 30 ml Q6H PRN PO 03/10/18 15:30 (Reglan Inj) 10 mg Q8HR IV PUSH 03/10/18 17:45 03/11/18 14:02 (Heparin Inj) 5,000 units Q8HR SQ 03/10/18 22:00 A/P Problem List: (1) Partial bowel obstruction ICD Code: K56.600 - Partial intestinal obstruction, unspecified as to cause (2) Abdominal pain ICD Code: R10.9 - Unspecified abdominal pain Status: Acute (3) Nausea & vomiting ICD Code: R11.2 - Nausea with vomiting, unspecified Status: Acute (4) Metastatic colon cancer in female ICD Code: C78.5 - Secondary malignant neoplasm of large intestine and rectum Status: Acute (5) Edema ICD Code: R60.9 - Edema, unspecified Assessment and Plan Partial small bowel obstruction secondary to a large near obstructing tumor in the distal transverse colon. Status post laxative treatment and colorectal surgery Dr. Glasgow consulted. Abdominal obstruction seems to be improving with patient having had several bowel movements. Continue to monitor. Advance diet as tolerated as per colorectal surgery recommendations. heparin subcutaneously for DVT prophylaxis. DC IV Pepcid and start the patient on oral pantoprazole and Maalox as needed for reflux symptoms -reflux symptoms much improved. UA positive, however urine culture concurrent with contamination -DC antibiotics Continue Reglan for nausea and vomiting. Resume patient's home hydrochlorthiazide for edema, DC IV fluids Continue levothyroxine for hypothyroidism which seems to be stable. Check TSH if not previously done. Discharge Planning Discharge pending colorectal surgery clearance. Tom Liu MD Mar 11, 2018 16:10
--- NOTE | 2018-03-11 17:28 | HHI.PR ---
Subjective Remarks C/R Surg Afebrile, VSS c/o heartburn/reflux - better no N/v mult stools, slowing Objective - Vital Signs Date Time Temp Pulse Resp B/P (MAP) Pulse Ox O2 Delivery O2 Flow Rate FiO2 03/11/18 15:37 98.3 74 18 128/72 (90) 99 03/08/18 23:38 Room Air Result Diagram: 03/11/18 0550 03/11/18 0530 Objective Remarks PE alert ABD - SOFT, +TYMPANY, NON-TENDER A/P Assessment and Plan Imp: Ca splenic flesure with liver mets s/p chemotherapy high degree of obstruction from colonoscopy see if she can cont without colostomy, or resection of tumor - pt frantz PO , wants to try avoiding stoma Faizan Glasgow MD Mar 11, 2018 17:27
[2018-03-11] MEDS ORDERED: SODIUM CHLORIDE 0.9% FLUSH 10 ML FLUSH IV FLUSH PRN (18:45)
== END 2018-03-11 19:34 | disposition home or self-care (01) | DRG 389 ==
LOC: NEPE 22:34 → NEDA 03-09 02:47 → HCIN 03-09 03:57
PROVIDERS: ADMIT Colon & Rectal Surgery; ATTEND Colon & Rectal Surgery
DX: K56.690 Other partial intestinal obstruction (principal); C78.5 Secondary malignant neoplasm of large intestine and rectum; C78.7 Secondary malignant neoplasm of liver and intrahepatic bile duct; K57.92 Diverticulitis of intestine, part unspecified, without perforation or abscess without bleeding; R60.9 Edema, unspecified; M19.90 Unspecified osteoarthritis, unspecified site; E03.9 Hypothyroidism, unspecified; K21.9 Gastro-esophageal reflux disease without esophagitis; Z92.21 Personal history of antineoplastic chemotherapy; Z85.038 Personal history of other malignant neoplasm of large intestine; Z85.118 Personal history of other malignant neoplasm of bronchus and lung
CPT/HCPCS: 74018; 74019; 74177; 80053; 81001; 83605; 83690; 83735; 84100; 84443; 85025; 87086; 96361; 96374; J0500; J1642; J1956; J2405; J2765; J3480; J7030; Q9963; Q9967

== ENCOUNTER 2018-08-12 01:02 | Inpatient (IN) ==
[2018-08-12] MEDS ORDERED: Sod Chloride 0.9% Inj 1,000 ML IV.SIG ONE (01:39)
--- NOTE | 2018-08-12 02:03 | XR ---
EXAM DATE: 08/12/2018 1:59 AM EDT AGE/SEX: 73 years / Female INDICATIONS: Cough. CLINICAL DATA: This is the patient's initial encounter. Patient reports that signs and symptoms have been present for 4 - 6 days and indicates a pain score of 0/10. MEDICAL/SURGICAL HISTORY: . Congestive heart failure. Hypothyroidism. Skin cancer. . Hysterec peter. Tonsillectomy. Port placement. COMPARISON: [facility], CHEST SINGLE AP, 01/18/2018. . FINDINGS: Single AP view the chest. Right-sided [id number] is in place with the tip at the cavoatrial juncti on. Elevation of right hemidiaphragm unchanged. Subsegmental atelectasis or scarring again seen at th e lung bases. Lungs otherwise clear. No evidence of pleural effusion or pneumothorax. Cardiomediastin al silhouette within normal limits. CONCLUSION: No acute cardiopulmonary disease identified. Electronically signed by: Be Dueñas MD 08/12/2018 2:02 AM EDT
[2018-08-12 02:35] LABS: Baso # (Auto) 0.1 th/mm3 (0.0-0.2); Baso % (Auto) 0.4 % (0.0-2.0); Eos % (Auto) 0.1 % (0.0-4.0); Hemoglobin 11.7 gm/dL (11.6-15.3); Lymph # (Auto) 0.8 th/mm3 (1.0-4.8); Lymph % (Auto) 5.2 % (9.0-44.0); Mean Corpuscular HGB Conc 32.6 % (32.0-36.0); Mean Corpuscular Hemoglobin 26.9 pg (27.0-34.0); Mean Corpuscular Volume 82.5 fL (80.0-100.0); Mono # (Auto) 1.3 th/mm3 (0.0-0.9); Mono % (Auto) 8.2 % (0.0-8.0); Neut # (Auto) 13.3 th/mm3 (1.8-7.7); Neut % (Auto) 86.1 % (16.0-70.0); Platelet Count 411 th/mm3 (150-450); Red Blood Count 4.36 mil/mm3 (4.00-5.30); Red Cell Distribution Width 19.9 % (11.6-17.2); White Blood Count 15.4 th/mm3 (4.0-11.0)
[2018-08-12 02:42] LABS: Activated Partial Thrombo Time 25.7 sec (24.3-30.1); INR 1.2 Ratio
[2018-08-12 02:58] LABS: Alanine Aminotransferase 31 U/L (10-53); Albumin 2.3 g/dL (3.4-5.0); Anion Gap 12 meq/L (5-15); Aspartate Aminotransferase 71 U/L (15-37); Blood Urea Nitrogen 7 mg/dL (7-18); Calcium 7.6 mg/dL (8.5-10.1); Carbon Dioxide 25.7 meq/L (21.0-32.0); Chloride 100 meq/L (98-107); Glomerular Filtration Rate Greater Than 89 mL/min (>89); Glucose,Random 126 mg/dL (74-106); Lipase 72 U/L (73-393); Potassium 3.1 meq/L (3.5-5.1); Sodium 138 meq/L (136-145)
[2018-08-12 03:02] LABS: Alkaline Phosphatase 294 U/L (45-117); Creatine Kinase 131 U/L (26-192); Total Protein 5.8 g/dL (6.4-8.2)
[2018-08-12 03:17] LABS: Bacteria,Urine Occasional /hpf; Bilirubin,Urine Negative (Negative); Clarity,Urine Clear (Clear); Color,Urine Yellow (Yellw/Straw); Glucose,Urine (UA) Negative (Negative); Leukocyte Esterase,Urine Negative (Negative); Mucus,Urine Few /lpf (Occasional); Nitrite,Urine Negative (Negative); Specific Gravity,Urine 1.009 (1.002-1.035); Squamous Epithelial Cell,Urine 1 /hpf (0-5)
[2018-08-12] MEDS ORDERED: Morphine Inj 4 MG/ML Vial IV.PUSH ONE (03:26)
--- NOTE | 2018-08-12 03:45 | XR ---
EXAM DATE: 08/12/2018 3:36 AM EDT AGE/SEX: 73 years / Female INDICATIONS: Obstruction. CLINICAL DATA: This is the patient's initial encounter. Patient reports that signs and symptoms have been present for 1 day and indicates a pain score of 8/10. MEDICAL/SURGICAL HISTORY: Congestive heart failure. Hypothyroidism. Skin cancer. Hysterectom y. Tonsillectomy. Port placement. COMPARISON: [facility] [place], ABDOMEN FLAT & UPRIGHT, 03/11/2018. . FINDINGS: Supine and upright views of the abdomen were performed. Scattered gas in nondilated colon. Scattered gas in nondilated small bowel. Rounded calcifications in the pelvis likely represent phleboliths. No free air identified. Mild osteoarthritic findings of the hips. CONCLUSION: Nonspecific bowel gas pattern. Electronically signed by: Be Dueñas MD 08/12/2018 3:43 AM EDT
--- NOTE | 2018-08-12 03:51 | ED ---
HPI General Chief Complaint: Abdominal Pain Stated Complaint: Abd Time Seen by Provider: 08/12/18 01:37 Source: patient Limitations: no limitations History of Present Illness HPI narrative: The patient is a 73 year old female who presents to the [facility] emergency department with a history of abdominal pain that began 3-4 days ago. She reports that the pain is a sharp and cramping sensation that comes and goes every 5-10 minutes. She reports having associated nausea, vomiting x1 yesterday. She reports that she has not moved her bowels for the last 2 days, however prior to this she was moving her bowels daily. The patient 's history is complicated by having colon cancer with a colonic mass at the splenic flexure that on last colonoscopy was noted to be nearly obstructing the colon. She is followed by Dr. Glasgow for her colorectal care. The patient receives her chemotherapy from Dr. Malone, her oncologist. She last had chemotherapy 4 weeks ago. Initially, the patient was hesitant to have the colonic mass removed, however she reports that now the pain associate V her that she would not mind is much having a colostomy. On review of systems otherwise, the patient denies having any fevers this week, however she does report that last week she had a 3-4-day history of fevers, body aches, T-max of 101.2. She did see her oncologist regarding this and was treated with a one- week course of ciprofloxacin which she completed. Otherwise on review of systems, she denies having any cough, congestion, neck pain, chest pain, shortness of breath, urinary symptoms, or neurologic symptoms. Related Data Home Medications Medication Instructions Recorded Confirmed cyclobenzaprine 5 mg PO DAILY PRN 08/12/18 08/12/18 gabapentin 300 mg PO QPM 08/12/18 08/12/18 levothyroxine 100 mcg PO DAILY 08/12/18 08/12/18 sertraline [Zoloft] 100 mg PO DAILY 08/12/18 08/12/18 tramadol 50 mg PO Q4-6H PRN 08/12/18 08/12/18 trazodone 75 mg PO HS 08/12/18 08/12/18 Allergies Allergy/AdvReac Type Severity Reaction Status Date / Time penicillin G Allergy Severe Anaphylaxis Verified 08/12/18 02:07 NSAIDS Allergy Severe SWELLING Uncoded 08/12/18 01:06 Review of Systems ROS: all other systems reviewed are negative [facility] Medical History Medical History CHF (congestive heart failure) (Acute) Colon cancer (Acute) H/O: hysterectomy (Acute) History of chemotherapy (Acute) Hypothyroidism (Acute) Liver cancer (Acute) Surgical History Surgical History History of orthopedic surgery (Acute) History of tonsillectomy (Acute) Hx of cataract surgery (Acute) Family History Family History Grandparent Family history of colorectal cancer Social History Social History Substance History: Past History Second Hand Smoke Exposure: No Smoking Status: Former smoker Tobacco Type: Cigarettes How Often Do You Have a Drink Containing Alcohol: Monthly or less Recent Travel in [facility] within the Last 8 Weeks: No Recent Out of Country Travel within the Last 8 Weeks: No Immunization History Tetanus Immunization: >5 Years Hx Influenza Vaccine This Season: No Exam Const General: cooperative, no acute distress and well developed Nutritional Appearance: well nourished Orientation: alert, awake and oriented x3 HENMT Head: normocephalic and atraumatic Nose: no nasal discharge and no epistaxis Mouth: moist mucous membranes Throat: posterior oropharynx normal and uvula midline Eyes Sclera: normal sclerae Pupils: PERRL Neck Neck: no meningeal signs, trachea midline and no JVD Resp Effort & Inspection: no use of accessory muscles Auscultation: clear to auscultation bilaterally Cardio Rate: regular rate Rhythm: regular rhythm Heart Sounds: no murmurs GI Inspection: non-distended Palpation: soft, no hepatosplenomegaly, no guarding, not rigid and tender in the LLQ and in the RLQ; not in the epigastrum, not in the LUQ, not in the RUQ, not at McBurney's point, not periumbilically, not suprapubicly, Eaton's sign negative and with no rebound tenderness Auscultation: high-pitched sounds Back/Spine/Pelvis Back: no CVA tenderness Skin General: dry skin (warm) Neuro General: alert, awake, oriented x3 and other (Grossly nonfocal.) Speech: speech normal Motor: no movement abnormalities noted Extrem General: normal to inspection (2+ pulses in all 4 extremities. No calf tenderness on palpation.), no clubbing, no cyanosis and no edema Psych Mood: congruent mood Affect: normal affect Judgment: judgment good Course Consultations Consultation #1: The patient's case including history, pertinent physical examination findings, and laboratory studies were discussed with Dr. Lyles. It was agreed that the patient would be admitted to the hospitalist service. Initial Documented Vital Signs Temperature 98.2 F 08/12/18 01:06 Pulse Rate 102 H 08/12/18 01:06 Respiratory Rate 21 08/12/18 01:06 Blood Pressure 145/81 H 08/12/18 01:06 Pulse Oximetry 97 08/12/18 01:06 Last Documented Vital Signs Temperature 98.7 F 08/13/18 03:28 Pulse Rate 93 H 08/13/18 03:28 Respiratory Rate 16 08/13/18 03:28 Blood Pressure 169/90 H 08/13/18 03:28 Pulse Oximetry 94 L 08/13/18 03:28 Medical Decision Making MDM Narrative Medical decision making narrative: During the course of the patient's emergency department visit, the patient's history, examination, and differential diagnosis were reviewed with the patient. The patient was placed on a residential monitor with oximetry and frequent blood pressure monitoring. The patient had IV access obtained and blood work sent for analysis. A diagnostic evaluation was started regarding the patient's abdominal pain with a history of colon cancer. A call was placed out to the patient's colorectal surgeon, Dr. Glasgow. He requested that for imaging an abdominal flat and upright be done. He agreed that the patient should be made n.p.o. He will see the patient in consultation later today. The patient was initially provided pain medication and nausea medication. A white count of 15.4, hemoglobin 11.7, plateletsThe patient's diagnostic evaluation is remarkable for 411 with 86.1 neutrophils, PT 12, PTT 25.7, chemistries remarkable for BUN of 4, creatinine 0.42, calcium 7.8, AST 59, alk phos 266, lipase within normal limits, cardiac enzymes within normal limits. Urinalysis is unremarkable. The patient's results were discussed with the patient, including the plan of care. I explained that further testing and/ or monitoring is indicated based on the patient's history, examination, and/ or laboratory findings. Therefore, I recommended admission for additional evaluation. The patient expressed understanding and was agreeable with this plan. The patient was admitted to the hospital in stable condition and sent to a bed under the care of the [facility] service The patient's results were discussed with the patient, including the plan of care. I explained that further testing and/ or monitoring is indicated based on the patient's history, examination, and/ or laboratory findings. Therefore, I recommended admission for additional evaluation. The patient expressed understanding and was agreeable with this plan. The patient was admitted to the hospital in [-] condition and sent to a bed under the care of [-]. Medical Screen Exam Complete: Yes Emergency Medical Condition: Yes Differential Diagnosis Differential Diagnosis: Bowel perforation, versus bowel obstruction, versus ileus Medical Records Medical records reviewed: Yes I reviewed the patient's medical records. Lab Data Lab results reviewed: Yes I reviewed the patient's lab results. Result diagrams: 08/13/18 03:40 08/13/18 03:40 Lab Results 08/12/18 08/12/18 08/12/18 Range/Units 02:19 02:19 02:19 WBC 15.4 H (4.0-11.0) th/mm3 RBC 4.36 (4.00-5.30) mil/mm3 Hgb 11.7 (11.6-15.3) gm/dL Hct 36.0 (35.0-46.0) % MCV 82.5 (80.0-100.0) fL MCH 26.9 L (27.0-34.0) pg MCHC 32.6 (32.0-36.0) % RDW 19.9 H (11.6-17.2) % Plt Count 411 D (150-450) th/mm3 MPV 8.0 (7.0-11.0) fL Neut % (Auto) 86.1 H (16.0-70.0) % Lymph % (Auto) 5.2 L (9.0-44.0) % [place] % (Auto) 8.2 H (0.0-8.0) % Eos % (Auto) 0.1 (0.0-4.0) % Baso % (Auto) 0.4 (0.0-2.0) % Neut # (Auto) 13.3 H (1.8-7.7) th/mm3 Lymph # (Auto) 0.8 L (1.0-4.8) th/mm3 [place] # (Auto) 1.3 H (0.0-0.9) th/mm3 Eos # (Auto) 0.0 (0.0-0.4) th/mm3 Baso # (Auto) 0.1 (0.0-0.2) th/mm3 WBC Differential . Differential Comment Auto diff final PT 12.0 H (9.8-11.6) sec INR 1.2 Ratio APTT 25.7 (24.3-30.1) sec Sodium 138 (136-145) meq/L Potassium 3.1 L (3.5-5.1) meq/L Chloride 100 (98-107) meq/L Carbon Dioxide 25.7 (21.0-32.0) meq/L Anion Gap 12 (5-15) meq/L BUN 7 (7-18) mg/dL Creatinine 0.43 L (0.50-1.00) mg/dL Estimated GFR Greater than 89 (>89) mL/min Random Glucose 126 H (74-106) mg/dL Lactic Acid (0.4-2.0) mmol/L Calcium 7.6 L (8.5-10.1) mg/dL Magnesium (1.5-2.5) mg/dL Total Bilirubin 0.5 (0.2-1.0) mg/dL AST 71 H (15-37) U/L ALT 31 (10-53) U/L Alkaline Phosphatase 294 H (45-117) U/L Total Creatine Kinase 131 (26-192) U/L CK-MB (CK-2) Less than 1.0 (0.5-3.6) ng/mL Troponin I Less than 0.02 L (0.02-0.05) ng/mL Total Protein 5.8 L (6.4-8.2) g/dL Albumin 2.3 L (3.4-5.0) g/dL Lipase 72 L (73-393) U/L Urine Color (Yellw/Straw) Urine Clarity (Clear) Urine pH (5.0-8.5) Ur Specific [place] (1.002-1.035) Urine Protein (Neg-Trace) mg/dL Urine Glucose (UA) (Negative) mg/dL Urine Ketones (Negative) mg/dL Urine Occult Blood (Negative) Urine Nitrate (Negative) Urine Bilirubin (Negative) Urine Urobilinogen (Less than 2) mg/dL Ur Leukocyte Esterase (Negative) Urine WBC (0-5) /hpf Ur Squamous Epith Cells (0-5) /hpf Urine Bacteria (None) /hpf Urine Mucus (Occasional) /lpf Micro UA Comment Ur Microscopic Review Urine Culture Comments 08/12/18 08/12/18 08/12/18 Range/Units 02:19 02:19 02:54 WBC (4.0-11.0) th/mm3 RBC (4.00-5.30) mil/mm3 Hgb (11.6-15.3) gm/dL Hct (35.0-46.0) % MCV (80.0-100.0) fL MCH (27.0-34.0) pg MCHC (32.0-36.0) % RDW (11.6-17.2) % Plt Count (150-450) th/mm3 MPV (7.0-11.0) fL Neut % (Auto) (16.0-70.0) % Lymph % (Auto) (9.0-44.0) % [place] % (Auto) (0.0-8.0) % Eos % (Auto) (0.0-4.0) % Baso % (Auto) (0.0-2.0) % Neut # (Auto) (1.8-7.7) th/mm3 Lymph # (Auto) (1.0-4.8) th/mm3 [place] # (Auto) (0.0-0.9) th/mm3 Eos # (Auto) (0.0-0.4) th/mm3 Baso # (Auto) (0.0-0.2) th/mm3 WBC Differential Differential Comment PT (9.8-11.6) sec INR Ratio APTT (24.3-30.1) sec Sodium (136-145) meq/L Potassium (3.5-5.1) meq/L Chloride (98-107) meq/L Carbon Dioxide (21.0-32.0) meq/L Anion Gap (5-15) meq/L BUN (7-18) mg/dL Creatinine (0.50-1.00) mg/dL Estimated GFR (>89) mL/min Random Glucose (74-106) mg/dL Lactic Acid 1.3 (0.4-2.0) mmol/L Calcium (8.5-10.1) mg/dL Magnesium 1.6 (1.5-2.5) mg/dL Total Bilirubin (0.2-1.0) mg/dL AST (15-37) U/L ALT (10-53) U/L Alkaline Phosphatase (45-117) U/L Total Creatine Kinase (26-192) U/L CK-MB (CK-2) (0.5-3.6) ng/mL Troponin I (0.02-0.05) ng/mL Total Protein (6.4-8.2) g/dL Albumin (3.4-5.0) g/dL Lipase (73-393) U/L Urine Color Yellow (Yellw/Straw) Urine Clarity Clear (Clear) Urine pH 6.0 (5.0-8.5) Ur Specific [place] 1.009 (1.002-1.035) Urine Protein Negative (Neg-Trace) mg/dL Urine Glucose (UA) Negative (Negative) mg/dL Urine Ketones Trace H (Negative) mg/dL Urine Occult Blood Negative (Negative) Urine Nitrate Negative (Negative) Urine Bilirubin Negative (Negative) Urine Urobilinogen Less than 2 (Less than 2) mg/dL Ur Leukocyte Esterase Negative (Negative) Urine WBC 3 (0-5) /hpf Ur Squamous Epith Cells 1 (0-5) /hpf Urine Bacteria Occasional H (None) /hpf Urine Mucus Few H (Occasional) /lpf Micro UA Comment Culture not ind Ur Microscopic Review Not Reportable Urine Culture Comments Culture not ind 08/13/18 08/13/18 Range/Units 03:40 03:40 WBC 14.1 H (4.0-11.0) th/mm3 RBC 4.11 (4.00-5.30) mil/mm3 Hgb 11.0 L (11.6-15.3) gm/dL Hct 34.6 L (35.0-46.0) % MCV 84.2 (80.0-100.0) fL MCH 26.8 L (27.0-34.0) pg MCHC 31.8 L (32.0-36.0) % RDW 19.1 H (11.6-17.2) % Plt Count 385 (150-450) th/mm3 MPV 7.2 (7.0-11.0) fL Neut % (Auto) 83.8 H (16.0-70.0) % Lymph % (Auto) 7.2 L (9.0-44.0) % [place] % (Auto) 8.1 H (0.0-8.0) % Eos % (Auto) 0.5 (0.0-4.0) % Baso % (Auto) 0.4 (0.0-2.0) % Neut # (Auto) 11.8 H (1.8-7.7) th/mm3 Lymph # (Auto) 1.0 (1.0-4.8) th/mm3 [place] # (Auto) 1.1 H (0.0-0.9) th/mm3 Eos # (Auto) 0.1 (0.0-0.4) th/mm3 Baso # (Auto) 0.1 (0.0-0.2) th/mm3 WBC Differential . Differential Comment Auto diff final PT (9.8-11.6) sec INR Ratio APTT (24.3-30.1) sec Sodium 139 (136-145) meq/L Potassium 5.1 D (3.5-5.1) meq/L Chloride 103 (98-107) meq/L Carbon Dioxide 31.1 (21.0-32.0) meq/L Anion Gap 5 (5-15) meq/L BUN 4 L (7-18) mg/dL Creatinine 0.42 L (0.50-1.00) mg/dL Estimated GFR Greater than 89 (>89) mL/min Random Glucose 102 (74-106) mg/dL Lactic Acid (0.4-2.0) mmol/L Calcium 7.8 L (8.5-10.1) mg/dL Magnesium (1.5-2.5) mg/dL Total Bilirubin 0.3 (0.2-1.0) mg/dL AST 59 H (15-37) U/L ALT 25 (10-53) U/L Alkaline Phosphatase 266 H (45-117) U/L Total Creatine Kinase (26-192) U/L CK-MB (CK-2) (0.5-3.6) ng/mL Troponin I (0.02-0.05) ng/mL Total Protein 5.8 L (6.4-8.2) g/dL Albumin 2.2 L (3.4-5.0) g/dL Lipase (73-393) U/L Urine Color (Yellw/Straw) Urine Clarity (Clear) Urine pH (5.0-8.5) Ur Specific [place] (1.002-1.035) Urine Protein (Neg-Trace) mg/dL Urine Glucose (UA) (Negative) mg/dL Urine Ketones (Negative) mg/dL Urine Occult Blood (Negative) Urine Nitrate (Negative) Urine Bilirubin (Negative) Urine Urobilinogen (Less than 2) mg/dL Ur Leukocyte Esterase (Negative) Urine WBC (0-5) /hpf Ur Squamous Epith Cells (0-5) /hpf Urine Bacteria (None) /hpf Urine Mucus (Occasional) /lpf Micro UA Comment Ur Microscopic Review Urine Culture Comments Imaging Data Radiologist's impression: Chest X-Ray 08/12/18 01:39 CONCLUSION: No acute cardiopulmonary disease identified. Abdomen X-Ray 08/12/18 03:09 CONCLUSION: Nonspecific bowel gas pattern. Abdomen/Pelvis CT 08/12/18 04:54 CONCLUSION: 1. Metastatic disease in the liver with increase in size of liver lesions. 2. Prominent distention of the cecum and transverse colon. Transition point is at the splenic flexure. There is partial telescoping of a portion of the colon into the adjacent colon at this level that has a similar appearance to the prior study and may represent region of prior surgery. May indicate transient intussusception. 3. Distended gallbladder. Discharge Plan Discharge Disposition Patient Disposition: 30 Still Patient Discharge Details Diagnosis: Abdominal pain, Colon cancer Physicians Team ED Provider: Nora Ryder Attending Provider: Edmond Johnson Other Providers: Hugo Arias ; Faizan Glasgow ; June Malone Discharge Interventions Interventions: ED Discharge Assessment Last Done: 08/12/18 05:26 Status ED Status: Left Department Discharge Information Discharge Date/Time: 08/12/18 05:31
[2018-08-12] MEDS: Sod Chloride 0.9% Inj 1,000 ML IV.CONT SCH (04:08)
[2018-08-12] MEDS: Potassium Chlor 20 mEq Premix 20 MEQ/100 ML PIGGYBACK IV.SIG SCH ×2 (04:25→06:27)
--- NOTE | 2018-08-12 04:59 | P.HPIM ---
History of Present Illness Service: [facility] . Primary Care Physician: Mick Tadeo Chief Complaint: Abdominal pain with nausea and vomiting History of Present Illness: Ms. Jeffery is a very pleasant 73-year-old patient with history of colorectal cancer status post chemotherapy about 4 weeks ago, liver cancer, hypothyroidism , and congestive heart failure of uncertain etiology who presented to the ER on 08/11/2018 for evaluation of abdominal pain with nausea and vomiting. There was some concern for bowel obstruction in the emergency room and she was admitted to [facility] after the ER physician spoke with her colorectal surgeon Dr. Glasgow. The patient is seen in the emergency department. She reports a 4 day history of severe, cramping abdominal pain that is diffuse throughout the abdomen. The pain is relieved by nothing and is aggravated by movement and eating and drinking. The pain occurs intermittently throughout the day. The patient denies any associated with fever or chills. She does report she had some the week before and was treated with Cipro by her oncologist. She denies any chest pain, shortness of breath, or diarrhea. She reports constipation with no bowel movement 3 days. Review of Systems All other systems reviewed negative except as stated in HPI PMFSH - History History Provided By: Patient - Medical History Medical History: Medical History (Last Updated 08/12/18 @ 05:21 by SUSAN Serra) CHF (congestive heart failure) Colon cancer H/O: hysterectomy History of chemotherapy Hypothyroidism Liver cancer - Surgical History Surgical History: Surgical History (Last Updated 08/12/18 @ 05:20 by SUSAN Serra) History of orthopedic surgery History of tonsillectomy Hx of cataract surgery - Family History Family History: Family History (Last Updated 08/12/18 @ 05:19 by SUSAN Serra) Grandparent Family history of colorectal cancer - Tobacco History Second Hand Smoke Exposure: No Tobacco Use In Past 30 Days: No Smoking Status: Former smoker - Alcohol History How Often Do You Have a Drink Containing Alcohol: Monthly or less - Substance Use History Substance History: Past History - Travel History Recent Travel in the [facility] Within the Last 8 Weeks: No Recent Travel Out of the Country Within the Last 8 Weeks: No - Immunization History Tetanus Immunization: >5 Years Hx Influenza Vaccine This Season: No Medications and Allergies Active Medications: Active Medications Cyclobenzaprine HCl (Flexeril) 5 mg PO DAILY PRN PRN Reason: Muscle Spasm Enalaprilat (Vasotec Inj) 1.25 mg IV.PUSH Q6H PRN PRN Reason: SBP>160, DBP>90 Gabapentin (Neurontin) 300 mg PO QPM [facility] Sodium Chloride (Ns Inj) 1,000 mls @ 100 mls/hr IV.CONT .Q10H [facility] Last Admin: 08/12/18 04:08 Dose: 100 mls/hr Potassium Chloride (Kcl 20 Meq Premix Inj) 20 meq in 100 mls @ 50 mls/hr IV.SIG Q2H [facility] Stop: 08/12/18 07:59 Last Admin: 08/12/18 04:25 Dose: 50 mls/hr Levothyroxine Sodium (Synthroid) 100 mcg PO DAILY@0700 [facility] Sertraline HCl (Zoloft) 100 mg PO DAILY [facility] Sodium Chloride (Ns Flush) 2 ml IV.FLUSH PRN PRN PRN Reason: FLUSH AFTER USING IV ACCESS Tramadol HCl (Ultram) 50 mg PO Q4H PRN PRN Reason: Pain, Moderate Trazodone HCl (Desyrel) 75 mg PO HS [facility] Allergies Allergy/AdvReac Type Severity Reaction Status Date / Time penicillin G Allergy Severe Anaphylaxis Verified 08/12/18 02:07 NSAIDS Allergy Severe SWELLING Uncoded 08/12/18 01:06 Home Medications Medication Instructions Recorded Confirmed Type cyclobenzaprine 5 mg PO DAILY PRN 08/12/18 08/12/18 History gabapentin 300 mg PO QPM 08/12/18 08/12/18 History levothyroxine 100 mcg PO DAILY 08/12/18 08/12/18 History sertraline [Zoloft] 100 mg PO DAILY 08/12/18 08/12/18 History tramadol 50 mg PO Q4-6H PRN 08/12/18 08/12/18 History trazodone 75 mg PO HS 08/12/18 08/12/18 History Exam Vital signs: Vital Signs 08/12/18 01:06 08/12/18 02:01 08/12/18 04:46 Temperature 98.2 F Pulse Rate 102 H 89 93 H Respiratory Rate 21 16 15 Blood Pressure 145/81 H 173/93 H 159/87 H Pulse Oximetry 97 96 Intake & Output 08/11/18 08/11/18 08/12/18 06:59 18:59 06:59 Intake Total 1000 / 1000 Balance 1000 / 1000 Weight 72.575 kg Intake: IV 1000 / 1000 NS Inj 1,000 ML @ Wide Open IV. 1000 / 1000 SIG BOLUS ONE Rx#:[id number] Narrative: GENERAL: This is a well-nourished, well-developed patient, in no apparent distress. SKIN: No rashes, ecchymoses or lesions. Cool and dry. HEAD: Atraumatic. Normocephalic. EYES: No scleral icterus. No injection or drainage. ENT: Nose without bleeding, purulent drainage. NECK: Trachea midline. No JVD. CARDIOVASCULAR: Regular rate and rhythm without murmurs, gallops, or rubs. RESPIRATORY: Clear to auscultation. Breath sounds equal bilaterally. No wheezes , rales, or rhonchi. GASTROINTESTINAL: Abdomen soft, tender to palpation in the left lower quadrant, slightly distended. No guarding. MUSCULOSKELETAL: Extremities without clubbing, cyanosis, or edema. No calf tenderness. NEUROLOGICAL: Awake and alert. Motor and sensory grossly within normal limits. Normal speech. . Results - Labs CBC & Chem 7: 08/12/18 02:19 08/12/18 02:19 Labs: Short CBC 08/12/18 Range/Units 02:19 WBC 15.4 H (4.0-11.0) th/mm3 Hgb 11.7 (11.6-15.3) gm/dL Hct 36.0 (35.0-46.0) % Plt Count 411 D (150-450) th/mm3 BMP 08/12/18 02:19 Sodium 138 Potassium 3.1 L Chloride 100 Carbon Dioxide 25.7 BUN 7 Creatinine 0.43 L Calcium 7.6 L Cardiac Enzymes 08/12/18 Range/Units 02:19 Total Creatine Kinase 131 (26-192) U/L CK-MB (CK-2) Less than 1.0 (0.5-3.6) ng/mL Troponin I Less than 0.02 L (0.02-0.05) ng/mL Liver Function 08/12/18 Range/Units 02:19 Total Bilirubin 0.5 (0.2-1.0) mg/dL AST 71 H (15-37) U/L ALT 31 (10-53) U/L Alkaline Phosphatase 294 H (45-117) U/L Albumin 2.3 L (3.4-5.0) g/dL Urine 08/12/18 Range/Units 02:54 Urine Color Yellow (Yellw/Straw) Urine Clarity Clear (Clear) Urine pH 6.0 (5.0-8.5) Ur Specific [place] 1.009 (1.002-1.035) Urine Protein Negative (Neg-Trace) mg/dL Urine Glucose (UA) Negative (Negative) mg/dL - Imaging Impressions Chest X-Ray 08/12/18 01:39 CONCLUSION: No acute cardiopulmonary disease identified. Abdomen X-Ray 08/12/18 03:09 CONCLUSION: Nonspecific bowel gas pattern. Caprini VTE Risk Assessment Caprini VTE Risk Assessment: Moderate/High Risk (score >= 2) Caprini Risk Assessment Model: Point Value = 1 Point Value = 2 Point Value = 3 Point Value = 5 Age 41-60 Minor surgery BMI > 25 kg/m2 Swollen legs Varicose veins or History of unexplained or recurrent spontaneous Oral contraceptives or hormone replacement Sepsis (< 1 month) Serious lung disease, including pneumonia (< 1 month) Abnormal pulmonary function Acute myocardial infarction Congestive heart failure (< 1 month) History of inflammatory bowel disease Medical patient at bed rest Age 61-74 Arthroscopic surgery Major open surgery (> 45 min) Laparoscopic surgery (> 45 min) Malignancy Confined to bed (> 72 hours) Immobilizing plaster cast Central venous access Age >= 75 History of VTE Family history of VTE Factor V Leiden Prothrombin [id number] Lupus anticoagulant Anticardiolipin antibodies Elevated serum homocysteine Heparin-induced thrombocytopenia Other congenital or acquired thrombophilia Stroke (< 1 month) Elective arthroplasty Hip, pelvis, or leg fracture Acute spinal cord injury (< 1 month) Prophylaxis Regimen: Total Risk Factor Score Risk Level Prophylaxis Regimen 0-1 Low Early ambulation 2 Moderate Order ONE of the following: *Sequential Compression Device (SCD) *Heparin 5000 units SQ BID 3-4 Higher Order ONE of the following medications: *Heparin 5000 units SQ TID *Enoxaparin/Lovenox 40 mg SQ daily (WT < 150 kg, CrCl > 30 mL/min) *Enoxaparin/Lovenox 30 mg SQ daily (WT < 150 kg, CrCl > 10-29 mL/min) *Enoxaparin/Lovenox 30 mg SQ BID (WT < 150 kg, CrCl > 30 mL/min) AND/OR *Sequential Compression Device (SCD) 5 or more Highest Order ONE of the following medications: *Heparin 5000 units SQ TID (Preferred with Epidurals) *Enoxaparin/Lovenox 40 mg SQ daily (WT < 150 kg, CrCl > 30 mL/min) *Enoxaparin/Lovenox 30 mg SQ daily (WT < 150 kg, CrCl > 10-29 mL/min) *Enoxaparin/Lovenox 30 mg SQ BID (WT < 150 kg, CrCl > 30 mL/min) AND *Sequential Compression Device (SCD) Assessment and Plan - Plan Ms. Jeffery is a very pleasant 73-year-old patient with history of colorectal cancer status post chemotherapy about 4 weeks ago, liver cancer, hypothyroidism , and congestive heart failure of uncertain etiology who presented to the ER on 08/11/2018 for evaluation of abdominal pain with nausea and vomiting. There was some concern for bowel obstruction in the emergency room and she was admitted to [facility] after the ER physician spoke with her colorectal surgeon Dr. Glasgow. Abdominal pain with nausea and vomiting -X-ray of abdomen shows nonspecific bowel gas pattern -scattered gas in nondilated colon and scattered gas in nondilated small bowel. -Recent treatment for pneumonia with Cipro -Check C. difficile if any diarrhea occurs -Check CT abdomen and pelvis with IV contrast -Morphine 2 mg IV q3h PRN pain and Ultram 50 mg every 4 hours as needed when able to take p.o. -Consult colorectal surgery -appreciate assistance -NPO -IV fluid hydration with normal saline at 100 cc/h -IV Zofran 4 mg every 6 hours as needed nausea vomiting Colorectal cancer -Consult oncology -appreciate assistance Leukocytosis with neutrophilia and monocytosis -Patient is afebrile; chemotherapy 4 weeks ago -UA negative -C. difficile testing if diarrhea occurs -Chest x-ray with no acute cardiopulmonary disease identified Hypokalemia likely secondary to nausea and vomiting -Potassium 3.1 on admission -Replacement ordered -Recheck labs and follow results and replenish as indicated -Continuous cardiac telemetry to monitor for arrhythmia Hypothyroidism -Resume home Synthroid DVT prophylaxis -SCDs pending further evaluation of abdominal pain Discussed Condition With: Dr. Lyles, RN, and patient .
[2018-08-12] MEDS ORDERED: Morphine Sulfate Inj 2 MG/ML Vial IV.PUSH PRN (05:33)
--- NOTE | 2018-08-12 05:38 | CT ---
EXAM DATE: 08/12/2018 5:13 AM EDT AGE/SEX: 73 years / Female INDICATIONS: Abdomen pain. History of colon cancer. CLINICAL DATA: This is the patient's initial encounter. Patient reports that signs and symptoms have been present for 1 month and indicates a pain score of 6/10. MEDICAL/SURGICAL HISTORY: Carcinoma, colon. Metastatic disease. Chemotherapy Hysterectomy. ORAL CONTRAST: No oral contrast ingested. RADIATION DOSE: 6.77 CTDI (mGy) COMPARISON: . TECHNIQUE: Multiple contiguous axial images were obtained through the abdomen and pelvis following b olus infusion of 75 ml Omnipaque 350 (iohexol) nonionic water-soluble contrast as a single exam dos e. No oral contrast ingested. Using automated exposure control and adjustment of the mA and/or kV ac cording to patient size, radiation dose was kept as low as reasonably achievable to obtain optimal di agnostic quality images. DICOM format image data is available electronically for review and comparis on. FINDINGS: Lower Lungs: Mild bilateral lower lobe atelectasis again seen. Liver: Numerous hepatic masses indicating metastatic disease again seen. Increase in size of the mass es when compared to the prior study of May 2018. Index lesion in the central right lobe on image #29 now measures 6.4 cm compared to 4.2 cm on the prior study. Near the dome of the diaphragm there is n ow confluence of lesions measuring Gallbladder is distended. Spleen: Homogeneous density without enlargement. Pancreas: Unremarkable without mass or calcification. Kidneys: 1 cm cyst in the anterior midpole on the right. Otherwise within normal limits. No evidence of hydronephrosis. Adrenal Glands: Unremarkable. Aorta: The aorta and proximal iliac vessels are grossly unremarkable without aneurysmal dilation. Bowel/Mesentery: Marked distention of the cecum measuring 11.5 cm in diameter and moderate distentio n of the transverse colon measuring 6 cm in diameter. There is a transition point at the splenic flex ure and the descending colon and sigmoid colon is decompressed. At the point of transition, there is mild telescoping of the more proximal colon into the more distal colon. This may be a surgical transi tion point. Similar appearance is seen on the prior CT. Abdominal Wall: Intact. Retroperitoneum: No evidence of adenopathy in the retrocrural, para-aortic, or deep pelvic regions. Bladder: Contours are smooth. Reproductive Organs: No abnormal masses or calcifications seen. Inguinal: The inguinal region is unremarkable without evidence of adenopathy. Bony Structures: Unremarkable. CONCLUSION: 1. Metastatic disease in the liver with increase in size of liver lesions. 2. Prominent distention of the cecum and transverse colon. Transition point is at the splenic flexur e. There is partial telescoping of a portion of the colon into the adjacent colon at this level that has a similar appearance to the prior study and may represent region of prior surgery. May indicate t ransient intussusception. 3. Distended gallbladder. Electronically signed by: Be Dueñas MD 08/12/2018 5:36 AM EDT
[2018-08-12] MEDS: Levothyroxine 100 MCG Tablet PO SCH (06:24)
[2018-08-12] MEDS: Sertraline 100 MG Tablet PO SCH (09:50)
[2018-08-12] MEDS ORDERED: Bupivacaine PF 0.5% Inj 30 ML Vial ONE (14:30)
[2018-08-12] MEDS ORDERED: Cisatracurium Inj 20 MG/10 ML Vial ONE (17:33)
[2018-08-12] MEDS ORDERED: Succinylcholine Inj 100 MG/5 ML Syringe IV.PUSH ONE (18:00)
[2018-08-12] MEDS ORDERED: Neostigmine Inj 5 MG/5 ML Syringe IV.PUSH ONE (18:00)
[2018-08-12] MEDS ORDERED: hydrALAZINE HCl Inj 20 MG/ML Vial IV.PUSH ONE (18:00)
[2018-08-12] MEDS ORDERED: Lidocaine PF 1% Inj 5 ML Syringe OTHER ONE (18:00)
[2018-08-12] MEDS ORDERED: Glycopyrrolate Inj 1 MG/5 ML Syringe IV.PUSH ONE (18:00)
[2018-08-12] MEDS ORDERED: Acetaminophen 325 MG Tablet PO PRN (18:40)
[2018-08-12] MEDS ORDERED: Potassium Chlor 20 mEq Premix 20 MEQ/100 ML PIGGYBACK IV.SIG PRN (18:40)
[2018-08-12] MEDS ORDERED: Potassium Chlor 40 mEq Premix 40 MEQ/100 ML PIGGYBACK IV.SIG PRN (18:40)
[2018-08-12] MEDS ORDERED: Ketorolac Inj 30 MG/ML (IVP) Vial IV.PUSH PRN (18:40)
[2018-08-12] MEDS ORDERED: Naloxone Inj 0.4 MG/ML Vial IV.PUSH PRN (18:51)
[2018-08-12] MEDS ORDERED: KCL 20 mEq/D5W/NaCl 0.9% Inj 1,000 ML ONE (18:51)
[2018-08-12] MEDS ORDERED: fentaNYL Citrate Inj 100 MCG/2 ML Ampul ONE (18:52)
[2018-08-12] MEDS ORDERED: *morphine SULFATE 4 MG/ML PERIprocedure ONLY ONE (18:55)
[2018-08-12] MEDS: Gabapentin 300 MG Capsule PO SCH ×2 (19:00→22:42)
[2018-08-12] MEDS: KCL 20 mEq/D5W/NaCl 0.9% Inj 1,000 ML IV.CONT SCH (19:00)
[2018-08-12] MEDS ORDERED: *morphine SULFATE 10 MG/ML PERIprocedure ONLY ONE (19:04)
[2018-08-12] MEDS ORDERED: Morphine Inj 30 MG/30 ML PCA.VIAL PCA ONE (19:13)
[2018-08-12] MEDS ORDERED: HYDROmorphone PF Inj 2 MG/ML Vial ONE (19:23)
[2018-08-12] MEDS: Morphine Inj 30 MG/30 ML PCA.VIAL PCA PRN (19:44)
--- NOTE | 2018-08-12 19:51 | P.PNADD ---
Addendum to Inpatient Note Additional information: Patient chart reviewed. Patient was still in the OR during rounds. Attempted to see patient later but she still in the PACU. Anticipate see patient tomorrow.
--- NOTE | 2018-08-12 20:56 | P.PNADD ---
Addendum to Inpatient Note Reason for Addendum: Additional Documentation Additional information: Pt seen postop in PACU. on RA. apparently underwent ex-lap with colostomy?. clear lungs BL, unlabored breathing abd soft, ND, colostomy in place
[2018-08-12] MEDS: traZODone 50 MG Tablet PO SCH (22:42)
--- NOTE | 2018-08-12 22:44 | ECG ---
Date Performed: 08/12/2018 Time Performed: 13:20:32 PTAGE: 73 years EKG: Sinus rhythm . Normal ECG Since the PREVIOUS TRACING , no significant change noted DOCTOR: Dominga Morton Interpretating Date/Time 08/12/2018 22:42:36
[2018-08-13] MEDS: KCL 20 mEq/D5W/NaCl 0.9% Inj 1,000 ML IV.CONT SCH ×3 (02:10→19:56)
[2018-08-13 04:11] LABS: Baso # (Auto) 0.1 th/mm3 (0.0-0.2); Baso % (Auto) 0.4 % (0.0-2.0); Eos # (Auto) 0.1 th/mm3 (0.0-0.4); Eos % (Auto) 0.5 % (0.0-4.0); Hematocrit 34.6 % (35.0-46.0); Lymph % (Auto) 7.2 % (9.0-44.0); Mean Corpuscular HGB Conc 31.8 % (32.0-36.0); Mean Corpuscular Hemoglobin 26.8 pg (27.0-34.0); Mean Corpuscular Volume 84.2 fL (80.0-100.0); Mean Platelet Volume 7.2 fL (7.0-11.0); Mono # (Auto) 1.1 th/mm3 (0.0-0.9); Mono % (Auto) 8.1 % (0.0-8.0); Neut # (Auto) 11.8 th/mm3 (1.8-7.7); Neut % (Auto) 83.8 % (16.0-70.0); Platelet Count 385 th/mm3 (150-450); Red Blood Count 4.11 mil/mm3 (4.00-5.30); Red Cell Distribution Width 19.1 % (11.6-17.2); White Blood Count 14.1 th/mm3 (4.0-11.0)
[2018-08-13 04:42] LABS: Alanine Aminotransferase 25 U/L (10-53); Albumin 2.2 g/dL (3.4-5.0); Alkaline Phosphatase 266 U/L (45-117); Anion Gap 5 meq/L (5-15); Aspartate Aminotransferase 59 U/L (15-37); Blood Urea Nitrogen 4 mg/dL (7-18); Calcium 7.8 mg/dL (8.5-10.1); Carbon Dioxide 31.1 meq/L (21.0-32.0); Chloride 103 meq/L (98-107); Glomerular Filtration Rate Greater Than 89 mL/min (>89); Glucose,Random 102 mg/dL (74-106); Potassium 5.1 meq/L (3.5-5.1); Sodium 139 meq/L (136-145); Total Protein 5.8 g/dL (6.4-8.2)
[2018-08-13] MEDS: Morphine Inj 30 MG/30 ML PCA.VIAL PCA PRN (05:38)
[2018-08-13] MEDS: Levothyroxine 100 MCG Tablet PO SCH (06:13)
[2018-08-13] MEDS: Sertraline 100 MG Tablet PO SCH (10:11)
[2018-08-13] MEDS: Pantoprazole Inj 40 MG Vial IV.PUSH SCH (10:15)
--- NOTE | 2018-08-13 10:55 | P.PNCS ---
Subjective Colorectal Surgery Post Op Day #: 1 Interval history: afebrile, VSS UO good Stoma little output Objective Result Diagrams: 08/13/18 03:40 08/13/18 03:40 Objective Remarks: PE alert Abd - softer, stoma swollen, less tympany Assessment and Plan - Plan Imp: stable post-op OOB decr IVF start PO
--- NOTE | 2018-08-13 12:28 | MP ---
cc: Faizan Glasgow MD DATE OF OPERATION: 08/12/2018 PREOPERATIVE DIAGNOSIS: Obstructing carcinoma of the splenic flexure. PROCEDURE: Exploratory laparotomy with loop transverse colostomy. POSTOPERATIVE DIAGNOSIS: Obstructing carcinoma of the splenic flexure. SURGEON: Faizan Glasgow MD [employer] OPERATOR: Kadeem Plata MD PROCEDURE: The patient was placed in the supine position. After adequate general anesthesia, her abdomen was prepped with Betadine solution and draped in the usual sterile fashion. With Dr. Plata's assistance, a small midline incision was made entering the abdominal cavity under direct vision. Exploration revealed the transverse colon to rather distended, full of fluid and liquid feces. The small bowel was gently dilated. No obvious peritoneal seeds were seen. The omentum was taken off the transverse colon with electrocautery. After adequate mobilization an avascular plane was created in the mesentery and a [place] drain placed. Small circular right upper quadrant incision was made, taken down through subcutaneous tissue, opening the rectus fascia, splitting the rectus muscles and entering the abdominal cavity under direct vision. This section of transverse colon was brought up through the circular wound without tension and with good blood supply. A colostomy bar placed through the mesenteric defect. The midline incision was then closed using a running #1-PDS suture to close the midline fascia. The subcutaneous tissue was irrigated copiously and the skin closed with a row of surgical bobby. Wound area washed with normal saline and dried, sterile dressing of Telfa and gauze applied. Finally, the colostomy was matured both proximally and distally by creating a transverse colotomy and maturing both orifices in the usual Mary Jo fashion with interrupted chromic catgut sutures around the circumference. At completion, the stoma did appear to be viable and was patent through the fascia level. Pull suction was used to decompress the colon in both directions. A sterile colostomy appliance was fitted over the new stoma. The patient tolerated the procedure quite well and was brought to the recovery room in stable condition. The sponge and needle counts were correct at the end of the procedure. Faizan Glasgow MD AHR/ld , 11:40 AM , 11:48 AM
--- NOTE | 2018-08-13 14:58 | MB ---
cc: Faizan Glasgow MD, Ruby Anne E MD DATE: 08/12/2018 REASON FOR CONSULTATION: Obstructing cancer of the splenic flexure. HISTORY OF PRESENT ILLNESS: Ms. Jeffery is a 73-year-old female known from previous months of outpatient treatment for an obstructing cancer of the splenic flexure with liver metastasis. She is on aggressive treatment of chemotherapy with very little response. The patient has had increasing amounts of cramps recently with more obstructive symptoms. She called the day of admission and complained of severe cramps over the weekend with very little stool and very little flatus. Denies any nausea or vomiting. No diarrhea or melena. The patient was admitted for diversion of her obstructed colon. Please see the admitting history and physical for more complete past medical and surgical history, and. PHYSICAL EXAMINATION: GENERAL: A very pleasant, well-developed female in no acute distress. HEENT: Remarkable for pink, dry membranes. Nonicteric sclerae. NECK: Supple without gross adenopathy. CHEST: Diminished in the bases, clear anteriorly. HEART: Regular rhythm. ABDOMEN: Soft, nondistended. No rebound or guarding or any masses noted. Mildly distended. Very little tympany, but tender in the upper abdomen and over the right lower quadrant. RECTAL: Anal inspection revealed benign canal. Digital exam revealed good tone. No masses or tenderness of blood on the finger. EXTREMITIES: No cyanosis or clubbing and 1+ pedal edema. LABORATORY STUDIES: White count was 15.4, hemoglobin 11.7, platelet count 411,000. Electrolytes remarkable for BUN of 7, creatinine of 0.43. CT scan was reviewed showing multiple liver metastases and an obstructed colon in the splenic flexure consistent with her known cancer. Very distended transverse right ascending colon, and cecum. No small bowel dilatation. IMPRESSION: This is a very unfortunate 73-year-old female with obstructing cancer of the splenic flexure and extensive liver metastasis. She has not responded very well to chemotherapy programs up to this point. Unfortunately, to the splenic flexure tumor has become more obstructing and the CT scan shows quite a significant dilatation and fecal impaction of the transverse right colon in the cecal area. We reviewed the seat great length with the patient. Prior attempts to have the patient undergo colonic diversion has been unsuccessful as an outpatient. We discussed risks, benefits, and alternatives at this point with her increasing pain and tenderness and fairly massive distention of the cecum. She understands resection of the tumor would probably be too invasive at this point, considering the extent of her metastatic disease. We will plan on just a palliative loop colostomy and then talk with Dr. Malone about putting her back on chemotherapy if she wishes to be aggressive with treatment. Faizan Glasgow MD [facility]/carissa , 09:07 PM , 09:15 PM
--- NOTE | 2018-08-13 16:55 | P.PN ---
Subjective Interval history: Patient still requiring the use of the pain pump. Nursing denies any deterioration since last night. Patient says she tolerated Jell-O today. Physical Exam Vital signs: Vital Signs 08/12/18 17:16 08/12/18 18:47 08/12/18 19:00 Temperature 97.8 F 97.9 F 97.9 F Pulse Rate 85 91 H 83 Respiratory Rate 15 20 15 Blood Pressure 181/88 H 178/86 H 167/78 H Pulse Oximetry 93 L 96 97 08/12/18 19:15 08/12/18 19:25 08/12/18 19:30 Temperature Pulse Rate 83 84 Respiratory Rate 15 20 17 Blood Pressure 161/77 H 170/81 H Pulse Oximetry 98 97 08/12/18 19:56 08/12/18 19:57 08/12/18 20:00 Temperature 98.1 F Pulse Rate 98 H Respiratory Rate 15 16 Blood Pressure 155/87 H Pulse Oximetry 98 99 08/12/18 20:30 08/12/18 20:49 08/12/18 20:54 Temperature Pulse Rate 98 H Respiratory Rate 16 16 Blood Pressure Pulse Oximetry 97 96 08/12/18 21:01 08/12/18 22:00 08/12/18 22:45 Temperature Pulse Rate 98 H Respiratory Rate 16 Blood Pressure Pulse Oximetry 94 L 94 L 95 08/12/18 22:47 08/12/18 23:04 08/13/18 00:55 Temperature 98.3 F Pulse Rate 86 Respiratory Rate 16 16 16 Blood Pressure 147/84 H Pulse Oximetry 94 L 08/13/18 03:28 08/13/18 06:09 08/13/18 08:00 Temperature 98.7 F 99.0 F Pulse Rate 93 H 91 H Respiratory Rate 16 16 14 Blood Pressure 169/90 H 194/90 H Pulse Oximetry 94 L 92 L 08/13/18 11:34 08/13/18 12:00 Temperature 98.4 F Pulse Rate 87 Respiratory Rate 16 Blood Pressure 168/83 H Pulse Oximetry 91 L 97 Intake & Output 08/12/18 08/13/18 08/13/18 18:59 06:59 18:59 Intake Total 900 / 900 1450 / 1450 1100 / 1100 Output Total 110 / 110 580 / 580 Balance 790 / 790 870 / 870 1100 / 1100 Intake: IV 200 / 200 1330 / 1330 1100 / 1100 D5W/NS + KCL 20 mEq Inj 1,000 1000 / 1000 1000 / 1000 ML @ 150 mls/hr IV.CONT .[id number] ROBERTO Rx#:[id number] KCl 20 mEq Premix Inj 20 meq In 100 / 100 100 ml @ 50 mls/hr IV.SIG Q2H ROBERTO Rx#:[id number] Ancef Inj 1,000 MG In NS Inj 220 / 220 100 ML @ 200 mls/hr IV.SIG Q6H ROBERTO Rx#:[id number] Flagyl 500 MG Inj 100 ML @ 200 100 / 100 110 / 110 100 / 100 mls/hr IV.SIG Q8H ROBERTO Rx#: [id number] Oral 120 / 120 Anesthesia Amount 700 / 700 Output: Estimated Blood Loss 10 / 10 Urine Amount (Catheter) 100 / 100 580 / 580 Indwelling Urethral Catheter 100 / 100 580 / 580 Narrative: Heart sounds regular rate and rhythm Clear lungs bilaterally, unlabored breathing Colostomy bag in place, no stool coming out - Urinary Catheter Management Indwelling Urethral Catheter Cath placed during this visit: yes Reason for continuing: Other continuation reason Insertion date: 08/12/18 Insertion time: 17:58 Results - Labs CBC & Chem 7: 08/13/18 03:40 08/13/18 03:40 Laboratory Results - last 24 hr 08/13/18 08/13/18 03:40 03:40 WBC 14.1 H RBC 4.11 Hgb 11.0 L Hct 34.6 L MCV 84.2 MCH 26.8 L MCHC 31.8 L RDW 19.1 H Plt Count 385 MPV 7.2 Neut % (Auto) 83.8 H Lymph % (Auto) 7.2 L [place] % (Auto) 8.1 H Eos % (Auto) 0.5 Baso % (Auto) 0.4 Neut # (Auto) 11.8 H Lymph # (Auto) 1.0 [place] # (Auto) 1.1 H Eos # (Auto) 0.1 Baso # (Auto) 0.1 WBC Differential . Differential Comment Auto diff final Sodium 139 Potassium 5.1 D Chloride 103 Carbon Dioxide 31.1 Anion Gap 5 BUN 4 L Creatinine 0.42 L Estimated GFR Greater than 89 Random Glucose 102 Calcium 7.8 L Total Bilirubin 0.3 AST 59 H ALT 25 Alkaline Phosphatase 266 H Total Protein 5.8 L Albumin 2.2 L Microbiology 08/12/18 02:19 Blood - Peripheral Aerobic Blood Culture - Preliminary No growth in 1 day 08/12/18 02:19 Blood - Peripheral Anaerobic Blood Culture - Preliminary No growth in 1 day 08/12/18 02:19 Blood - Peripheral Aerobic Blood Culture - Preliminary No growth in 1 day 08/12/18 02:19 Blood - Peripheral Anaerobic Blood Culture - Preliminary No growth in 1 day Assessment and Plan - Plan Ms. Jeffery is a very pleasant 73-year-old patient with history of colorectal cancer status post chemotherapy about 4 weeks ago, liver cancer, hypothyroidism , and congestive heart failure of uncertain etiology who presented to the ER on 08/11/2018 for evaluation of abdominal pain with nausea and vomiting, admitted with bowel obstruction. Abdominal pain with nausea and vomiting -Status post exploratory laparotomy, colostomy, on morphine SENIOR MOBILE WEB DEVELOPER pump -Clear liquids, colorectal surgery following Colorectal cancer -oncology following Leukocytosis with neutrophilia and monocytosis -Patient is afebrile; chemotherapy 4 weeks ago -UA negative -C. difficile testing if diarrhea occurs -Chest x-ray with no acute cardiopulmonary disease identified Hypokalemia likely secondary to nausea and vomiting -Potassium 3.1 on admission -Replacement ordered - Hypothyroidism -home Synthroid DVT prophylaxis -SCDs pending further evaluation of abdominal pain
--- NOTE | 2018-08-13 18:20 | P.PNWCN ---
Wound Care Nurse Consult Description: Patient seen for new ostomy teaching per consult ordered by Doctor Fitz Communicated with: RN Panfilo and Patient Recommendation: Empty pouch when 1/3 to 1/2 full. Change ostomy appliance every 5 to 7 days or when leaking. Do not tape edges of appliance to reinforce, if leaking please change. Monitor stoma for output, appearance and color Do not cut moldable appliances. Bowel Diversion Stoma - Bowel Stoma Right Upper Abdomen Stoma Edema: Yes (Stoma measures 2 1/2 inches ) Stoma Diameter: 64 (mm) Stoma Appearance: Beefy Red Loop Supporting Javon: Yes Collection Device: Two-piece, Moldable Wafer Drainage Description: Liquid, Mucoid, Blood-Tinged Wafer Size: 4 Inch Cut to Fit 100mm Cecille-Stomal Surrounding Tissue Sensation Description: No Symptoms - Additional Information Additional Information: Patient seen on [facility] for new ostomy teaching. Colostomy education kit delivered. Stoma is visible through transparent pouch measuring 2 1/2 inches or 64 mm in diameter. Stoma is round and protruding with javon in place for support. Two piece appliance in place is dry and intact. Spoke with patient about type of colostomy surgery. Instructed patient that pouch needs to be emptied when 1/3 to 1/2 full. Also instructed patient and RN to change cut to fit 4 inch two piece appliance every 5 to 7 days or as needed if leaking. ~50 ml of sero- sanguinous mucoid drainage is noted in pouch.Will follow up with patient tomorrow for continued teaching.
[2018-08-13] MEDS: Lisinopril 10 MG Tablet PO SCH (19:52)
[2018-08-13] MEDS: Gabapentin 300 MG Capsule PO SCH (19:52)
[2018-08-13] MEDS: traZODone 50 MG Tablet PO SCH (21:15)
--- NOTE | 2018-08-14 00:29 | MB ---
cc: June Malone MD, Jeffrey D MD DATE: 08/13/2018 DATE OF SERVICE: 01/13/2018. REFERRING PHYSICIAN: Dr. Robert Lyles CHIEF COMPLAINT: Dr. Lyles requests a consultation regarding Ms. Jeffery with metastatic colorectal cancer. HISTORY OF PRESENT ILLNESS: Ms. Jeffery is a 73-year-old woman, well known patient of Dr. Amie Craven, who transferred [place]. She has a history of metastatic colorectal cancer with KRAS positivity. She was found to have a near obstructing lesion, but declined diverting ileostomy initially. She was started on palliative chemotherapy with FOLFOX without Avastin in February 2018. She continued on FOLFOX therapy. She was noted to have a rising CEA. Her CEA on 07/08/2018 was 696 which was concerning for progression of disease. She was pending a switch of chemotherapy from FOLFOX to FOLFIRI. She was supposed to start her chemotherapy on the day of her admission. She describes having severe abdominal pain every time she ate something 4 days prior to her presentation. She denies any vomiting. She had severe abdominal pain. She had increased distention. There is a decrease in bowel movement and constipation. Prior to her presentation, she has had decreased p.o. intake. She had nausea and vomiting. She is aware of her risk for obstruction. He came into the hospital, unable to get into Dr. Glasgow's clinic earlier on that week. In the emergency room, she had diffuse abdominal pain. IMAGING: CT scan of the abdomen and pelvis showed metastatic disease in the liver, which is known. There is prominent distention of the cecum and transverse colon. There is a transition point at the splenic flexure. She had a distended gallbladder. On 08/12/2013, she underwent exploratory laparotomy with loop transverse colostomy. She tolerated the procedure well. She is seen postoperatively on the oncology floor. She has been visited by the ostomy nurse. She still has a lot of pain and is on a SALES OFFICE COORDINATOR pump. She denies any nausea or vomiting. She anticipates being able to start clear liquids this evening. She is moving her legs. She denies any headaches. He still has a lot of abdominal pain and back pain post surgery. She is quite uncomfortable, but relieved with the diverting colostomy. PAST MEDICAL HISTORY: Metastatic colorectal cancer, arthritis, cataracts, depression, hypothyroidism, osteoporosis, migraine headache. PAST SURGICAL HISTORY: Hammertoe surgery, cataract removal, hysterectomy, left radius fracture repair, left ulnar transposition surgery, tonsillectomy, colonoscopy and port placement. ALLERGIES: NSAID AND STEROIDS. FAMILY HISTORY: Significant for mother at the age of 20. Father's history is unknown. No significant family history of cancer. Her daughter has a history of breast cancer. SOCIAL HISTORY: She is . She is retired. She quit smoking 44 years ago. She has less than 5-pack year smoking history. She drinks occasionally. PHYSICAL EXAMINATION: VITAL SIGNS: Temperature 98.4, heart rate 92, respiratory rate 16, blood pressure 172/91, saturation 96%. GENERAL: Ms. Jeffery is a well-developed, well-nourished woman. She looks relieved. She is still in a lot of discomfort post surgery. HEENT: Her pupils are round, reactive to light and accommodation. Oropharynx is clear. NECK: Supple. LUNGS: Clear anteriorly. CARDIOVASCULAR: Reveals normal rate and rhythm. ABDOMEN: Decreased distention. Ostomy site looks pink. There is some liquid in her colostomy bag. LOWER EXTREMITIES: No edema. Good pulses. NEUROLOGIC: Nonfocal. CURRENT MEDICATIONS: 1. Acetaminophen. 2. Flexeril p.r.n. 3. Vasotec p.r.n. 4. Gabapentin. 5. Synthroid. 6. Lisinopril. 7. Reglan p.r.n. 8. Morphine p.r.n. 9. Zofran p.r.n. 10. Pantoprazole. 11. Potassium chloride. 12. Sertraline. 13. Trazodone p.r.n. LABORATORY DATA: Postoperatively, hemoglobin 11.0, WBC 14.1, platelet count 385, BUN of 4, creatinine 0.42. Calcium is decreased at 7.8, AST 59, ALT 266, albumin 2.3. CEA 1192. ASSESSMENT AND PLAN: Ms. Jeffery is a 73-year-old woman with metastatic colorectal cancer and near obstruction. She was started on palliative chemotherapy with FOLFOX with partial response and decreasing CEA. She had avoided diverting colostomy until recent signs of progression. Prior to being able to start second line chemotherapy, she developed abdominal pain for 4 days' time and presented to the emergency room with obstruction. She was taken to the operating room for exploratory surgery and diverting colostomy. She is recovering from her recent surgery. She is receiving support. She is anticipated to start clears. She has clear progression of disease with liver metastatic disease. She does not appear to have the disease in the abdomen where she had diverting surgery. We discussed plans to allow her to recover from her surgery. I anticipate starting her chemotherapy once she is recovered in about 3-4 weeks' time. She did not receive Avastin which allows her to proceed with surgery and hopefully allow her to heal. She has known progressive disease at the time that she presented. Suspect that the obstructive symptoms is another sign for disease progression that correlates with the rising CEA. The ultimate treatment would be to resume her palliative chemotherapy with FOLFIRI. We will continue to follow her progress during her hospitalization. Treatment will be initiated on an outpatient basis. We will monitor her recovery postoperatively. Her questions were answered to her satisfaction. MD LOGAN Maradiaga/stefano , 09:37 PM , 09:53 PM
[2018-08-14] MEDS: KCL 20 mEq/D5W/NaCl 0.9% Inj 1,000 ML IV.CONT SCH ×2 (02:59→04:04)
[2018-08-14] MEDS: Levothyroxine 100 MCG Tablet PO SCH (06:14)
[2018-08-14 06:56] LABS: Baso # (Auto) 0.1 th/mm3 (0.0-0.2); Baso % (Auto) 0.5 % (0.0-2.0); Eos # (Auto) 0.1 th/mm3 (0.0-0.4); Eos % (Auto) 0.6 % (0.0-4.0); Hematocrit 31.6 % (35.0-46.0); Hemoglobin 10.1 gm/dL (11.6-15.3); Lymph % (Auto) 8.1 % (9.0-44.0); Mean Corpuscular HGB Conc 31.8 % (32.0-36.0); Mean Corpuscular Hemoglobin 27.1 pg (27.0-34.0); Mean Platelet Volume 7.6 fL (7.0-11.0); Mono # (Auto) 1.2 th/mm3 (0.0-0.9); Mono % (Auto) 9.3 % (0.0-8.0); Neut # (Auto) 10.3 th/mm3 (1.8-7.7); Neut % (Auto) 81.5 % (16.0-70.0); Platelet Count 330 th/mm3 (150-450); Red Blood Count 3.72 mil/mm3 (4.00-5.30); Red Cell Distribution Width 19.7 % (11.6-17.2); White Blood Count 12.6 th/mm3 (4.0-11.0)
[2018-08-14 07:06] LABS: Anion Gap 5 meq/L (5-15); Blood Urea Nitrogen 3 mg/dL (7-18); Calcium 7.9 mg/dL (8.5-10.1); Carbon Dioxide 29.6 meq/L (21.0-32.0); Chloride 104 meq/L (98-107); Glomerular Filtration Rate Greater Than 89 mL/min (>89); Glucose,Random 141 mg/dL (74-106); Potassium 4.4 meq/L (3.5-5.1); Sodium 139 meq/L (136-145)
[2018-08-14] MEDS: Sod Chloride 0.9% Inj 1,000 ML IV.CONT SCH (07:20)
--- NOTE | 2018-08-14 08:04 | P.DCO ---
- Diagnosis (1) Colon cancer - Physical Therapy Order: Evaluate and treat, Improve ambulation, Strength and gait training - Home Health Nursing Order: Medical education, Signs/symptoms of disease process, Wound care and dressing changes (stoma care) - Case Management Consult Yes - Certification I have seen patient Annette Jeffery on 08/14/18. 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
[2018-08-14] MEDS: Sertraline 100 MG Tablet PO SCH (08:53)
[2018-08-14] MEDS: Pantoprazole Inj 40 MG Vial IV.PUSH SCH (08:53)
[2018-08-14] MEDS: Lisinopril 10 MG Tablet PO SCH (08:54)
--- NOTE | 2018-08-14 11:37 | P.PNONC ---
Subjective Interval history: Patient lying in bed, no acute distress. Her daughter is at the bedside. She reports she was able to urinate after Aguilar catheter being removed today. She continues on morphine DETAIL DRAFTER pump. Reports abdominal discomfort. Colostomy bag with a small amount of clear, red fluid. Objective Vital Signs/Intake & Output: Vital Signs 08/13/18 11:34 08/13/18 12:00 08/13/18 14:55 Temperature 98.4 F Pulse Rate 87 Respiratory Rate 16 Blood Pressure 168/83 H 162/98 H Pulse Oximetry 91 L 97 08/13/18 15:05 08/13/18 16:00 08/13/18 19:42 Temperature 98.4 F Pulse Rate 92 H Respiratory Rate 16 Blood Pressure 174/90 H 172/91 H Pulse Oximetry 96 96 08/13/18 20:00 08/14/18 00:00 08/14/18 00:45 Temperature 98.4 F 99 F Pulse Rate 97 H 94 H Respiratory Rate 16 16 Blood Pressure 164/90 H 166/88 H 128/78 Pulse Oximetry 92 L 93 L 08/14/18 04:00 08/14/18 08:00 Temperature 99.1 F 99.2 F Pulse Rate 75 94 H Respiratory Rate 16 18 Blood Pressure 154/78 H 131/94 H Pulse Oximetry 92 L 94 L Intake & Output 08/13/18 08/14/18 08/14/18 18:59 06:59 18:59 Intake Total 2099 1440 / 1440 810 / 810 Output Total 3970 / 3970 Balance 2099 -2530 / -2530 810 / 810 Weight 73.5 kg Intake: IV 2099 1000 / 1000 810 / 810 D5W/NS + KCL 20 mEq Inj 1,000 1999 / 1999 1000 / 1000 ML @ 75 mls/hr IV.CONT .[id number] ROBERTO Rx#:[id number] Flagyl 500 MG Inj 100 ML @ 200 100 / 100 mls/hr IV.SIG Q8H ROBERTO Rx#: [id number] Oral 440 / 440 Output: Urine 3325 / 3325 Urine Amount (Catheter) 300 / 300 Indwelling Urethral Catheter 300 / 300 Stool Amount (Stoma) 345 / 345 Right Lower Abdomen 225 / 225 Right Upper Abdomen 120 / 120 Other: Date of Last Bowel Movement 08/14/18 Result Diagrams: 08/14/18 06:15 08/14/18 06:15 Laboratory Results: Laboratory Results - last 24 hr 08/14/18 08/14/18 06:15 06:15 WBC 12.6 H RBC 3.72 L Hgb 10.1 L Hct 31.6 L MCV 85.0 MCH 27.1 MCHC 31.8 L RDW 19.7 H Plt Count 330 MPV 7.6 Neut % (Auto) 81.5 H Lymph % (Auto) 8.1 L [place] % (Auto) 9.3 H Eos % (Auto) 0.6 Baso % (Auto) 0.5 Neut # (Auto) 10.3 H Lymph # (Auto) 1.0 [place] # (Auto) 1.2 H Eos # (Auto) 0.1 Baso # (Auto) 0.1 WBC Differential . Differential Comment Auto diff final Sodium 139 Potassium 4.4 Chloride 104 Carbon Dioxide 29.6 Anion Gap 5 BUN 3 L Creatinine 0.39 L Estimated GFR Greater than 89 Random Glucose 141 H Calcium 7.9 L Culture Results: Microbiology 08/12/18 02:19 Aerobic Blood Culture - Preliminary Blood - Peripheral No growth in 2 days Anaerobic Blood Culture - Preliminary No growth in 2 days 08/12/18 02:19 Aerobic Blood Culture - Preliminary Blood - Peripheral No growth in 2 days Anaerobic Blood Culture - Preliminary No growth in 2 days Medications: Active Medications Generic Name Dose Route Start Last Admin Trade Name Freq PRN Reason Stop Dose Admin Enalaprilat 1.25 mg 08/12/18 03:30 08/13/18 10:14 Vasotec Inj IV.PUSH 1.25 mg Q6H PRN Administration SBP>160, DBP>90 Enalaprilat 2.5 mg 08/12/18 18:40 08/13/18 23:28 Vasotec Inj IV.PUSH 2.5 mg Q6H PRN Administration SBP > 160 mmHg Gabapentin 300 mg 08/12/18 18:00 08/13/18 19:52 Neurontin PO 300 mg QPM ROBERTO Administration Potassium Chloride/Dextrose/Sod Cl 1,000 mls @ 75 mls/hr 08/12/18 18:45 08/14 04:04 D5w/Ns + Kcl 20 Meq Inj IV.CONT Not Given .[id number] ROBERTO Morphine Sulfate 30 mg in 30 mls @ 0 mls/hr 08/12/18 18:51 08/13/18 05:38 Morphine Inj DETAIL DRAFTER 0 mls/hr UNSCH PRN Administration per DETAIL DRAFTER parameters 0 MG/HR Levothyroxine Sodium 100 mcg 08/12/18 07:00 08/14/18 06:14 Synthroid PO 100 mcg DAILY@0700 ROBERTO Administration Lisinopril 10 mg 08/13/18 18:30 08/14/18 08:54 Prinivil PO 10 mg DAILY ROBERTO Administration Metoclopramide HCl 10 mg 08/12/18 19:00 08/14/18 06:14 Reglan Inj IV.PUSH 10 mg Q12H ROBERTO Administration Protocol Padimate O 1 applicatio 08/12/18 23:11 08/12/18 23:57 Chapstick TOPICAL 1 applicatio UNSCH PRN Administration DRY LIPS Pantoprazole Sodium 40 mg 08/13/18 09:00 08/14/18 08:53 Protonix Inj IV.PUSH 40 mg DAILY ROBERTO Administration Sertraline HCl 100 mg 08/12/18 09:00 08/14/18 08:53 Zoloft PO 100 mg DAILY ROBERTO Administration Sodium Chloride 2 ml 08/12/18 21:00 08/14/18 08:54 Ns Flush IV.FLUSH 2 ml BID ROBERTO Administration Trazodone HCl 75 mg 08/12/18 21:00 08/13/18 21:15 Desyrel PO 75 mg HS ROBERTO Administration Objective Remarks: GENERAL: Elderly female patient, lying in bed, no acute distress. SKIN: Warm and dry. HEAD: Normocephalic. EYES: No scleral icterus. No injection or drainage. NECK: Supple, trachea midline. CARDIOVASCULAR: Regular rate and rhythm without murmurs. RESPIRATORY: Breath sounds equal bilaterally. No accessory muscle use. GASTROINTESTINAL: Abdomen large, soft, tender. Stafford ostomy, minimal clear, red fluid in bag. EXTREMITIES: No cyanosis, or edema. MUSCULOSKELETAL: Adequate muscle tone. NEUROLOGICAL: No obvious focal deficit. Awake, alert, and oriented x3. PSYCHIATRIC: Appropriate mood and affect; insight and judgment normal. Assessment/Plan - Plan Ms. Jeffery is a 73-year-old woman with a history of metastatic colorectal cancer with KRAS positivity. Patient was found to have a near obstructing lesion, declined diverting ileostomy initially and was started on palliative chemotherapy with FOLFOX without Avastin in February 2018. Patient was noted to have a rising CEA, which was concerning for progression of disease. Her chemotherapy with pending a change from FOLFOX to FOLFIRI and was due to start on the day of admission. Patient was admitted for severe abdominal pain. CT scan of abdomen and pelvis showed metastatic disease in the liver, which was known. And prominent distention of the cecum and transverse colon. Patient underwent exploratory laparotomy with loop transverse colostomy on 08/12/2018. Plan: 1. Status post laparotomy with loop transverse colostomy on 08/12/2018. Patient doing well postoperatively. 2. Recommend prophylactic anticoagulation for DVT prophylaxis, when cleared by surgeon. 3. Plan to allow recovery from surgery for 3-4 weeks prior to starting chemotherapy. 4. Continue supportive care. - Attending Statement The exam, history, and the medical decision-making described in the above note were completed with the assistance of the mid-level provider. I reviewed and agree with the findings presented. I attest that I had a [id number] encounter with the patient on the same day, and personally performed and documented my assessment and findings in the medical record. Late entry. Pt was seen earlier in the day. She was OOB, still in pain, ready to eat breakfast. No leg swelling, ostomy only draining liquid. Continue monitor her progress.
--- NOTE | 2018-08-14 11:48 | P.PN ---
Subjective Interval history: Medical deteriorations overnight. Patient herself says she has yet to eat a solid regular meal. No stool output except for mild bloody discharge in the colostomy bag. Physical Exam Vital signs: Vital Signs 08/13/18 12:00 08/13/18 14:55 08/13/18 15:05 Temperature 98.4 F Pulse Rate 87 Respiratory Rate 16 Blood Pressure 168/83 H 162/98 H 174/90 H Pulse Oximetry 97 08/13/18 16:00 08/13/18 19:42 08/13/18 20:00 Temperature 98.4 F 98.4 F Pulse Rate 92 H 97 H Respiratory Rate 16 16 Blood Pressure 172/91 H 164/90 H Pulse Oximetry 96 96 92 L 08/14/18 00:00 08/14/18 00:45 08/14/18 04:00 Temperature 99 F 99.1 F Pulse Rate 94 H 75 Respiratory Rate 16 16 Blood Pressure 166/88 H 128/78 154/78 H Pulse Oximetry 93 L 92 L 08/14/18 08:00 Temperature 99.2 F Pulse Rate 94 H Respiratory Rate 18 Blood Pressure 131/94 H Pulse Oximetry 94 L Intake & Output 08/13/18 08/14/18 08/14/18 18:59 06:59 18:59 Intake Total 2099 1440 / 1440 810 / 810 Output Total 3970 / 3970 Balance 2099 -2530 / -2530 810 / 810 Weight 73.5 kg Intake: IV 2099 1000 / 1000 810 / 810 D5W/NS + KCL 20 mEq Inj 1,000 1999 / 1999 1000 / 1000 ML @ 75 mls/hr IV.CONT .[id number] ROBERTO Rx#:[id number] Flagyl 500 MG Inj 100 ML @ 200 100 / 100 mls/hr IV.SIG Q8H ROBERTO Rx#: [id number] Oral 440 / 440 Output: Urine 3325 / 3325 Urine Amount (Catheter) 300 / 300 Indwelling Urethral Catheter 300 / 300 Stool Amount (Stoma) 345 / 345 Right Lower Abdomen 225 / 225 Right Upper Abdomen 120 / 120 Other: Date of Last Bowel Movement 08/14/18 Narrative: Clear lungs bilaterally, unlabored breathing Positive normoactive bowel sounds Colostomy bag in place with very minimal mucousy stool output that is otherwise slightly bloody, stoma tissue appears healthy - Urinary Catheter Management Indwelling Urethral Catheter Cath placed during this visit: yes, but has since been removed by the nurse Reason for continuing: Decision to DC catheter Insertion date: 08/12/18 Insertion time: 17:58 Removal date: 08/14/18 Removal time: 08:50 Results - Labs CBC & Chem 7: 08/14/18 06:15 08/14/18 06:15 Laboratory Results - last 24 hr 08/14/18 08/14/18 06:15 06:15 WBC 12.6 H RBC 3.72 L Hgb 10.1 L Hct 31.6 L MCV 85.0 MCH 27.1 MCHC 31.8 L RDW 19.7 H Plt Count 330 MPV 7.6 Neut % (Auto) 81.5 H Lymph % (Auto) 8.1 L [place] % (Auto) 9.3 H Eos % (Auto) 0.6 Baso % (Auto) 0.5 Neut # (Auto) 10.3 H Lymph # (Auto) 1.0 [place] # (Auto) 1.2 H Eos # (Auto) 0.1 Baso # (Auto) 0.1 WBC Differential . Differential Comment Auto diff final Sodium 139 Potassium 4.4 Chloride 104 Carbon Dioxide 29.6 Anion Gap 5 BUN 3 L Creatinine 0.39 L Estimated GFR Greater than 89 Random Glucose 141 H Calcium 7.9 L Microbiology 08/12/18 02:19 Blood - Peripheral Aerobic Blood Culture - Preliminary No growth in 2 days 08/12/18 02:19 Blood - Peripheral Anaerobic Blood Culture - Preliminary No growth in 2 days 08/12/18 02:19 Blood - Peripheral Aerobic Blood Culture - Preliminary No growth in 2 days 08/12/18 02:19 Blood - Peripheral Anaerobic Blood Culture - Preliminary No growth in 2 days Assessment and Plan - Plan Ms. Jeffery is a very pleasant 73-year-old patient with history of colorectal cancer status post chemotherapy about 4 weeks ago, liver cancer, hypothyroidism , and congestive heart failure of uncertain etiology who presented to the ER on 08/11/2018 for evaluation of abdominal pain with nausea and vomiting, admitted with bowel obstruction. Status post exploratory laparotomy and colostomy Abdominal pain with nausea and vomiting -Status post exploratory laparotomy, colostomy, -Colorectal surgery following,Supposed to be on regular diet for lunch this afternoon, should be transitioned from ASSEMBLY WORKER pump to oxycodone Colorectal cancer -oncology following Leukocytosis with neutrophilia and monocytosis -Patient is afebrile; chemotherapy 4 weeks ago -UA negative -Chest x-ray with no acute cardiopulmonary disease identified Hypokalemia likely secondary to nausea and vomiting -resolved Hypothyroidism -home Synthroid DVT prophylaxis SCDs; pending clearance from surgery to resume lovenox Discharge Planning: PT and OT evaluations pending, anticipate will need some level of rehab upon discharge
--- NOTE | 2018-08-14 14:42 | P.PNWCN ---
Wound Care Nurse Consult Description: Patient seen for follow up of new ostomy teaching Communicated with: RN Denise, [facility] and Patient Recommendation: Empty pouch when 1/3 to 1/2 full. Change ostomy appliance every 5 to 7 days or when leaking. Do not tape edges of appliance to reinforce, if leaking please change. Monitor stoma for output, appearance and color Do not cut moldable appliances. Bowel Diversion Stoma - Bowel Stoma Right Upper Abdomen Stoma Edema: Yes (Stoma measures 2 1/2 inches ) Stoma Diameter: 64 (mm) Stoma Appearance: Beefy Red Loop Supporting Javon: Yes Collection Device: Two-piece, Moldable Wafer Drainage Description: Liquid, Mucoid, Blood-Tinged Wafer Size: 4 Inch Cut to Fit 100mm Cecille-Stomal Surrounding Tissue Sensation Description: No Symptoms - Additional Information Additional Information: Patient seen on [facility] for follow up of new ostomy teaching. Colostomy appliance is dry and intact. Ostomy 4 inch cut to fit kit delivered.~20ml of sero- sanguinous mucoid drainage is noted in pouch. Stoma is visible through transparent pouch and measures ~64 mm in diameter. Javon is still in place. Patient is very tired, reports not sleeping well last night. Limited teaching done today. Scheduled ostomy teaching tomorrow with patient's daughter at 1030.
[2018-08-14] MEDS ORDERED: Heparin Central Flush 100 UNIT/ML 5 ML Vial IV.FLUSH PRN (15:04)
[2018-08-14] MEDS: Heparin Central Flush 100 UNIT/ML 5 ML Vial IV.FLUSH PRN ×2 (16:34→18:41)
[2018-08-14] MEDS: Gabapentin 300 MG Capsule PO SCH (18:10)
[2018-08-14] MEDS: traZODone 50 MG Tablet PO SCH (20:54)
--- NOTE | 2018-08-14 21:19 | P.PNCS ---
Subjective Colorectal Surgery Post Op Day #: 2 Interval history: afebrile, VSS UO good frantz PO Objective Result Diagrams: 08/14/18 06:15 08/14/18 06:15 Objective Remarks: PE alert Abd - softer, stoma swollen, less tympany, some output from stoma Assessment and Plan - Assessment (1) Colon cancer Code(s): C18.9 - Malignant neoplasm of colon, unspecified Status: Acute - Plan Imp: OOB decr IVF start PO, adv (1) Colon cancer Qualifiers: Colon location: splenic flexure Qualified Code(s): C18.5 - Malignant neoplasm of splenic flexure
[2018-08-14] MEDS: Enoxaparin Inj 30 MG/0.3 ML Syringe SQ SCH (23:34)
[2018-08-15] MEDS: Levothyroxine 100 MCG Tablet PO SCH (06:10)
[2018-08-15] MEDS: Heparin Central Flush 100 UNIT/ML 5 ML Vial IV.FLUSH PRN (06:10)
[2018-08-15] MEDS: Pantoprazole Inj 40 MG Vial IV.PUSH SCH (08:13)
[2018-08-15] MEDS: Sertraline 100 MG Tablet PO SCH (08:13)
[2018-08-15] MEDS: Lisinopril 10 MG Tablet PO SCH (08:13)
[2018-08-15] MEDS ORDERED: Lisinopril 10 MG Tablet PO ONE (08:28)
[2018-08-15] MEDS: Lisinopril 20 MG Tablet PO SCH (09:51)
--- NOTE | 2018-08-15 10:02 | P.DCO ---
- Diagnosis (2) Abdominal pain - Physical Therapy Order: Evaluate and treat - Occupational Therapy Order: Evaluate and treat - Home Health Nursing Order: Wound care and dressing changes - Case Management Consult Yes - Certification I have seen patient Annette Jeffery on 08/15/18. My clinical findings support the need for the requested home health care services because: Limited ability to care for self I certify that my clinical findings support that this patient is homebound because: Unsafe to leave home unassisted (2) Abdominal pain Qualifiers: Abdominal location: generalized Qualified Code(s): R10.84 - Generalized abdominal pain
--- NOTE | 2018-08-15 10:03 | P.DS ---
Date of admission: 08/12/18 18:40 Primary care physician: Mick Tadeo Brief History from admission: Ms. Jeffery is a very pleasant 73-year-old patient with history of colorectal cancer status post chemotherapy about 4 weeks ago, liver cancer, hypothyroidism , and congestive heart failure of uncertain etiology who presented to the ER on 08/11/2018 for evaluation of abdominal pain with nausea and vomiting. There was some concern for bowel obstruction in the emergency room and she was admitted to [facility] after the ER physician spoke with her colorectal surgeon Dr. Glasgow. The patient is seen in the emergency department. She reports a 4 day history of severe, cramping abdominal pain that is diffuse throughout the abdomen. The pain is relieved by nothing and is aggravated by movement and eating and drinking. The pain occurs intermittently throughout the day. The patient denies any associated with fever or chills. She does report she had some the week before and was treated with Cipro by her oncologist. She denies any chest pain, shortness of breath, or diarrhea. She reports constipation with no bowel movement 3 days. DS: Diagnosis - Discharge Diagnosis (1) Colostomy care Status: Acute (2) Abdominal pain Status: Acute DS: Medications - Discharge Medications Prescriptions: lisinopril 30 mg PO DAILY #30 tab DS: Summary Hospital Course: Patient was admitted and underwent exploratory laparotomy with loop transverse colostomy on 08/12/2018. Patient was eventually transitioned to p.o. intake and was tolerating food well, had bowel movements in her colostomy. Oncology followed the patient, and recommended outpatient follow-up with chemotherapy. Patient has met maximal benefit from hospitalization is clinically stable for discharge once cleared with gen surgery and V/S remain stable. - Time Spent with Patient Total time spent providing and/or coordinating discharge services: Less than 30 minutes - Quality: VTE Deep Vein Thrombosis/Pulmonary Embolism Present on Admission: No Exam Vital signs: Vital Signs 08/14/18 12:00 08/14/18 16:00 08/14/18 20:43 Temperature 98.5 F 98.2 F 97.6 F Pulse Rate 94 H 91 H 94 H Respiratory Rate 16 18 18 Blood Pressure 177/90 H 150/82 H 160/98 H Pulse Oximetry 93 L 95 95 08/14/18 23:27 08/15/18 03:44 08/15/18 04:00 Temperature 98.7 F 98.3 F Pulse Rate 96 H 95 H Respiratory Rate 19 16 19 Blood Pressure 174/91 H 162/88 H Pulse Oximetry 94 L 95 08/15/18 08:00 08/15/18 09:27 Temperature 97.5 F L Pulse Rate 87 Respiratory Rate 16 Blood Pressure 156/94 H 153/84 H Pulse Oximetry 99 Intake & Output 08/14/18 08/15/18 08/15/18 18:59 06:59 18:59 Intake Total 2826 / 2826 240 / 240 Output Total 500 / 500 900 / 900 Balance 2326 / 2326 -660 / -660 Weight 77 kg Intake: IV 1810 / 1810 D5W/NS + KCL 20 mEq Inj 1,000 1000 / 1000 ML @ 75 mls/hr IV.CONT .[id number] [facility] Rx#:[id number] Oral 1016 / 1016 240 / 240 Output: Urine 500 / 500 800 / 800 Stool Amount (Stoma) 100 / 100 Right Lower Abdomen 100 / 100 Other: # Voids 4 Date of Last Bowel Movement 08/14/18 08/14/18 08/15/18 Narrative: Colostomy bag in place with very minimal mucousy stool output that is otherwise slightly bloody, stoma tissue appears healthy Results Procedures completed during hospitalization: exploratory laparotomy with loop transverse colostomy on 08/12/2018. Labs on day of discharge: Preliminary micro results at discharge 08/12/18 02:19 Aerobic Blood Culture - Preliminary Blood - Peripheral No growth in 2 days Anaerobic Blood Culture - Preliminary No growth in 2 days 08/12/18 02:19 Aerobic Blood Culture - Preliminary Blood - Peripheral No growth in 2 days Anaerobic Blood Culture - Preliminary No growth in 2 days - Impressions ITS Impressions Chest X-Ray 08/12/18 01:39 CONCLUSION: No acute cardiopulmonary disease identified. Abdomen X-Ray 08/12/18 03:09 CONCLUSION: Nonspecific bowel gas pattern. Abdomen/Pelvis CT 08/12/18 04:54 CONCLUSION: 1. Metastatic disease in the liver with increase in size of liver lesions. 2. Prominent distention of the cecum and transverse colon. Transition point is at the splenic flexure. There is partial telescoping of a portion of the colon into the adjacent colon at this level that has a similar appearance to the prior study and may represent region of prior surgery. May indicate transient intussusception. 3. Distended gallbladder. Discharge Plan - Discharge Disposition Patient Disposition: /Home Health Service - Discharge Condition Condition: Stable - Discharge Order Discharge Orders: Discharge Order (Routine); Ordered 08/16/18 Ordered By: Jonathan Plata - Discharge Details Anticipated Discharge Date: 08/16/18 - Physicians Team Attending Provider: Rebel Green Other Providers: Hugo Arias ; Faizan Glasgow MD ; June Malone MD
--- NOTE | 2018-08-15 12:14 | P.PNWCN ---
Wound Care Nurse Consult Description: Patient seen for follow up of new ostomy teaching Communicated with: RN Denise CHRISTOPHER and Doctor Recommendation: Empty pouch when 1/3 to 1/2 full. Change ostomy appliance every 5 to 7 days or when leaking. Do not tape edges of appliance to reinforce, if leaking please change. Monitor stoma for output, appearance and color Do not cut moldable appliances. Incision - Incision Right Abdomen Other Cover Dressing: Foam tape Bowel Diversion Stoma - Bowel Stoma Right Upper Abdomen Stoma Edema: Yes (Stoma measures 2 1/2 inches ) Stoma Diameter: 64 (mm) Stoma Appearance: Beefy Red Loop Supporting Javon: Yes Collection Device: Two-piece Drainage Description: Soft, Liquid Wafer Size: 4 Inch Cut to Fit 100mm Stoma Care: Pouch Changed Cecille-Stomal Skin Appearance: Intact, Moist Cecille-Stomal Surrounding Tissue Sensation Description: No Symptoms - Additional Information Additional Information: Patient seen on [facility] for follow up of new ostomy teaching. Colostomy appliance needs to be changed today. ~20ml of sero-sanguinous mucoid drainage and ~10 ml of soft brown effluent is assessed in pouch today. Stoma is visible through transparent pouch and measures ~64 mm in diameter. Javon is still in place. Patient's daughter is in room with patient and ready for teaching. Reviewed surgery type, when to empty ostomy appliance, stoma irrigation, and types of ostomy appliances. Will change ostomy appliance after patient ok to shower.
[2018-08-15 15:41] LABS: Bilirubin,Urine Negative (Negative); Clarity,Urine Clear (Clear); Color,Urine Yellow (Yellw/Straw); Glucose,Urine (UA) Negative (Negative); Leukocyte Esterase,Urine Negative (Negative); Nitrite,Urine Negative (Negative); Specific Gravity,Urine 1.012 (1.002-1.035); Squamous Epithelial Cell,Urine 1 /hpf (0-5)
--- NOTE | 2018-08-15 17:57 | P.PNONC ---
Subjective Interval history: I was so tired I slept till 930 this morning. Ostomy site pink draining greenish formed stool. I cannot find a chair than uncomfortable in. Claims she has a very comfortable bed at home. Friend visiting at bedside. Objective Vital Signs/Intake & Output: Vital Signs 08/14/18 20:43 08/14/18 23:27 08/15/18 03:44 Temperature 97.6 F 98.7 F Pulse Rate 94 H 96 H Respiratory Rate 18 19 16 Blood Pressure 160/98 H 174/91 H Pulse Oximetry 95 94 L 08/15/18 04:00 08/15/18 08:00 08/15/18 09:27 Temperature 98.3 F 97.5 F L Pulse Rate 95 H 87 Respiratory Rate 19 16 Blood Pressure 162/88 H 156/94 H 153/84 H Pulse Oximetry 95 99 08/15/18 12:00 08/15/18 15:55 08/15/18 17:32 Temperature 97.4 F L 99.0 F Pulse Rate 88 93 H Respiratory Rate 16 18 Blood Pressure 145/80 H 142/73 H Pulse Oximetry 94 L 94 L 94 L Intake & Output 08/14/18 08/15/18 08/15/18 18:59 06:59 18:59 Intake Total 2826 / 2826 240 / 240 Output Total 500 / 500 900 / 900 Balance 2326 / 2326 -660 / -660 Weight 77 kg Intake: IV 1810 / 1810 D5W/NS + KCL 20 mEq Inj 1,000 1000 / 1000 ML @ 75 mls/hr IV.CONT .[id number] [facility] Rx#:[id number] Oral 1016 / 1016 240 / 240 Output: Urine 500 / 500 800 / 800 Stool Amount (Stoma) 100 / 100 Right Lower Abdomen 100 / 100 Other: # Voids 4 Date of Last Bowel Movement 08/14/18 08/14/18 08/15/18 Result Diagrams: 08/14/18 06:15 08/14/18 06:15 Laboratory Results: Laboratory Results - last 24 hr 08/15/18 14:49 Urine Color Yellow Urine Clarity Clear Urine pH 6.0 Ur Specific [place] 1.012 Urine Protein Negative Urine Glucose (UA) Negative Urine Ketones Negative Urine Occult Blood Negative Urine Nitrate Negative Urine Bilirubin Negative Urine Urobilinogen Less than 2 Ur Leukocyte Esterase Negative Urine WBC 1 Ur Squamous Epith Cells 1 Micro UA Comment Culture not ind Ur Microscopic Review Not Reportable Urine Culture Comments Culture not ind Culture Results: Microbiology 08/12/18 02:19 Aerobic Blood Culture - Preliminary Blood - Peripheral No growth in 3 days Anaerobic Blood Culture - Preliminary No growth in 3 days 08/12/18 02:19 Aerobic Blood Culture - Preliminary Blood - Peripheral No growth in 3 days Anaerobic Blood Culture - Preliminary No growth in 3 days Medications: Active Medications Generic Name Dose Route Start Last Admin Trade Name Freq PRN Reason Stop Dose Admin Enalaprilat 1.25 mg 08/12/18 03:30 08/14/18 20:53 Vasotec Inj IV.PUSH 1.25 mg Q6H PRN Administration SBP>160, DBP>90 Enalaprilat 2.5 mg 08/12/18 18:40 08/13/18 23:28 Vasotec Inj IV.PUSH 2.5 mg Q6H PRN Administration SBP > 160 mmHg Enoxaparin Sodium 30 mg 08/14/18 22:45 08/14/18 23:34 Lovenox Inj SQ Not Given HS ROBERTO Gabapentin 300 mg 08/12/18 18:00 08/14/18 18:10 Neurontin PO 300 mg QPM ROBERTO Administration Heparin Sodium (Porcine) 250 unit 08/14/18 15:04 08/15/18 06:10 Heparin Central Flush IV.FLUSH 250 unit PRN PRN Administration Flush Infusapot Morphine Sulfate 30 mg in 30 mls @ 0 mls/hr 08/12/18 18:51 08/13/18 05:38 Morphine Inj POACHER OPERATOR 0 mls/hr UNSCH PRN Administration per POACHER OPERATOR parameters 0 MG/HR Levothyroxine Sodium 100 mcg 08/12/18 07:00 08/15/18 06:10 Synthroid PO 100 mcg DAILY@0700 ROBERTO Administration Lisinopril 20 mg 08/15/18 09:00 08/15/18 09:51 Prinivil PO Not Given DAILY ROBERTO Metoclopramide HCl 10 mg 08/12/18 19:00 08/15/18 06:10 Reglan Inj IV.PUSH 10 mg Q12H ROBERTO Administration Protocol Oxycodone/Acetaminophen 2 tab 08/12/18 18:40 08/15/18 13:14 Percocet 5/325 Mg PO 1 tab Q4H PRN Administration PAIN SCALE 6 TO 10 Padimate O 1 applicatio 08/12/18 23:11 08/12/18 23:57 Chapstick TOPICAL 1 applicatio UNSCH PRN Administration DRY LIPS Pantoprazole Sodium 40 mg 08/13/18 09:00 08/15/18 08:13 Protonix Inj IV.PUSH 40 mg DAILY ROBERTO Administration Sertraline HCl 100 mg 08/12/18 09:00 08/15/18 08:13 Zoloft PO 100 mg DAILY ROBERTO Administration Sodium Chloride 2 ml 08/12/18 21:00 08/15/18 08:13 Ns Flush IV.FLUSH 2 ml BID ROBERTO Administration Trazodone HCl 75 mg 08/12/18 21:00 08/14/18 20:54 Desyrel PO 75 mg HS ROBERTO Administration Objective Remarks: GENERAL: Well-nourished, well-developed patient. SKIN: Warm and dry. HEAD: Normocephalic. EYES: No scleral icterus. No injection or drainage. NECK: Supple, trachea midline. No JVD or lymphadenopathy. LYMPHATIC: No adenopathy. CARDIOVASCULAR: Regular rate and rhythm without murmurs. RESPIRATORY: Breath sounds equal bilaterally. No accessory muscle use. GASTROINTESTINAL: Abdomen soft, non-tender, vertical wound with dry dressing intact. Right mid quadrant ostomy site. EXTREMITIES: No cyanosis, or edema. MUSCULOSKELETAL: Adequate muscle tone. NEUROLOGICAL: No obvious focal deficit. Awake, alert, and oriented x3. PSYCHIATRIC: Appropriate mood and affect; insight and judgment normal. Assessment/Plan - Plan Ms. Jeffery is a 73-year-old woman with a history of metastatic colorectal cancer with KRAS positivity. Patient was found to have a near obstructing lesion, declined diverting ileostomy initially and was started on palliative chemotherapy with FOLFOX without Avastin in February 2018. Patient was noted to have a rising CEA, which was concerning for progression of disease. Before she was able to start second line chemotherapy with FOLFIRI she presented to the emergency room with obstructive symptoms. She underwent exploratory laparotomy with loop transverse colostomy on 08/12/2018. She is recovering postoperatively well. Plan: 1. Status post laparotomy with loop transverse colostomy on 08/12/2018. 2. Continue DVT prophylaxis. 3. Follow-up in 1-2 weeks after discharge. 4. Okay for discharge from oncology standpoint.
[2018-08-15] MEDS: Gabapentin 300 MG Capsule PO SCH (18:13)
--- NOTE | 2018-08-15 18:29 | P.PNWCN ---
Wound Care Nurse Consult Description: Patient seen for follow up of new ostomy teaching Communicated with: [facility], and patient Recommendation: Empty pouch when 1/3 to 1/2 full. Change ostomy appliance every 5 to 7 days or when leaking. Do not tape edges of appliance to reinforce, if leaking please change. Include javon within wafer, do not apply wafer over javon. Monitor stoma for output, appearance and color Do not cut moldable appliances. Incision - Incision Right Abdomen Other Cover Dressing: Foam tape Midline Abdomen Incision Assessment: Ongoing Incision Type: Incision Incision Description: Wood (20 bobby) Surrounding Tissue Temperature: Cool Drainage Amount: None Incision Dressing Status: Changed Primary Dressing: Adhesive Dressing Bowel Diversion Stoma - Bowel Stoma Right Upper Abdomen Stoma Edema: Yes (Stoma measures 2 1/2 inches ) Stoma Diameter: 64 (mm) Stoma Appearance: Beefy Red, Protruding, Round Loop Supporting Javon: Yes Collection Device: Two-piece Drainage Description: Soft, Liquid Wafer Size: 4 Inch Cut to Fit 100mm Stoma Care: Pouch and Wafer Changed, Skin Care Cecille-Stomal Skin Appearance: Intact, Erythema (Blanching) Cecille-Stomal Surrounding Tissue Sensation Description: No Symptoms - Additional Information Additional Information: Patient seen again on [facility] for Colostomy irrigation. Patient has a loop transverse colostomy. small amount of formed soft brown effluent is seen on stoma. Colostomy was irrigated with 200ml of warm tap water. After 1 hour, RN reports ~100ml of liquid brown effluent with flecks of soft brown effluent.Removed colostomy appliance in place and applied new two piece 4 inch colostomy appliance including javon within wafer and pouch. Patient tolerated well , Gave patient step by step instruction during change.
[2018-08-15] MEDS: Enoxaparin Inj 30 MG/0.3 ML Syringe SQ SCH (21:02)
[2018-08-15] MEDS: traZODone 50 MG Tablet PO SCH (21:05)
--- NOTE | 2018-08-15 21:32 | P.PNCS ---
Subjective Colorectal Surgery Post Op Day #: 3 Interval history: afebrile, VSS UO good stoma functioning Objective Result Diagrams: 08/14/18 06:15 08/14/18 06:15 Objective Remarks: PE alert Abd - softer, stoma swollen, less tympany, some output from stoma wound dry Assessment and Plan - Assessment (1) Colon cancer Code(s): C18.9 - Malignant neoplasm of colon, unspecified Status: Acute - Plan Imp: OOB decr IVF start PO, adv DC plans (1) Colon cancer Qualifiers: Colon location: splenic flexure Qualified Code(s): C18.5 - Malignant neoplasm of splenic flexure
[2018-08-16] MEDS: Levothyroxine 100 MCG Tablet PO SCH (06:23)
--- NOTE | 2018-08-16 06:27 | XR ---
EXAM DATE: 08/16/2018 12:00 AM EDT AGE/SEX: 73 years / Female INDICATIONS: Shortness of breath, possible pneumothorax. CLINICAL DATA: This is the patient's subsequent encounter. Patient reports that signs and symptoms h ave been present for 4 - 6 days and indicates a pain score of 0/10. MEDICAL/SURGICAL HISTORY: Congestive heart failure. Hypothyroidism. Skin ca. Hysterectomy. T onsillectomy. COMPARISON: [facility] – [place], [place]ST 1V SINGLE AP, 08/12/2018. . FINDINGS: There is a right-sided [id number] in place. The heart size is normal. There is increased density a t the medial left retrocardiac area. Lungs appear otherwise clear. CONCLUSION: Left lower lobe atelectasis or consolidation. Electronically signed by: Jonathan Bautista MD 08/16/2018 6:26 AM EDT
[2018-08-16 08:44] VITALS: RESP 16
[2018-08-16] MEDS: Sertraline 100 MG Tablet PO SCH (08:49)
[2018-08-16] MEDS: Lisinopril 20 MG Tablet PO SCH (08:49)
[2018-08-16] MEDS: Pantoprazole Inj 40 MG Vial IV.PUSH SCH (08:49)
[2018-08-16 12:32] VITALS: BP 160/70; PULSE 92; TEMP 98.3
[2018-08-16 13:50] VITALS: O2SAT 93
--- NOTE | 2018-08-16 16:37 | P.PNADD ---
Addendum to Inpatient Note Reason for Addendum: Additional Documentation Additional information: 73-year-old female admitted for abdominal pain secondary to colorectal cancer. She has a discharge placed yesterday and is awaiting home health care to be arranged. Overnight she complained of shortness of breath, oxygen walk test was performed today was acceptable (no oxygen needed). Follow-up chest x-ray ordered yesterday showed atelectasis versus early consolidation on her left lower lobe. She has low-grade fevers. When I went in for reevaluation she had gone home. We will attempt to get her antibiotics at home to cover for possible early pneumonia.
== END 2018-08-16 15:37 | disposition home health service (06) ==
LOC: NEPE 01:02 → INTOOBSV 03:24 → NEDA 03:24 → HCIN 05:31
PROVIDERS: ADMIT Family Medicine; ATTEND Family Medicine